=== PATIENT | female | born 1950 | race Caucasian/White ===

== ENCOUNTER → 2021-10-07 08:34 | Outpatient (BNVA) | payer MEDICARE, OTHER, SELFPAY | PROVIDERS: Family Provider Family Medicine; PCP Family Medicine; Visit Provider Internal Medicine Cardiovascular Disease | DX: Z79.01 Long term (current) use of anticoagulants (principal) ==

== ENCOUNTER → 2021-10-13 08:30 | Outpatient (BNVA) | payer MEDICARE, OTHER, SELFPAY | PROVIDERS: Family Provider Family Medicine; PCP Family Medicine; Visit Provider Internal Medicine Cardiovascular Disease | DX: Z79.01 Long term (current) use of anticoagulants (principal) ==

== ENCOUNTER → 2021-10-21 08:17 | Outpatient (BNVA) | payer MEDICARE, OTHER, SELFPAY | PROVIDERS: Family Provider Family Medicine; PCP Family Medicine; Visit Provider Internal Medicine Cardiovascular Disease | DX: Z79.01 Long term (current) use of anticoagulants (principal) ==

== ENCOUNTER → 2021-10-27 10:12 | Outpatient (BNVA) | payer MEDICARE, OTHER, SELFPAY | PROVIDERS: Family Provider Family Medicine; PCP Family Medicine; Visit Provider Internal Medicine Cardiovascular Disease | DX: I48.21 Permanent atrial fibrillation (principal); Z79.01 Long term (current) use of anticoagulants ==

== ENCOUNTER → 2021-11-05 12:29 | Outpatient (BNVA) | payer MEDICARE, OTHER, SELFPAY | PROVIDERS: Family Provider Family Medicine; PCP Family Medicine; Visit Provider Internal Medicine Cardiovascular Disease | DX: Z79.01 Long term (current) use of anticoagulants (principal) ==

== ENCOUNTER → 2021-11-12 13:00 | Outpatient (BNVA) | payer MEDICARE, OTHER, SELFPAY | PROVIDERS: Family Provider Family Medicine; PCP Family Medicine; Visit Provider Internal Medicine Cardiovascular Disease | DX: Z79.01 Long term (current) use of anticoagulants (principal) ==

== ENCOUNTER → 2021-11-16 16:38 | Outpatient (BNVA) | payer MEDICARE, OTHER, SELFPAY | PROVIDERS: Family Provider Family Medicine; PCP Family Medicine; Visit Provider Internal Medicine Cardiovascular Disease | DX: Z79.01 Long term (current) use of anticoagulants (principal) ==

== ENCOUNTER → 2021-11-24 09:58 | Outpatient (BNVA) | payer MEDICARE, OTHER, SELFPAY | PROVIDERS: Family Provider Family Medicine; PCP Family Medicine; Visit Provider Internal Medicine Cardiovascular Disease | DX: Z79.01 Long term (current) use of anticoagulants (principal) ==

== ENCOUNTER → 2021-12-01 09:30 | Outpatient (BNVA) | payer MEDICARE, OTHER, SELFPAY | PROVIDERS: Family Provider Family Medicine; PCP Family Medicine; Visit Provider Internal Medicine Cardiovascular Disease | DX: Z79.01 Long term (current) use of anticoagulants (principal) ==

== ENCOUNTER → 2021-12-09 12:18 | Outpatient (BNVA) | payer MEDICARE, OTHER, SELFPAY | PROVIDERS: Family Provider Family Medicine; PCP Family Medicine; Visit Provider Internal Medicine Cardiovascular Disease | DX: Z79.01 Long term (current) use of anticoagulants (principal) ==

== ENCOUNTER → 2021-12-13 15:34 | Outpatient (BNVA) | payer MEDICARE, OTHER, SELFPAY | PROVIDERS: Family Provider Family Medicine; PCP Family Medicine; Visit Provider Internal Medicine Cardiovascular Disease | DX: R06.02 Shortness of breath (principal); Z95.0 Presence of cardiac pacemaker; Z95.2 Presence of prosthetic heart valve; I48.20 Chronic atrial fibrillation, unspecified; Z79.01 Long term (current) use of anticoagulants; I50.33 Acute on chronic diastolic (congestive) heart failure | CPT/HCPCS: 36415; 80048; 83880; 93005; 99214; 99215 ==

== ENCOUNTER → 2021-12-15 09:07 | Outpatient (BNVA) | payer MEDICARE, OTHER, SELFPAY | PROVIDERS: Family Provider Family Medicine; PCP Family Medicine; Visit Provider Internal Medicine Cardiovascular Disease | DX: Z79.01 Long term (current) use of anticoagulants (principal) ==

== ENCOUNTER → 2021-12-23 08:42 | Outpatient (BNVA) | payer MEDICARE, OTHER, SELFPAY | PROVIDERS: Family Provider Family Medicine; PCP Family Medicine; Visit Provider Internal Medicine Cardiovascular Disease | DX: R06.02 Shortness of breath (principal); Z86.79 Personal history of other diseases of the circulatory system; Z79.01 Long term (current) use of anticoagulants | CPT/HCPCS: 80048; 83880 ==

== ENCOUNTER → 2021-12-31 09:49 | Outpatient (BNVA) | payer MEDICARE, OTHER, SELFPAY | PROVIDERS: Family Provider Family Medicine; PCP Family Medicine; Visit Provider Internal Medicine Cardiovascular Disease | DX: Z79.01 Long term (current) use of anticoagulants (principal) ==

== ENCOUNTER → 2022-01-05 10:07 | Outpatient (BNVA) | payer MEDICARE, OTHER, SELFPAY | PROVIDERS: Family Provider Family Medicine; PCP Family Medicine; Visit Provider Internal Medicine Cardiovascular Disease | DX: Z79.01 Long term (current) use of anticoagulants (principal) ==

== ENCOUNTER → 2022-01-06 10:43 | Outpatient (BNVA) | payer MEDICARE, OTHER, SELFPAY | PROVIDERS: Family Provider Family Medicine; PCP Family Medicine; Visit Provider Internal Medicine Cardiovascular Disease | DX: Z95.2 Presence of prosthetic heart valve (principal); R06.02 Shortness of breath; Z86.79 Personal history of other diseases of the circulatory system | CPT/HCPCS: 80048; 83880 ==

== ENCOUNTER → 2022-01-13 09:00 | Outpatient (BNVA) | payer MEDICARE, OTHER, SELFPAY | PROVIDERS: Family Provider Family Medicine; PCP Family Medicine; Visit Provider Internal Medicine Cardiovascular Disease | DX: Z79.01 Long term (current) use of anticoagulants (principal) ==

== ENCOUNTER → 2022-01-19 11:29 | Outpatient (BNVA) | payer MEDICARE, OTHER, SELFPAY | PROVIDERS: Family Provider Family Medicine; PCP Family Medicine; Visit Provider Internal Medicine Cardiovascular Disease | DX: Z79.01 Long term (current) use of anticoagulants (principal) ==

== ENCOUNTER 2022-01-20 13:07 | Outpatient (CLI) | payer MEDICARE, OTHER, SELFPAY ==
--- NOTE | 2022-01-20 13:45 | USCV_ITS ---
Richelle Klein Age: 71 Gender: F : 1950 Exam Date: 01/20/2022 13:27 Ordering Phys: Zachariah Harris MD ([email or web address]) Technologist: GRIS Exam Location: [facility] [place] Indication: AVR/MVR BP: 178 / 74 HR: 75 Rhythm: Atrial fibrillation Technical Quality: Adequate MEASUREMENTS (Male / Female) Normal Values 2D ECHO LVOT Diameter 2.0 cm LV Ejection Fraction MOD 2C 62.6 % LV Ejection Fraction 2C AL 62.2 % LA Diameter 4.8 cm LA Width 4.3 cm LA Height 6.0 cm RA Width 4.5 cm RA Height 6.7 cm Aorta at Sinotubular Diameter 1.4 cm IVC Diameter 2.5 cm M-MODE Aortic Annulus Diameter 2.1 cm LA Ao Ratio MM 1.9 DOPPLER AV Peak Velocity 347.0 cm/s LVOT Peak Velocity 111.0 cm/s AV Area Cont Eq vti 1.2 cm squared AV Area Cont Eq pk 1.0 cm squared MV Peak Velocity 228.0 cm/s MV Area PHT 5.0 cm squared MV E' Velocity 94.0 cm/s Mitral E to MV E' Ratio 9.3 Mitral E to LV E' Lateral Ratio 9.6 Mitral E to LV E' Septal Ratio 9.0 TR Peak Velocity 336.0 cm/s TR Peak Gradient 45.2 mmHg TR Mean Velocity 272.2 cm/s TR Mean Gradient 29.7 mmHg TR Velocity Time Integral 95.6 cm TV Peak E Velocity 90.0 cm/s Right Atrial Pressure 8.0 mmHg Pulmonary Artery Systolic Pressu 53.2 mmHg PV Peak Velocity 161.0 cm/s RV Acceleration Time 0.1 s RV Ejection Time 0.3 s RV AcT/ET 0.3 FINDINGS Left Ventricle Normal left ventricular size and systolic function, EF 64 %. No regional wall motion abnormalities. Right Ventricle Normal right ventricular size and systolic function. Pacemaker wire in the right ventricle Right Atrium Moderately increased right atrial size. Pacemaker wire in the right atrium Left Atrium Moderately increased left atrial size. Mitral Valve The bioprosthetic valve in the mitral position appears to be well-seated. Peak gradient across the mitral valve was 21 mmHg with a mean of 6 mmHg. Aortic Valve Bioprosthetic valve in the aortic position appears to be well- seated. The peak velocity of 3.42 m/s with a peak gradient of the 48 and a mean gradient of 22 mmHg. Valve area calculated to be 1.2 cm squared. Tricuspid Valve [id number] tricuspid valve regurgitation. Moderate pulmonary hypertension. Estimated pulmonary artery peak systolic pressure 53 mmHg Pulmonic Valve Mild pulmonary valve regurgitation. Pericardium No pericardial effusion. Aorta Normal aortic annulus size. IVC IVC could not be visualized well CONCLUSIONS Normal left ventricular size and systolic function, EF 64 %. No regional wall motion abnormalities. The bioprosthetic valve in the mitral position appears to be well-seated. Peak gradient across the mitral valve was 21 mmHg with a mean of 6 mmHg. Bioprosthetic valve in the aortic position appears to be well- seated. The peak velocity of 3.42 m/s with a peak gradient of the 48 and a mean gradient of 22 mmHg. Valve area calculated to be 1.2 cm squared. [id number] tricuspid valve regurgitation. Moderate pulmonary hypertension. Estimated pulmonary artery peak systolic pressure 53 mmHg. Moderate biatrial enlargement. There is no pericardial effusion. There are no intracardiac masses. Compared to the study from 05/08/2019, there may not be a significant change Dr Zachariah Harris MD [facility] (Electronically Signed) Final Date: 21 January 2022 18:16 S
== END 2022-01-20 13:08 | disposition home or self-care (01) ==
LOC: RAD 13:09
PROVIDERS: PCP Family Medicine; Visit Provider Internal Medicine Cardiovascular Disease
DX: Z95.4 Presence of other heart-valve replacement (principal); I07.1 Rheumatic tricuspid insufficiency; I27.20 Pulmonary hypertension, unspecified; I51.7 Cardiomegaly
CPT/HCPCS: 93306

== ENCOUNTER → 2022-01-27 12:40 | Outpatient (BNVA) | payer MEDICARE, OTHER, SELFPAY | PROVIDERS: PCP Family Medicine; Visit Provider Internal Medicine Cardiovascular Disease | DX: Z79.01 Long term (current) use of anticoagulants (principal) ==

== ENCOUNTER → 2022-02-04 08:29 | Outpatient (BNVA) | payer MEDICARE, OTHER, SELFPAY | PROVIDERS: PCP Family Medicine; Visit Provider Internal Medicine Cardiovascular Disease | DX: Z79.01 Long term (current) use of anticoagulants (principal) ==

== ENCOUNTER → 2022-02-11 09:14 | Outpatient (BNVA) | payer MEDICARE, OTHER, SELFPAY | PROVIDERS: PCP Family Medicine; Visit Provider Internal Medicine Cardiovascular Disease | DX: Z79.01 Long term (current) use of anticoagulants (principal) ==

== ENCOUNTER → 2022-02-16 09:04 | Outpatient (BNVA) | payer MEDICARE, OTHER, SELFPAY | PROVIDERS: PCP Family Medicine; Visit Provider Internal Medicine Cardiovascular Disease | DX: Z79.01 Long term (current) use of anticoagulants (principal) ==

== ENCOUNTER → 2022-02-22 10:43 | Outpatient (BNVA) | payer MEDICARE, OTHER, SELFPAY | PROVIDERS: PCP Family Medicine; Visit Provider Internal Medicine Cardiovascular Disease | DX: Z79.01 Long term (current) use of anticoagulants (principal) ==

== ENCOUNTER → 2022-06-20 15:22 | Outpatient (BNVA) | payer MEDICARE, OTHER, SELFPAY | PROVIDERS: PCP Family Medicine; Visit Provider Internal Medicine Cardiovascular Disease | DX: I35.0 Nonrheumatic aortic (valve) stenosis (principal); Z95.0 Presence of cardiac pacemaker; Z95.2 Presence of prosthetic heart valve; I48.91 Unspecified atrial fibrillation; Z79.01 Long term (current) use of anticoagulants | CPT/HCPCS: 99214 ==

== ENCOUNTER → 2023-01-13 10:05 | Outpatient (BNVA) | payer MEDICARE, OTHER, SELFPAY | PROVIDERS: PCP Family Medicine; Visit Provider Specialist | DX: I48.91 Unspecified atrial fibrillation (principal); I10 Essential (primary) hypertension; Z95.2 Presence of prosthetic heart valve; Z95.0 Presence of cardiac pacemaker; Z79.01 Long term (current) use of anticoagulants | CPT/HCPCS: 99214 ==

== ENCOUNTER 2023-01-30 12:08 | Outpatient (CLI) | payer MEDICARE, OTHER, SELFPAY ==
--- NOTE | 2023-01-30 12:45 | USCV_ITS ---
Richelle Klein Age: 72 Gender: F : 1950 Exam Date: 01/30/2023 12:44 Ordering Phys: Amita Ramirez MD ([email or web address]) Technologist: Exam Location: [facility] [place] Indication: valve replacement BP: 118 / 56 HR: 66 Rhythm: Atrial fibrillation Technical Quality: Adequate MEASUREMENTS (Male / Female) Normal Values 2D ECHO LV Diastolic Diameter PLAX 3.5 cm 4.2 - 5.9 / 3.9 - 5.3 cm LV Systolic Diameter PLAX 2.3 cm IVS Diastolic Thickness 1.3 cm 0.6 - 1.0 / 0.6 - 0.9 cm IVS Systolic Thickness 1.4 cm LVPW Diastolic Thickness 1.1 cm 0.6 - 1.0 / 0.6 - 0.9 cm LVPW Systolic Thickness 1.4 cm LVOT Diameter 2.0 cm LV Ejection Fraction 2D Teich 62.2 % LV Ejection Fraction MOD 2C 47.6 % LV Ejection Fraction 2C AL 50.0 % LA Diameter 3.3 cm DOPPLER AV Peak Velocity 293.5 cm/s LVOT Peak Velocity 92.0 cm/s AV Area Cont Eq vti 1.1 cm squared AV Area Cont Eq pk 1.0 cm squared MV Area PHT 3.7 cm squared Mitral E to A Ratio 4.1 MV E' Velocity 182.0 cm/s TR Peak Velocity 350.7 cm/s TR Peak Gradient 49.2 mmHg Right Atrial Pressure 3.0 mmHg Pulmonary Artery Systolic Pressu 52.2 mmHg RV Acceleration Time 0.2 s FINDINGS Left Ventricle Technically limited quality echocardiogram because of poor ultrasonic windows. Left ventricle is normal in size. LV systolic function is normal with EF 50 to 55%. No regional wall motion abnormalities are seen. Diastolic function is indeterminate because of atrial fibrillation Right Ventricle Grossly normla Right Atrium Not well visualized Left Atrium Dilated Mitral Valve Likely mechanical valve is seen. Trace mitral regurgitation. Aortic Valve Likely bioprosthetic valve. Mild aortic stenosis with aortic valve area 1.11 cm squared with mean gradient of 18 mmHg Tricuspid Valve Moderate tricuspid regurgitation. RVSP 60 to 65 mmHg. This is consistent with severe pulmonary hypertension. Pulmonic Valve Trace pulmonic regurgitation Pericardium Normal Aorta Normal in size IVC Appears to be normal CONCLUSIONS LV systolic function is normal with EF 50 to 55%. Diastolic function is indeterminate because of atrial fibrillation. Left atrial enlargement Possibly Mechanical valve is seen in mitral position. Trace mitral regurgitation Mildly elevated gradient across the bioprosthetic aortic valve. DVI is 0.34 which in normal Moderate tricuspid regurgitation Severe pulmononary hypertension Trace pulmonic regurgitation. Compared to prior echocardiogram from 12/2021, no significant changes are seen Hari Aragon MD (Electronically Signed) Final Date: 03 February 2023 17:20 S
== END 2023-01-30 12:09 | disposition home or self-care (01) ==
LOC: RAD 12:11
PROVIDERS: PCP Family Medicine; Visit Provider Specialist
DX: I48.91 Unspecified atrial fibrillation (principal); R06.02 Shortness of breath; Z95.2 Presence of prosthetic heart valve; I07.1 Rheumatic tricuspid insufficiency; I27.20 Pulmonary hypertension, unspecified
CPT/HCPCS: 93306

== ENCOUNTER → 2023-03-28 15:04 | Outpatient (BNVA) | payer MEDICARE, OTHER, SELFPAY | PROVIDERS: PCP Family Medicine; Visit Provider Internal Medicine Cardiovascular Disease | DX: Z45.010 Encounter for checking and testing of cardiac pacemaker pulse generator [battery] (principal) | CPT/HCPCS: 93296 ==

== ENCOUNTER → 2023-07-10 13:33 | Outpatient (BNVA) | payer MEDICARE, OTHER, SELFPAY | PROVIDERS: PCP Family Medicine; Visit Provider Internal Medicine Cardiovascular Disease | DX: Z95.2 Presence of prosthetic heart valve (principal); Z95.0 Presence of cardiac pacemaker; I10 Essential (primary) hypertension; R06.02 Shortness of breath; I48.91 Unspecified atrial fibrillation; Z79.01 Long term (current) use of anticoagulants | CPT/HCPCS: 99214 ==

== ENCOUNTER → 2024-01-08 15:30 | Outpatient (BNVA) | payer MEDICARE, OTHER, SELFPAY | PROVIDERS: PCP Internal Medicine Cardiovascular Disease; Visit Provider Internal Medicine Cardiovascular Disease | DX: R06.02 Shortness of breath (principal) | CPT/HCPCS: 36415; 80048; 83880; 99214 ==

== ENCOUNTER → 2024-03-13 09:54 | Outpatient (BNVA) | payer MEDICARE, OTHER, SELFPAY | PROVIDERS: PCP Internal Medicine Cardiovascular Disease; Visit Provider Internal Medicine | DX: Z45.010 Encounter for checking and testing of cardiac pacemaker pulse generator [battery] (principal) | CPT/HCPCS: 93296 ==

== ENCOUNTER → 2024-03-21 12:26 | Outpatient (BNVA) | payer MEDICARE, OTHER, SELFPAY | PROVIDERS: PCP Family Medicine; Visit Provider Internal Medicine Cardiovascular Disease | DX: I48.91 Unspecified atrial fibrillation (principal); Z79.01 Long term (current) use of anticoagulants; R07.9 Chest pain, unspecified; Z45.010 Encounter for checking and testing of cardiac pacemaker pulse generator [battery]; I10 Essential (primary) hypertension; Z88.9 Allergy status to unspecified drugs, medicaments and biological substances | CPT/HCPCS: 36415; 85025; 85610; 99214 ==

== ENCOUNTER 2024-04-12 08:35 | Outpatient (CLI) | payer MEDICARE, OTHER, SELFPAY ==
[2024-04-12 08:52] LABS: Basophils % 0.6 %; Eosinophils # 0.2 10^3/uL (0.0-0.8); Eosinophils % 2.8 %; Hematocrit 33.4 % (36-47); Lymphocytes # 0.7 10^3/uL (0.8-4.8); Lymphocytes % 13.4 %; Mean Corpuscular HGB Conc 31.1 g/dL (30-55); Mean Corpuscular Hemoglobin 26.7 pg (27-33); Mean Corpuscular Volume 85.9 fl (85-98); Mean Platelet Volume 9.5 fL (7.4-10.4); Monocytes # 0.7 10^3/uL (0.2-0.9); Monocytes % 12.3 %; Neutrophils # 3.73 10^3/uL (1.8-7.7); Neutrophils % 70.7 %; Nucleated Red Blood Cells % 0 %; Platelet Count 188 10^3/cmm (157-399); Red Blood Count 3.89 10^6/uL (3.85-5.65); Red Cell Distribution Width 16.2 % (12.1-15.1); White Blood Count 5.28 10^3/uL (3.29-11.43)
[2024-04-12 09:25] LABS: INR 1.88 (0.8-1.2)
== END 2024-04-12 08:36 | disposition home or self-care (01) ==
LOC: LAB 08:37
PROVIDERS: PCP Family Medicine; Visit Provider Internal Medicine Cardiovascular Disease
DX: Z86.79 Personal history of other diseases of the circulatory system (principal); I10 Essential (primary) hypertension
CPT/HCPCS: 36415; 85025; 85610

== ENCOUNTER 2024-04-12 13:54 | Inpatient (IN) | payer MEDICARE, OTHER, SELFPAY ==
--- OUTSIDE RECORDS SUMMARY | 2024-04-12 14:07 | XMS_ITS ---
Author Name Wilner Nelson Address [address] [place] [id number] Organization [facility] Address [address] [place] [address], [place] [id number] Care Team Providers Care Latin American Studies Professor Name Role Phone Wilner Nelson Primary Care Physician Unavail able Rafael Gordon Unavailable Unavailable Zachariah Harris Unavailable Unavailable Wilner Nelson Preferred Provider Unavailable Allergies and Adverse Reactions Name Reaction Notes codeine sulfate PENICILLINS SULFA (SULFONAMIDES) Verapamil Lovenox Phenergan Lidocaine Dilaudid hallucinations Nitroglycerin opens heart valves per pt opens heart valves too much PNEUMOCOCCAL VACCINE quinidine sulfate Norflex Demerol Plan of Treatment Planned Activity Comments Planned Date Planned Time Plan /Goal Screening annual mammography 02/12/2025 12:00 A M Medications Active Name Start Date Estimated Completion Date SIG Comments Vitamin C 500 mg oral tablet take 1 tablet by oral route Calcium 500 + D (D3) 500 mg(1,250mg) -125 unit oral tablet take 1 tablet by oral route multivitamin 1 tab every day cefpodoxime 200 mg oral tablet take 1 tablet 3 hours proir to dental procedure and 1 tablet 3 hours after procedure prn Fish Oil oral 1 qd Iron Plus oral Medium Compression Stocking 04/16/2018 Medium Compression Stockings Dx. Lower extremity edema Lubricant Eye Drops ophthalmic (eye) prn Tylenol 325 mg oral capsule prn warfarin 5 mg oral manage d in [place] albuterol sulfate HFA 90 mcg/actuation aerosol inhaler inhale 2 puffs (180 mcg) by inhalation route every 6 hours famotidine 10 mg tablet QHS metoprolol tartrate 25 mg tablet 08/30/2023 TAKE 1/2 TABLET TWICE DAILY lisinopril 20 mg tablet 08/30/2023 TAKE 1 TABLET TWICE DAILY potassium chloride ER 10 mEq tablet,extended release 08/30/2023 TAKE 1 TABLET TWICE DAILY amlodipine 5 mg tablet 08/30/2023 TAKE 1 TABLET EVERY DAY fluticasone propionate 50 mcg/actuation nasal spray,suspension 11/30/2023 use two sprays in each nostril EVERY DAY NEEDED for 30 days montelukast 10 mg tablet 02/02/2024 01/27/2025 take 1 tablet (10 mg) by oral route once daily in the evening for 90 days bumetanide 1 mg tablet 03/01/2024 TAKE 1 TABLET TWICE DAILY alprazolam 0.25 mg oral tablet 03/01/2024 06/29/2024 take 1 tablet by oral route 2 times a for 30 days Name Start Date Expiration Date SIG Comments Zithromax Z-Isaac 250 mg oral tablet 04/24/2008 04/29/2008 take 2 tablets (500 mg) by oral route once daily for 1 day then 1 tablet (250 mg) by oral route once daily for 4 days albuterol 90 mcg/actuation inhalation aerosol 04/24/2008 04/24/2008 inhale 2 puffs by inhalation route every 6 hours as needed doxycycline hyclate 100 mg oral tablet 05/16/2008 05/23/2008 take 1 tablet (100 mg) by oral route every 12 hours for 7 days Zithromax 250 mg oral tablet 06/24/2008 06/29/2008 take 2 tablets (500 mg) by oral route once daily for 1 day then 1 tablet (250 mg) by oral route once daily for 4 days Flonase 50 mcg/actuation nasal spray,suspension 07/02/2008 07/17/2008 inhale 2 sprays in each nostril by intranasal route once daily for 15 days Zithromax 250 mg oral tablet 09/24/2008 09/29/2008 take 2 tablets (500 mg) by oral route once daily for 1 day then 1 tablet (250 mg) by oral route once daily for 4 days Zithromax Z-Isaac 250 mg oral tablet 10/21/2008 10/26/2008 take 2 tablets (500mg) by oral route once daily for 1 day then 1 tablet (250mg) by oral route once daily for 4 days Levaquin 500 mg oral tablet 12/30/2008 01/06/2009 take 1 tablet (500 mg) by oral route once daily for 7 days Keflex 500 mg oral capsule 03/09/2009 03/23/2009 take 1 capsule by oral route 3 times a day for 7 days Lasix 20 mg oral tablet 03/09/2009 03/14/2009 take 1 tablet (20 mg) by oral route once daily for 5 days Keflex 500 mg oral capsule 06/17/2009 06/24/2009 take 1 capsule by oral route 3 times a day for 7 days Flonase 50 mcg/actuation nasal spray,suspension 11/26/2009 12/26/2009 inhale 1 spray in each nostril by intranasal route once daily for 30 days Keflex 500 mg oral capsule 03/04/2010 03/11/2010 take 1 capsule by oral route 3 times a day for 7 days Medrol (Isaac) 4 mg oral tablets,dose pack 07/08/2010 07/14/2010 take as directed for 6 days Lortab 5-500 mg oral tablet 07/08/2010 07/15/2010 take 1 tablet by oral route every 6 hours as needed for pain for 7 days Zithromax Z-Isaac 250 mg oral tablet 08/24/2010 08/29/2010 take 2 tablets (500mg) by oral route once daily for 1 day then 1 tablet (250mg) by oral route once daily for 4 days Keflex 500 mg oral capsule 04/01/2011 04/08/2011 take 1 capsule by oral route 3 times a day for 7 days Fish Oil 1,000 mg oral capsule 12/16/2011 01/15/2012 take 1 capsule by oral route 2 times a day for 30 days pt. states i take 1 qd Keflex 500 mg oral capsule 08/23/2013 take 1 capsule (500mg) by oral route every 12 hours for 7 days albuterol sulfate 90 mcg/actuation inhalation HFA aerosol inhaler 09/27/2013 11/06/2013 inhale 2 puffs by inhalation route every 6 hours as needed for 10 days prednisone 10 mg oral tablet 10/09/2013 10/23/2013 take 3 tablets (30 mg) by oral route once daily x 5 [id number] x 5 days, 10 mg qd x 5 days Guaifenesin AC 10-100 mg/5 mL oral liquid 10/09/2013 10/29/2013 take 10 milliliters by oral route every 4 hours as needed for 10 days Flovent Diskus 100 mcg/actuation inhalation blister with device 10/09/2013 10/23/2013 inhale 1 puff (100 mcg) by inhalation route 2 times per day for 14 days Zyrtec 10 mg oral tablet 01/01/2014 12/27/2014 take 1 tablet (10 mg) by oral route once daily for 90 days Levaquin 500 mg oral tablet 06/05/2014 06/12/2014 take 1 tablet (500 mg) by oral route once daily for 7 days Coumadin Oral 10/29/2014 10/30/[address] Neo Helms 500 mg oral capsule 10/29/2014 11/05/2014 take 1 capsule by oral route 3 times a day for 7 days Claritin 10 mg oral tablet 05/14/2015 09/11/2015 take 1 tablet (10 mg) by oral route once daily for 30 days Colace 100 mg oral capsule 02/28/2017 03/30/2017 take 1 capsule (100 mg) by oral route once daily for 30 days prn Zithromax Z-Isaac 250 mg oral tablet 08/16/2017 08/21/2017 take 2 tablets (500 mg) by oral route once daily for 1 day then 1 tablet (250 mg) by oral route once daily for 4 days Medrol (Isaac) 4 mg oral tablets,dose pack 08/16/2017 08/22/2017 take as directed for 6 days Zithromax Z-Isaac 250 mg oral tablet 08/25/2017 08/30/2017 take 2 tablets (500 mg) by oral route once daily for 1 day then 1 tablet (250 mg) by oral route once daily for 4 days cefdinir 300 mg oral capsule 08/30/2018 09/06/2018 take 1 capsule (300 mg) by oral route every 12 hours for 7 days prednisone 10 mg oral tablet 11/13/2018 11/27/2018 take 3 tablets (30 mg) by oral route once daily x 5 [id number] x 5 days, 10 mg qd x 5 days montelukast 10 mg oral tablet 12/25/2018 12/20/2019 take 1 tablet (10 mg) by oral route once daily in the evening for 30 days dc per pt Relief 15-20mm HG Hose 12/23/2020 01/22/2021 Closed Toe Knee High Unisex Support Hose Ventolin HFA 90 mcg/actuation aerosol inhaler 08/30/2021 09/29/2021 inhale 1 - 2 puffs (90 - 180 mcg) by inhalation route every 4-6 hours as needed for 30 days Xyzal oral tablet 5 mg 06/09/2022 06/23/2022 take 1 tablet (5 mg) by oral route once daily in the evening for 14 days diclofenac 1 % topical gel 02/02/2023 02/12/2023 apply 2 grams to the affected area(s) by topical route 4 times per day for 10 days doxycycline monohydrate 100 mg capsule 02/02/2024 02/09/2024 take 1 capsule (100 mg) by oral route every 12 hours for 7 days Discontinued Name Start Date Discontinued Date SIG Comment s Zestoretic 20-12.5 mg oral tablet 06/24/2008 07/02/2008 take 1 tablet by oral route 2 times a day ProAir HFA 90 mcg/actuation inhalation HFA aerosol inhaler 12/30/2008 03/04/2010 inhale 2 puffs by inhalation route every 6 hours as needed Symbicort 160-4.5 mcg/actuation inhalation HFA aerosol inhaler 12/30/2008 01/08/2009 inhale 2 puffs by inhalation route 2 times per day morning and evening [facility] 11/18/2009 Zithromax Z-Isaac 250 mg oral tablet 06/17/2009 06/17/2009 take 2 tablets (500mg) by oral route once daily for 1 day then 1 tablet (250mg) by oral route once daily for 4 days digoxin 250 mcg oral tablet 08/12/2009 03/04/2010 TAKE 1 TABLET BY MOUTH ONCE DAILY Benadryl Allergy Sinus Child's 12.5-30 mg/5 mL oral liquid 12/19/2012 take 1.5 milliliters by oral route daily lisinopril-hydrochlorothi azide 20-12.5 mg oral tablet 11/26/2009 03/04/2010 take 1 tablet by oral route 2 times a day for 30 days hydrochlorothiazide 12.5 mg oral tablet 10/18/2016 take 1 tablet (12.5 mg) by oral route once daily Was adis Obrien last week due to passing out Benedryl 04/13/2015 Zyrtec 10 mg oral tablet 08/23/2013 09/27/2013 kasie e 1 tablet (10 mg) by oral route once daily for 30 days Harika Allergy 180 mg oral tablet 09/27/2013 10/09/2013 take 1 tablet (180 mg) by oral route once daily for 30 days Flovent HFA 110 mcg/actuation inhalation HFA aerosol inhaler 10/03/2013 10/07/2013 inhale 2 puffs (220 mcg) by inhalation route 2 times per day for 30 days changed to ProAir ProAir HFA 90 mcg/actuation inhalation HFA aerosol inhaler 10/07/2013 01/01/2014 inhale 1 - 2 puffs by inhalation route every 6 hours as needed atenolol 25 mg oral tablet 06/05/2014 04/12/2017 take 1 tablet by oral route daily for [address] Larson Harika Allergy 180 mg oral tablet 04/06/2016 take .5 tablet (180 mg) by oral route once daily omeprazole 20 mg oral capsule,delayed release(/EC) 08/07/2015 04/06/2016 take 1 capsule (20 mg) by oral route once daily before a meal for 30 days Pepcid AC 10 mg oral tablet 06/14/2023 take 1 tablet (10 mg) by oral route once daily as needed Benadryl 25 mg oral capsule 04/12/2017 childrens benadryl prn Immune Support Complex 75 mg oral tablet 07/28/2016 take 1 tablet by oral route daily Harika Allergy 180 mg oral tablet 08/16/2017 take 1 tablet (180 mg) by oral route once daily prn throat pain and dry lungs . carvedilol 25 mg oral tablet 08/23/2017 take 1 tablet (25 mg) by oral route 2 times per day with food hydralazine 10 mg oral tablet 06/19/2017 07/07/2017 take 1-3 tablets by oral route 3 times a day for 30 days [facility] took pt off furosemide 20 mg oral tablet 08/30/2018 11/13/2018 TAKE 1 TABLET TWICE DAILY Zyrtec 10 mg oral capsule 06/09/2022 ta ke 1/2 capsule by oral route Problem List Description Status Onset Aortic stenosis Active Osteopenia of multiple sites Active 05/2017 Other non-autoimmune hemolytic anemias Active 10/12/2017 Refractory anemia Active Hypercoagulopathy Active Hypercoagulability due to atrial fibrillation Ac tive Chronic diastolic congestive heart failure Activ e 06/02/2021 Atrial fibrillation Active Hypertensive Heart Disease With Heart Failure Ac tive Vital Signs Date Time BP-Sys(mm[Hg] BP-Radha(mm[Hg]) HR(bpm) RR(rpm) Temp WT HT HC BMI BSA BMI Percentile O2 Sat(%) 2023 1:57: 00 PM 122 mm[Hg] 60 mm[Hg] 67 {beats}/ min 18 rpm 179 .37 5 lbs 64 in 30.7 893 kg/m 2 1.91 68 m2 96 % 024 8:42: 00 AM 130 mm[Hg] 68 mm[Hg] 78 {beats}/ min 20 rpm 179 .25 lbs 64 in 30.7 7 kg/m 2 1.92 m2 98 % 2023 9:52: 00 AM 130 mm[Hg] 80 mm[Hg] 66 {beats}/ min 18 rpm 178 .5 lbs 64 in 30.6 391 kg/m 2 1.91 21 m2 98 % 2023 11:01 :00 AM 138 mm[Hg] 76 mm[Hg] 79 {beats}/ min 18 rpm 179 lbs 64 in 30.7 2 kg/m 2 1.91 m2 97 % 06/20 9:39: 00 AM 136 mm[Hg] 70 mm[Hg] 79 {beats}/ min 16 rpm 179 .12 5 lbs 64 in 30.7 464 kg/m 2 1.91 54 m2 98 % 06/14 9:30: 00 AM 138 mm[Hg] 70 mm[Hg] 68 {beats}/ min 178 .37 5 lbs 64 in 30.6 2 kg/m 2 1.91 m2 99 % 023 1:33: 00 PM 124 mm[Hg] 70 mm[Hg] 74 {beats}/ min 18 rpm 180 .25 lbs 64 in 30.9 395 kg/m 2 1.92 14 m2 97 % 2022 9:58: 00 AM 132 mm[Hg] 70 mm[Hg] 69 {beats}/ min 16 rpm 177 .25 lbs 64 in 30.4 2 kg/m 2 1.91 m2 97 % 06/09 9:48: 00 AM 132 mm[Hg] 70 mm[Hg] 75 {beats}/ min 16 rpm 175 lbs 64 in 30.0 384 kg/m 2 1.89 33 m2 97 % 022 10:15 :00 AM 138 mm[Hg] 62 mm[Hg] 60 {beats}/ min 18 rpm 176 .37 5 lbs 64 in 30.2 7 kg/m 2 1.90 m2 99 % 2020 10:43 :00 AM 128 mm[Hg] 78 mm[Hg] 60 {beats}/ min 18 rpm 176 .37 5 lbs 64 in 30.2 744 kg/m 2 1.90 07 m2 98 % 2020 10:04 :00 AM 139 mm[Hg] 78 mm[Hg] 69 {beats}/ min 18 rpm 175 lbs 64 in 30.0 4 kg/m 2 1.89 m2 99 % 2:47: 00 PM 162 mm[Hg] 72 mm[Hg] 021 2:41: 00 PM 174 mm[Hg] 70 mm[Hg] 59 {beats}/ min 175 lbs 64 in 30.0 384 kg/m 2 1.89 33 m2 96 % 2020 9:31: 00 AM 122 mm[Hg] 80 mm[Hg] 60 {beats}/ min 174 .37 5 lbs 64 in 29.9 3 kg/m 2 1.89 m2 99 % 2020 3:42: 00 PM 130 mm[Hg] 62 mm[Hg] 79 {beats}/ min 18 rpm 97.5 F 178 .12 5 lbs 64. 5 in 30.1 026 kg/m 2 1.91 75 m2 99 % 05/19 1:52: 00 PM 148 mm[Hg] 88 mm[Hg] 75 {beats}/ min 18 rpm 173 .5 lbs 64. 5 in 29.3 2 kg/m 2 1.89 m2 99 % 05/15 11:04 :00 AM 130 mm[Hg] 86 mm[Hg] 58 {beats}/ min 18 rpm 171 .12 5 lbs 64. 5 in 28.9 196 kg/m 2 1.87 95 m2 97 % 2018 1:52: 00 PM 134 mm[Hg] 70 mm[Hg] 88 {beats}/ min 18 rpm 173 .37 5 lbs 65 in 28.8 5 kg/m 2 1.90 m2 95 % 2018 3:44: 00 PM 158 mm[Hg] 74 mm[Hg] 77 {beats}/ min 18 rpm 175 .37 5 lbs 65 in 29.1 836 kg/m 2 1.91 m2 95 % 2018 8:56: 00 AM 134 mm[Hg] 74 mm[Hg] 74 {beats}/ min 20 rpm 98.6 F 175 .37 5 lbs 65 in 29.1 8 kg/m 2 1.91 m2 99 % 2018 10:40 :00 AM 136 mm[Hg] 80 mm[Hg] 61 {beats}/ min 16 rpm 175 .25 lbs 65 in 29.1 628 kg/m 2 1.90 93 m2 99 % 2018 10:59 :00 AM 132 mm[Hg] 82 mm[Hg] 72 {beats}/ min 18 rpm 98 F 177 lbs 65 in 29.4 5 kg/m 2 1.92 m2 98 % 2018 10:18 :00 AM 130 mm[Hg] 78 mm[Hg] 65 {beats}/ min 16 rpm 97.3 F 176 .5 lbs 65 in 29.3 708 kg/m 2 1.91 61 m2 96 % 2017 10:22 :00 AM 140 mm[Hg] 76 mm[Hg] 2017 10:03 :00 AM 148 mm[Hg] 68 mm[Hg] 60 {beats}/ min 18 rpm 174 .25 lbs 65 in 29.0 0 kg/m 2 1.90 m2 99 % 2017 10:34 :00 AM 134 mm[Hg] 80 mm[Hg] 66 {beats}/ min 18 rpm 166 lbs 65 in 27.6 236 kg/m 2 1.85 83 m2 2017 9:48: 00 AM 140 mm[Hg] 76 mm[Hg] 64 {beats}/ min 164 lbs 65 in 27.2 9 kg/m 2 1.85 m2 2017 2:24: 00 PM 188 mm[Hg] 92 mm[Hg] 72 {beats}/ min 165 .37 5 lbs 65 in 27.5 196 kg/m 2 1.85 48 m2 2017 10:42 :00 AM 176 mm[Hg] 60 mm[Hg] 74 {beats}/ min 22 rpm 160 .25 lbs 65 in 26.6 7 kg/m 2 1.83 m2 2017 11:51 :00 AM 164 mm[Hg] 84 mm[Hg] 2017 11:25 :00 AM 170 mm[Hg] 88 mm[Hg] 64 {beats}/ min 20 rpm 98.8 F 165 .5 lbs 65 in 27.5 404 kg/m 2 1.85 55 m2 98 % 2017 9:22: 00 AM 150 mm[Hg] 74 mm[Hg] 82 {beats}/ min 20 rpm 97 F 171 .12 5 lbs 65 in 28.4 8 kg/m 2 1.89 m2 97 % 2016 12:12 :00 PM 172 mm[Hg] 90 mm[Hg] 2016 11:28 :00 AM 188 mm[Hg] 86 mm[Hg] 60 {beats}/ min 18 rpm 97.6 F 169 lbs 65 in 28.1 228 kg/m 2 1.87 5 m2 97 % 06/19 2:45: 00 PM 192 mm[Hg] 84 mm[Hg] 84 {beats}/ min 175 .12 5 lbs 65 in 29.1 4 kg/m 2 1.91 m2 97 % 06/14 8:29: 00 AM 138 mm[Hg] 82 mm[Hg] 06/14 7:56: 00 AM 154 mm[Hg] 76 mm[Hg] 60 {beats}/ min 18 rpm 97.5 F 173 .5 lbs 65 in 28.8 716 kg/m 2 1.89 98 m2 97 % 2016 1:56: 00 PM 180 mm[Hg] 96 mm[Hg] 88 {beats}/ min 171 .5 lbs 65 in 28.5 4 kg/m 2 1.89 m2 05/24 1:27: 00 PM 148 mm[Hg] 80 mm[Hg] 88 {beats}/ min 18 rpm 98 F 175 lbs 97 % 05/17 10:00 :00 AM 126 mm[Hg] 80 mm[Hg] 60 {beats}/ min 22 rpm 98.2 F 174 .5 lbs 65 in 29.0 38 kg/m 2 1.90 53 m2 98 % 2016 1:52: 00 PM 140 mm[Hg] 60 mm[Hg] 2016 1:34: 00 PM 172 mm[Hg] 70 mm[Hg] 72 {beats}/ min 16 rpm 168 .5 lbs 65 in 28.0 396 kg/m 2 1.87 22 m2 2016 10:16 :00 AM 174 mm[Hg] 76 mm[Hg] 2016 9:04: 00 AM 196 mm[Hg] 78 mm[Hg] 84 {beats}/ min 20 rpm 97.9 F 165 .5 lbs 65 in 27.5 404 kg/m 2 1.85 55 m2 99 % 2016 2:36: 00 PM 146 mm[Hg] 74 mm[Hg] 2016 1:56: 00 PM 152 mm[Hg] 74 mm[Hg] 72 {beats}/ min 16 rpm 97.9 F 166 .12 5 lbs 65 in 27.6 444 kg/m 2 1.85 9 m2 97 % 017 4:25: 00 PM 138 mm[Hg] 92 mm[Hg] 017 4:07: 00 PM 144 mm[Hg] 92 mm[Hg] 70 {beats}/ min 18 rpm 166 .12 5 lbs 65 in 27.6 444 kg/m 2 1.85 9 m2 96 % 2016 3:53: 00 PM 182 mm[Hg] 90 mm[Hg] 76 {beats}/ min 18 rpm 98.1 F 163 .12 5 lbs 65 in 27.1 5 kg/m 2 1.84 m2 98 % 017 3:48: 00 PM 158 mm[Hg] 78 mm[Hg] 74 {beats}/ min 16 rpm 163 .5 lbs 65 in 27.2 075 kg/m 2 1.84 42 m2 017 12:13 :00 PM 165 mm[Hg] 62 mm[Hg] 61 {beats}/ min 017 12:13 :00 PM 153 mm[Hg] 65 mm[Hg] 78 {beats}/ min 017 12:13 :00 PM 149 mm[Hg] 69 mm[Hg] 74 {beats}/ min 017 11:23 :00 AM 150 mm[Hg] 72 mm[Hg] 80 {beats}/ min 16 rpm 166 .12 5 lbs 65 in 27.6 444 kg/m 2 1.85 9 m2 017 2:45: 00 PM 158 mm[Hg] 76 mm[Hg] 48 {beats}/ min 16 rpm 97.7 F 168 .5 lbs 65 in 28.0 4 kg/m 2 1.87 m2 99 % 2016 2:07: 00 PM 168 mm[Hg] 74 mm[Hg] 2016 1:31: 00 PM 148 mm[Hg] 86 mm[Hg] 78 {beats}/ min 18 rpm 98.6 F 167 lbs 017 1:40: 00 PM 182 mm[Hg] 78 mm[Hg] 80 {beats}/ min 16 rpm 165 .25 lbs 65 in 27.4 988 kg/m 2 1.85 41 m2 017 11:48 :00 AM 182 mm[Hg] 88 mm[Hg] 78 {beats}/ min 20 rpm 97.9 F 165 lbs 65 in 27.4 6 kg/m 2 1.85 m2 98 % 017 3:17: 00 PM 142 mm[Hg] 80 mm[Hg] 74 {beats}/ min 18 rpm 96.6 F 163 .5 lbs 65 in 27.2 075 kg/m 2 1.84 42 m2 98 % 07/28 4:10: 00 PM 148 mm[Hg] 78 mm[Hg] 82 {beats}/ min 20 rpm 98.9 F 167 .5 lbs 65 in 27.8 7 kg/m 2 1.87 m2 98 % 016 2:25: 00 PM 126 mm[Hg] 74 mm[Hg] 78 {beats}/ min 18 rpm 165 .12 5 lbs 65 in 27.4 78 kg/m 2 1.85 34 m2 2015 8:40: 00 AM 130 mm[Hg] 80 mm[Hg] 76 {beats}/ min 20 rpm 98.7 F 169 lbs 65 in 28.1 2 kg/m 2 1.87 m2 016 9:05: 00 AM 168 mm[Hg] 80 mm[Hg] 76 {beats}/ min 97 F 169 lbs 65 in 28.1 228 kg/m 2 1.87 5 m2 05/14 10:50 :00 AM 148 mm[Hg] 86 mm[Hg] 72 {beats}/ min 16 rpm 97.5 F 167 .12 5 lbs 65 in 27.8 1 kg/m 2 1.86 m2 2014 8:49: 00 AM 139 mm[Hg] 70 mm[Hg] 70 {beats}/ min 16 rpm 168 .12 5 lbs 65 in 27.9 772 kg/m 2 1.87 01 m2 015 11:21 :00 AM 140 mm[Hg] 88 mm[Hg] 72 {beats}/ min 16 rpm 165 lbs 65 in 27.4 6 kg/m 2 1.85 m2 2013 9:56: 00 AM 154 mm[Hg] 70 mm[Hg] 82 {beats}/ min 16 rpm 97.3 F 164 lbs 65 in 27.2 907 kg/m 2 1.84 7 m2 05/30 10:28 :00 AM 148 mm[Hg] 70 mm[Hg] 88 {beats}/ min 18 rpm 98.2 F 164 lbs 65 in 27.2 9 kg/m 2 1.85 m2 014 10:53 :00 AM 134 mm[Hg] 74 mm[Hg] 76 {beats}/ min 161 lbs 65 in 26.7 915 kg/m 2 1.83 01 m2 2013 4:14: 00 PM 150 mm[Hg] 80 mm[Hg] 72 {beats}/ min 18 rpm 159 .5 lbs 65 in 26.5 4 kg/m 2 1.82 m2 014 9:13: 00 AM 146 mm[Hg] 68 mm[Hg] 76 {beats}/ min 16 rpm 96.3 F 156 .12 5 lbs 65 in 25.9 803 kg/m 2 1.80 22 m2 2013 1:43: 00 PM 150 mm[Hg] 74 mm[Hg] 72 {beats}/ min 16 rpm 100.1 F 158 .25 lbs 65 in 26.3 3 kg/m 2 1.81 m2 2013 11:32 :00 AM 156 mm[Hg] 80 mm[Hg] 68 {beats}/ min 24 rpm 97.9 F 158 lbs 65 in 26.2 923 kg/m 2 1.81 29 m2 06/25 9:22: 00 AM 126 mm[Hg] 72 mm[Hg] 78 {beats}/ min 16 rpm 154 .31 2 lbs 65 in 25.6 8 kg/m 2 1.79 m2 2012 8:41: 00 AM 122 mm[Hg] 68 mm[Hg] 74 {beats}/ min 68 F 165 .12 5 lbs 65 in 27.4 78 kg/m 2 1.85 34 m2 06/19 8:41: 00 AM 126 mm[Hg] 72 mm[Hg] 76 {beats}/ min 95 F 163 .25 lbs 65 in 27.1 7 kg/m 2 1.84 m2 2011 8:30: 00 AM 158 mm[Hg] 70 mm[Hg] 80 {beats}/ min 18 rpm 98.2 F 162 lbs 2011 8:49: 00 AM 138 mm[Hg] 70 mm[Hg] 69 {beats}/ min 163 .12 5 lbs 06/13 9:26: 00 AM 128 mm[Hg] 70 mm[Hg] 76 {beats}/ min 164 .37 5 lbs 05/12 3:52: 00 PM 160 mm[Hg] 84 mm[Hg] 80 {beats}/ min 164 .5 lbs 65 in 27.3 74 kg/m 2 1.84 99 m2 011 3:18: 00 PM 168 mm[Hg] 78 mm[Hg] 84 {beats}/ min 99 F 168 lbs 011 11:30 :00 AM 158 mm[Hg] 68 mm[Hg] 84 {beats}/ min 163 .5 lbs 2010 3:58: 00 PM 158 mm[Hg] 72 mm[Hg] 80 {beats}/ min 20 rpm 98 F 166 .25 lbs 2009 1:29: 00 PM 142 mm[Hg] 76 mm[Hg] 84 {beats}/ min 97.8 F 05/26 10:02 :00 AM 126 mm[Hg] 80 mm[Hg] 92 {beats}/ min 158 .37 5 lbs 010 3:35: 00 PM 84 {beats}/ min 154 .25 lbs 010 3:30: 00 PM 180 mm[Hg] 92 mm[Hg] 010 3:30: 00 PM 174 mm[Hg] 90 mm[Hg] 010 3:30: 00 PM 160 mm[Hg] 90 mm[Hg] 2009 12:15 :00 PM 164 mm[Hg] 64 mm[Hg] 64 {beats}/ min 163 .25 lbs 2009 10:43 :00 AM 126 mm[Hg] 72 mm[Hg] 60 {beats}/ min 161 .12 5 lbs 06/17 4:27: 00 PM 130 mm[Hg] 66 mm[Hg] 72 {beats}/ min 97.3 F 161 .25 lbs 05/12 9:11: 00 AM 110 mm[Hg] 62 mm[Hg] 76 {beats}/ min 16 rpm 159 .25 lbs 2008 8:58: 00 AM 128 mm[Hg] 72 mm[Hg] 60 {beats}/ min 96.8 F 162 lbs 98 % 2008 10:39 :00 AM 132 mm[Hg] 60 mm[Hg] 60 {beats}/ min 159 .25 lbs 009 10:03 :00 AM 152 mm[Hg] 68 mm[Hg] 78 {beats}/ min 16 rpm 98.6 F 159 lbs 98 % 2008 2:08: 00 PM 140 mm[Hg] 78 mm[Hg] 64 {beats}/ min 98.6 F 2008 11:53 :00 AM 138 mm[Hg] 68 mm[Hg] 98.4 F 159 lbs 2007 4:05: 00 PM 144 mm[Hg] 70 mm[Hg] 68 {beats}/ min 16 rpm 98.6 F 162 .37 5 lbs 06/24 2:38: 00 PM 80 {beats}/ min 97.9 F 161 lbs 05/16 3:29: 00 PM 170 mm[Hg] 80 mm[Hg] 68 {beats}/ min 97.9 F 162 lbs 2007 3:51: 00 PM 162 mm[Hg] 72 mm[Hg] 72 {beats}/ min 28 rpm 98 F 163 lbs 2007 10:22 :00 AM 122 mm[Hg] 62 mm[Hg] 80 {beats}/ min 156 .25 lbs Social History Name Description Comments Tobacco Never smoker 06/20/2023 - 12/2022 - 12/12/2022 - 06/09/2022 - 12/02/2021 - 12/23/2020 - 12/02/2020 - 08/28/2020 - 05/19/2020 - 05/15/2019 - 11/13/2018 - 10/16/2018 - 04/16/2018 - 10/12/2017 - Alcohol Never 02/28/2024 - - 02/02/2023 - 12/12/2022 - 06/09/2022 - 12/02/2021 - 12/23/2020 - 12/02/2020 - 08/28/2020 - Amount used: 0-2 per day LIVING WILL 06/14/2023 - not interested in doing History of Procedures Date Ordered Description Order Status 02/07/2008 12:00 AM PROTHROMBIN TIME Reviewed 02/07/2008 12:00 AM COMPLETE CBC W/AUTO DIFF WBC Reviewed 02/07/2008 12:00 AM ASSAY OF DIGOXIN TOTAL Review ed 02/07/2008 12:00 AM METABOLIC PANEL TOTAL CA Revi ewed 05/08/2009 12:00 AM METABOLIC PANEL TOTAL CA Revi ewed 05/08/2009 12:00 AM LIPID PANEL Reviewed 05/08/2009 12:00 AM HEPATIC FUNCTION PANEL Review ed 05/08/2009 12:00 AM COMPLETE CBC W/AUTO DIFF WBC Reviewed 05/08/2009 12:00 AM ASSAY OF DIGOXIN TOTAL Review ed 05/08/2009 12:00 AM ASSAY THYROID STIM HORMONE Re viewed 05/08/2009 12:00 AM URINALYSIS NONAUTO W/O SCOPE Reviewed 03/25/2015 2:41 PM UNLISTED PREVENTIVE SERVICE Re viewed 04/02/2015 12:00 AM METABOLIC PANEL TOTAL CA Revie wed 04/02/2015 12:00 AM COMPLETE CBC W/AUTO DIFF WBC R eviewed 04/02/2015 12:00 AM LIPID PANEL Reviewed 04/02/2015 12:00 AM HEPATIC FUNCTION PANEL Reviewe d 04/02/2015 12:00 AM ASSAY THYROID STIM HORMONE Rev iewed 04/02/2015 12:00 AM URINALYSIS AUTO W/SCOPE Review ed 04/02/2015 12:00 AM VITAMIN D 25 HYDROXY Reviewed 02/04/2010 12:00 AM COMPLETE CBC W/AUTO DIFF WBC R eviewed 04/06/2016 12:00 AM URINALYSIS AUTO W/SCOPE Review ed 04/06/2016 12:00 AM VITAMIN D 25 HYDROXY Reviewed 04/06/2016 12:00 AM ASSAY THYROID STIM HORMONE Rev iewed 04/06/2016 12:00 AM COMPLETE CBC W/AUTO DIFF WBC R eviewed 04/06/2016 12:00 AM LIPID PANEL Reviewed 04/06/2016 12:00 AM COMPREHEN METABOLIC PANEL Revi ewed 02/11/2010 12:00 AM METABOLIC PANEL TOTAL CA Revi ewed 08/03/2016 12:00 AM PROTHROMBIN TIME Reviewed 05/20/2010 12:00 AM METABOLIC PANEL TOTAL CA Rev iewed 05/20/2010 12:00 AM COMPLETE CBC W/AUTO DIFF WBC Reviewed 10/04/2016 12:00 AM ECG MONIT/REPRT UP TO 48 HRS R eviewed 10/14/2016 12:00 AM METABOLIC PANEL TOTAL CA Revi ewed 10/18/2016 12:00 AM FALL PLAN OF CARE DOCD Review ed 10/27/2016 12:00 AM METABOLIC PANEL TOTAL CA Revi ewed 11/04/2016 12:00 AM METABOLIC PANEL TOTAL CA Revie mon11/04/2016 12:00 AM COMPLETE CBC AUTOMATED Reviewe d 11/04/2016 12:00 AM ASSAY THYROID STIM HORMONE Rev iewed 11/04/2016 12:00 AM ASSAY OF MAGNESIUM Reviewed 11/14/2016 12:00 AM Screening mammogram* Returned 05/20/2010 12:00 AM ALANINE AMINO (ALT) (SGPT) R eviewed 12/14/2016 12:00 AM METABOLIC PANEL TOTAL CA Revi ewed 02/16/2017 12:00 AM TRANS CARE MGMT 14 DAY DISCH Reviewed 02/16/2017 12:00 AM UNLISTED PREVENTIVE SERVICE R eviewed 02/28/2017 12:00 AM METABOLIC PANEL TOTAL CA Revie mon02/28/2017 12:00 AM PROTHROMBIN TIME Reviewed 03/24/2017 12:00 AM METABOLIC PANEL TOTAL CA Revi ewed 08/06/2010 12:00 AM METABOLIC PANEL TOTAL CA Revie mon08/06/2010 12:00 AM ASSAY THYROID STIM HORMONE Rev iewed 04/10/2017 12:00 AM DXA BONE DENSITY AXIAL Return ed 04/10/2017 12:00 AM ASSAY THYROID STIM HORMONE Re viewed 04/10/2017 12:00 AM VITAMIN D 25 HYDROXY Reviewed 04/10/2017 12:00 AM COMPREHEN METABOLIC PANEL Rev iewed 04/10/2017 12:00 AM LIPID PANEL Reviewed 04/10/2017 12:00 AM COMPLETE CBC W/AUTO DIFF WBC Reviewed 04/10/2017 12:00 AM URINALYSIS AUTO W/SCOPE Revie wed 05/20/2010 12:00 AM ASSAY BLD/SERUM CHOLESTEROL Reviewed 05/12/2017 12:00 AM UNLISTED PREVENTIVE SERVICE Reviewed 05/24/2017 12:00 AM METABOLIC PANEL TOTAL CA Rev iewed 05/25/2017 12:00 AM CHEST X-RAY 1 VIEW FRONTAL R evondinawed 06/06/2017 12:00 AM METABOLIC PANEL TOTAL CA Revi ewed 08/06/2010 12:00 AM FREE ASSAY (FT-3) Reviewed 07/11/2017 12:00 AM METABOLIC PANEL TOTAL CA Rev iewed 08/06/2010 12:00 AM ASSAY OF FREE THYROXINE Review ed 07/23/2017 12:00 AM HC PRO PHONE CALL 5-10 MIN R jose manuelwed 11/24/2010 12:00 AM URINALYSIS NONAUTO W/O SCOPE Reviewed 09/06/2017 12:00 AM TRANS CARE MGMT 14 DAY DISCH R jose manuelwed 09/06/2017 12:00 AM UNLISTED PREVENTIVE SERVICE Re viewed 12/11/2017 12:[address] THORAX W/DYE Reviewed 05/20/2010 12:00 AM TRANSFERASE (AST) (SGOT) Rev iewed 11/24/2010 12:00 AM METABOLIC PANEL TOTAL CA Revi ewed 11/24/2010 12:00 AM LIPID PANEL Reviewed 11/24/2010 12:00 AM HEPATIC FUNCTION PANEL Review ed 11/24/2010 12:00 AM COMPLETE CBC W/AUTO DIFF WBC Reviewed 10/09/2017 12:00 AM METABOLIC PANEL TOTAL CA Revi ewed 10/09/2017 12:00 AM ASSAY OF FERRITIN Reviewed 10/09/2017 12:00 AM COMPLETE CBC W/AUTO DIFF WBC Reviewed 10/09/2017 12:00 AM ASSAY OF IRON Reviewed 10/09/2017 12:00 AM Annual Wellness Visit (AWV), initial; includes PPPS Reviewed 10/09/2017 12:00 AM ADVNCD CARE PLAN 30 MIN Revie wed 12/12/2017 12:00 AM ASSAY OF UREA NITROGEN Return ed 12/12/2017 12:00 AM ASSAY OF CREATININE Returned 02/06/2018 12:00 AM Screening mammogram* Reviewed 04/13/2018 12:00 AM ASSAY THYROID STIM HORMONE Re viewed 04/13/2018 12:00 AM URINALYSIS AUTO W/SCOPE Revie wed 04/13/2018 12:00 AM VITAMIN D 25 HYDROXY Reviewed 04/13/2018 12:00 AM ASSAY OF IRON Reviewed 04/13/2018 12:00 AM COMPREHEN METABOLIC PANEL Rev iewed 04/13/2018 12:00 AM LIPID PANEL Reviewed 04/13/2018 12:00 AM ASSAY OF FERRITIN Reviewed 04/13/2018 12:00 AM COMPLETE CBC W/AUTO DIFF WBC Reviewed 06/03/2011 12:00 AM METABOLIC PANEL TOTAL CA Revi ewed 06/03/2011 12:00 AM COMPLETE CBC W/AUTO DIFF WBC Reviewed 06/03/2011 12:00 AM ALANINE AMINO (ALT) (SGPT) Re viewed 07/28/2011 12:00 AM METABOLIC PANEL TOTAL CA Rev iewed 07/28/2011 12:00 AM ASSAY THYROID STIM HORMONE R eviewed 07/28/2011 12:00 AM ASSAY OF FREE THYROXINE Revi ewed 07/28/2011 12:00 AM FREE ASSAY (FT-3) Reviewed 10/15/2018 12:00 AM METABOLIC PANEL TOTAL CA Revi ewed 10/15/2018 12:00 AM COMPLETE CBC W/AUTO DIFF WBC Reviewed 10/15/2018 12:00 AM ASSAY OF BLOOD LIPOPROTEIN Re viewed 10/15/2018 12:00 AM ASSAY OF TRIGLYCERIDES Review ed 10/23/2018 12:00 AM Decadron 4 Mg Reviewed 12/19/2018 12:00 AM SYMPTOM MGMNT PLAN CARE DOCD Reviewed 12/19/2018 12:00 AM HC PRO PHONE CALL 5-10 MIN Re viewed 02/07/2008 12:00 AM ASSAY THYROID STIM HORMONE Re viewed 01/09/2009 12:00 AM URINALYSIS NONAUTO W/O SCOPE Reviewed 05/10/2019 12:00 AM ASSAY THYROID STIM HORMONE R eviewed 05/10/2019 12:00 AM VITAMIN D 25 HYDROXY Reviewe d 05/10/2019 12:00 AM COMPLETE CBC W/AUTO DIFF WBC Reviewed 05/10/2019 12:00 AM ASSAY OF IRON Reviewed 05/10/2019 12:00 AM LIPID PANEL Reviewed 05/10/2019 12:00 AM URINALYSIS AUTO W/SCOPE Revi ewed 05/10/2019 12:00 AM ASSAY OF FERRITIN Reviewed 05/10/2019 12:00 AM COMPREHEN METABOLIC PANEL Re viewed 05/10/2019 12:00 AM DXA BONE DENSITY AXIAL Revie wed 05/15/2019 12:00 AM Shared decision aid - Osteop orosis ONLY. Reviewed 05/15/2019 11:23 AM NCAMA Flu vaccine and admin Reviewed 05/15/2019 11:23 AM NCAMA Flu vaccine and admin Reviewed 05/15/2019 11:23 AM NCAMA Flucelvax Quadrivalent Reviewed 11/10/2009 12:00 AM METABOLIC PANEL TOTAL CA Revi ewed 11/10/2009 12:00 AM LIPID PANEL Reviewed 11/10/2009 12:00 AM HEPATIC FUNCTION PANEL Review ed 11/10/2009 12:00 AM COMPLETE CBC W/AUTO DIFF WBC Reviewed 11/10/2009 12:00 AM URINALYSIS NONAUTO W/O SCOPE Reviewed 09/12/2019 12:00 AM COMPREHEN METABOLIC PANEL Rev iewed 09/12/2019 12:00 AM COMPLETE CBC W/AUTO DIFF WBC Reviewed 06/15/2012 12:00 AM METABOLIC PANEL TOTAL CA Rev iewed 06/15/2012 12:00 AM ALANINE AMINO (ALT) (SGPT) R eviewed 06/15/2012 12:00 AM TRANSFERASE (AST) (SGOT) Rev iewed 06/15/2012 12:00 AM COMPLETE CBC W/AUTO DIFF WBC Reviewed 06/15/2012 12:00 AM ASSAY BLD/SERUM CHOLESTEROL Reviewed 05/15/2020 12:00 AM COMPLETE CBC W/AUTO DIFF WBC Reviewed 05/15/2020 12:00 AM COMPREHEN METABOLIC PANEL Re viewed 05/15/2020 12:00 AM ASSAY THYROID STIM HORMONE R eviewed 05/15/2020 12:00 AM VITAMIN D 25 HYDROXY Reviewe d 05/15/2020 12:00 AM ASSAY OF FERRITIN Reviewed 05/15/2020 12:00 AM LIPID PANEL Reviewed 05/15/2020 12:00 AM URINALYSIS AUTO W/SCOPE Revi ewed 05/15/2020 12:00 AM ASSAY OF IRON Reviewed 05/19/2020 1:56 PM FALL PLAN OF CARE DOCD Review ed 05/19/2020 12:00 AM NCAMA Flu vaccine and admin Reviewed 11/25/2020 12:00 AM COMPLETE CBC W/AUTO DIFF WBC Reviewed 11/25/2020 12:00 AM METABOLIC PANEL TOTAL CA Revi ewed 11/25/2020 9:42 AM FALL PLAN OF CARE DOCD Reviewe d 11/25/2020 12:00 AM Annual Wellness Visit, subseq uent Reviewed 12/02/2020 12:00 AM TTE W/DOPPLER COMPLETE Reviewe d 12/13/2011 12:00 AM LIPID PANEL Reviewed 12/13/2011 12:00 AM HEPATIC FUNCTION PANEL Review ed 12/13/2011 12:00 AM ASSAY THYROID STIM HORMONE Re viewed 12/13/2011 12:00 AM METABOLIC PANEL TOTAL CA Revi ewed 12/13/2011 12:00 AM COMPLETE CBC W/AUTO DIFF WBC Reviewed 12/13/2011 12:00 AM URINALYSIS NONAUTO W/O SCOPE Reviewed 05/27/2021 12:00 AM COMPREHEN METABOLIC PANEL Re viewed 05/27/2021 12:00 AM VITAMIN D 25 HYDROXY Reviewe d 05/27/2021 12:00 AM COMPLETE CBC W/AUTO DIFF WBC Reviewed 05/27/2021 12:00 AM ASSAY THYROID STIM HORMONE R eviewed 05/27/2021 12:00 AM URINALYSIS AUTO W/SCOPE Revi ewed 05/27/2021 12:00 AM LIPID PANEL Reviewed 05/31/2021 11:17 AM NCAMA Flu vaccine and admin R eviewed 06/03/2011 12:00 AM ASSAY BLD/SERUM CHOLESTEROL R eviewed 06/03/2011 12:00 AM TRANSFERASE (AST) (SGOT) Revi ewed 06/20/2013 12:00 AM TRANSFERASE (AST) (SGOT) Rev iewed 06/20/2013 12:00 AM METABOLIC PANEL TOTAL CA Rev iewed 11/29/2021 12:00 AM METABOLIC PANEL TOTAL CA Revie wed 11/29/2021 12:00 AM ASSAY OF TRIGLYCERIDES Reviewe d 11/29/2021 12:00 AM ALANINE AMINO (ALT) (SGPT) Rev iewed 11/29/2021 12:00 AM ASSAY OF BLOOD LIPOPROTEIN Rev iewed 12/02/2021 10:17 AM FALL PLAN OF CARE DOCD Reviewe d 05/25/2022 12:00 AM NCAMA Flu vaccine and admin Reviewed 06/06/2022 12:00 AM URINALYSIS AUTO W/SCOPE Revie wed 06/06/2022 12:00 AM COMPREHEN METABOLIC PANEL Rev iewed 06/06/2022 12:00 AM VITAMIN D 25 HYDROXY Reviewed 06/06/2022 12:00 AM LIPID PANEL Reviewed 06/06/2022 12:00 AM ASSAY THYROID STIM HORMONE Re viewed 06/06/2022 12:00 AM COMPLETE CBC W/AUTO DIFF WBC Reviewed 06/09/2022 12:00 AM DXA BONE DENSITY AXIAL Revie wed 01/17/2022 12:00 AM Screening annual mammography Reviewed 06/09/2022 12:00 AM ADVNCD CARE PLAN 30 MIN Revi ewed 06/09/2022 12:00 AM Annual Wellness Visit, musa cohen Reviewed 06/09/2022 11:43 AM FALL PLAN OF CARE DOCD Revie wed 06/20/2013 12:00 AM ASSAY BLD/SERUM CHOLESTEROL Reviewed 06/20/2013 12:00 AM ALANINE AMINO (ALT) (SGPT) R eviewed 12/07/2022 12:00 AM COMPREHEN METABOLIC PANEL Rev iewed 12/07/2022 12:00 AM COMPLETE CBC W/AUTO DIFF WBC Reviewed 12/12/2022 10:00 AM FALL PLAN OF CARE DOCD Review ed 12/12/2022 12:00 AM PATIENT EDUCATION MATERIALS R eviewed 01/27/2023 12:00 AM Screening mammogram* Reviewed 01/28/2024 12:00 AM Screening annual mammography Reviewed 02/02/2023 12:00 AM X-RAY EXAM OF HIP Reviewed 12/24/2013 12:00 AM HEPATIC FUNCTION PANEL Review ed 12/24/2013 12:00 AM ASSAY THYROID STIM HORMONE Re viewed 12/24/2013 12:00 AM COMPLETE CBC W/AUTO DIFF WBC Reviewed 12/24/2013 12:00 AM METABOLIC PANEL TOTAL CA Revi ewed 10/03/2013 12:00 AM CHEST X-RAY 2VW FRONTAL&LATL R eviewed 11/26/2009 12:00 AM Prescriptions were all PRINTE D or FAXED. Reviewed 06/14/2023 12:00 AM ALANINE AMINO (ALT) (SGPT) R eviewed 06/14/2023 12:00 AM LIPID PANEL Reviewed 06/14/2023 12:00 AM ASSAY THYROID STIM HORMONE R eviewed 06/14/2023 12:00 AM ASSAY OF IRON Reviewed 06/14/2023 12:00 AM COMPLETE CBC W/AUTO DIFF WBC Reviewed 06/14/2023 12:00 AM METABOLIC PANEL TOTAL CA Rev iewed 06/14/2023 10:03 AM FALL PLAN OF CARE DOCD Revie wed 06/14/2023 12:00 AM Annual Wellness Visit, musa cohen Reviewed 06/20/2023 12:00 AM PATIENT EDUCATION MATERIALS Reviewed 07/28/2011 12:00 AM ASSAY OF MAGNESIUM Reviewed 09/27/2013 12:00 AM Celestone 7 Mg Reviewed 09/27/2013 12:00 AM Celestone 7 Mg (2nd cc Given) Reviewed 12/19/2023 12:00 AM URINALYSIS AUTO W/SCOPE Revie wed 12/19/2023 12:00 AM COMPLETE CBC W/AUTO DIFF WBC Reviewed 12/19/2023 12:00 AM LIPID PANEL Reviewed 12/19/2023 12:00 AM ASSAY THYROID STIM HORMONE Re viewed 12/19/2023 12:00 AM COMPREHEN METABOLIC PANEL Rev iewed 12/19/2023 12:00 AM VITAMIN D 25 HYDROXY Reviewed 12/26/2023 9:54 AM FALL PLAN OF CARE DOCD Reviewe d 12/26/2023 12:00 AM PATIENT EDUCATION MATERIALS R [email or web address] 12/17/2012 12:00 AM HEPATIC FUNCTION PANEL Review ed 12/17/2012 12:00 AM ASSAY THYROID STIM HORMONE Re viewed 12/17/2012 12:00 AM URINALYSIS AUTO W/SCOPE Revie wed 12/17/2012 12:00 AM COMPLETE CBC W/AUTO DIFF WBC Reviewed 12/17/2012 12:00 AM METABOLIC PANEL TOTAL CA Revi ewed 02/28/2024 12:00 AM PATIENT EDUCATION MATERIALS R eviewed 12/24/2013 12:00 AM URINALYSIS AUTO W/SCOPE Revie wed 12/24/2013 12:00 AM VITAMIN D 25 HYDROXY Reviewed 08/06/2010 12:00 AM ASSAY OF MAGNESIUM Reviewed 12/24/2013 12:00 AM LIPID PANEL Reviewed 12/17/2012 12:00 AM LIPID PANEL Reviewed 03/09/2009 12:00 AM PROTHROMBIN TIME Reviewed 01/08/2009 12:00 AM PROTHROMBIN TIME Reviewed 01/09/2009 12:00 AM METABOLIC PANEL TOTAL CA Revi ewed 01/09/2009 12:00 AM LIPID PANEL Reviewed 01/09/2009 12:00 AM HEPATIC FUNCTION PANEL Review ed 01/09/2009 12:00 AM ASSAY THYROID STIM HORMONE Re viewed 01/09/2009 12:00 AM COMPLETE CBC W/AUTO DIFF WBC Reviewed 01/09/2009 12:00 AM ASSAY OF DIGOXIN TOTAL Review ed Results Summary Date and Description Results 02/07/2008 11:01 AM PLT 267.0 x10E3/uLMI D % 8.10 %HGB 11.30 g/dLMCV 80.40 fLK 4.20 mmol/LGFR 91.3GFR 91.3PROTIME 31.80 secsRDW 14.90 %_GRAN 3.1INR 2.3LYMPH % 26.80 %_MID 0.4_INR CALC. 2.2MCH 26.70 pgMCHC 33.20 g/dL_LYMPH 1.3_MPV 9.2CA 9.70 mg/dLCO2 29.60 mmol/LGLU 97.0 mg/dLBUN 14.0 mg/dLHCT 34.0 %CL 98.30 mmol/LCL 98.30 mmol/WELCOME HOSTESS 136.60 mmol/LWBC 4.80 x10E3/uLGRAN % 65.10 %RBC 4.230 x10E6/uLCREAT 0.70 mg/dLTSH 2.70 mIU/L 02/07/2008 11:16 AM DIGOXIN 1.10 ng/mL 01/09/2009 8:13 AM GFR 91.0GFR 91.0HCT 33.30 %BUN 14.0 mg/dLMID % 7.40 %_MID 0.5BLOOD TRACEALP 72.0 U/LLDL 115.30 mg/dLEPI/HPF 0-1MCH 27.20 pgCLARITY CLEARPLT 239.0 x10E3/uLMUCOUS 1+RDW 14.30 %PH 7.5PH 7.5LEUKOCYTES NEGATIVETRICHOMONOS NONE_MPV 8.7TBILI 0.80 mg/dLCA 9.80 mg/dLAST 17.0 U/LBILIRUBIN NEGATIVEALB 4.30 g/dLALB 4.30 g/dLK 4.30 mmol/LUROBILINOGEN NEGATIVEWBC 6.20 x10E3/uLALBUMIN TRACEALBUMIN TRACECREAT 0.70 mg/dLSPEC GRAVITY 1.015NA 141.10 mmol/LGRAN % 71.90 %HDL 29.90 mg/dLBACTERIA RARETSH 3.10 mIU/LDBILI 0.30 mg/dLGLU 101.0 mg/dLRBC/HPF 0-3TP 7.40 g/dLNITRITES NEGATIVEWBC/HPF NONE_GRAN 4.5CHOL 172.0 mg/dLCHOL 172.0 mg/dLRBC 4.170 x10E6/uLCARDIAC RISK 5.8_LYMPH 1.3GLUCOSE NEGATIVETRIG 134.0 mg/dLKETONES NEGATIVEHGB 11.30 g/dLLYMPH % 20.60 %CL 98.90 mmol/LCL 98.90 mmol/LCOLOR YELLOWCOLOR YELLOWMCV 79.90 fLALT 17.0 U/LCO2 26.60 mmol/LMCHC 34.0 g/dLVLDL 26.80 mg/dLVLDL 26.80 mg/dL 01/09/2009 8:27 AM DIGOXIN 1.0 ng/mL 05/08/2009 8:05 AM GFR 77.8GFR 77.8LEUK OCYTES NEGATIVEMUCOUS 2+CARDIAC RISK 5.1KETONES NEGATIVEHGB 12.0 g/dLK 4.20 mmol/LCL 99.60 mmol/LCL 99.60 mmol/LBACTERIA 1+CLARITY CLEARALB 4.10 g/dLALB 4.10 g/dLMCH 26.10 pgHDL 33.40 mg/dLVLDL 21.80 mg/dLVLDL 21.80 mg/dLBLOOD NEGATIVEGRAN % 69.50 %CA 9.40 mg/dLTRIG 109.0 mg/dLWBC/HPF 0-3ALT 24.0 U/LSPEC GRAVITY 1.010TSH 3.70 mIU/LPLT 267.0 x10E3/uLCREAT 0.80 mg/dLALP 67.0 U/L_LYMPH 1.5ALBUMIN NEGATIVEALBUMIN NEGATIVETP 6.80 g/dL_MPV 8.9DBILI 0.20 mg/dLGLU 100.0 mg/dLTBILI 0.80 mg/dLNITRITES NEGATIVERBC/HPF 0-1BUN 13.0 mg/dLLYMPH % 25.10 %MCHC 32.40 g/dL_MID 0.3PH 7.5PH 7.5CHOL 169.0 mg/dLCHOL 169.0 mg/dLWBC 6.10 x10E3/uLRBC 4.590 x10E6/uLUROBILINOGEN NEGATIVERDW 15.20 %AST 18.0 U/LGLUCOSE NEGATIVEEPI/HPF 0-1BILIRUBIN NEGATIVETRICHOMONOS NONELDL 113.80 mg/dLHCT 37.0 %MCV 80.50 fLCOLOR YELLOWCOLOR YELLOWMID % 5.40 %NA 137.30 mmol/LCO2 26.10 mmol/L_GRAN 4.2 05/08/2009 8:21 AM DIGOXIN 0.50 ng/mL 11/10/2009 8:00 AM WBC 6.50 x10E3/uLGR % 80.40 %LYM % 18.40 %MID % 1.20 %RBC 4.510 x10E6/uLHGB 12.0 g/dLHCT 37.20 %MCV 82.60 fLMCH 26.60 pgMCHC 32.30 g/dLRDW 15.80 %PLT 230.0 x10E3/uLGRAN # 5.2LYM # 1.2MID # 0.1MPV 7.7COLOR YELLOWCOLOR YELLOWCLARITY CLEARSPEC GRAVITY 1.015PH NEGATIVEPH NEGATIVEALBUMIN NEGATIVEALBUMIN NEGATIVEGLUCOSE NEGATIVEKETONES NEGATIVEBILIRUBIN NEGATIVEBLOOD NEGATIVENITRITES NEGATIVEUROBILINOGEN NEGATIVELEUKOCYTES NEGATIVEGLU 100.0 mg/dLBUN 14.0 mg/dLCREAT 0.70 mg/dLCA 9.80 mg/dLNA 137.20 mmol/LK 4.20 mmol/LCL 98.10 mmol/LCL 98.10 mmol/LCO2 29.0 mmol/LALB 4.60 g/dLALB 4.60 g/dLALP 69.0 U/LAST 18.0 U/LALT 20.0 U/LTBILI 0.80 mg/dLDBILI 0.30 mg/dLTP 7.30 g/dLCHOL 166.0 mg/dLCHOL 166.0 mg/dLTRIG 118.0 mg/dLHDL 31.80 mg/dLVLDL 23.60 mg/dLVLDL 23.60 mg/dLLDL 110.60 mg/dLCARDIAC RISK 5.2GFR 90.7GFR 90.7 02/04/2010 10:12 AM WBC 5.30 x10E3/uLGR % 72.80 %LYM % 19.0 %MID % 8.20 %RBC 3.930 x10E6/uLHGB 11.10 g/dLHCT 33.70 %MCV 85.60 fLH 28.30 [facility]HC 33.[facility] g/dLRDW 15.60 %PLT 304.0 x10E3/uLGRAN # 3.9LYM # 1.0MID # 0.4MPV 6.8 02/11/2010 9:50 AM GLU 97.0 mg/dLBUN 13 .0 mg/dLCREAT 0.60 mg/dLCA 9.70 mg/dLNA 136.60 mmol/LK 4.0 mmol/LCL 99.30 mmol/LCL 99.30 mmol/LCO2 32.60 mmol/LGFR 108.4GFR 108.4 05/20/2010 9:45 AM WBC 5.0 x10E3/uLGR % 68.80 %LYM % 22.20 %MID % 9.0 %RBC 4.20 x10E6/uLHGB 11.60 g/dLHCT 34.60 %MCV 82.40 fLH 27.50 pgHC 33.40 g/dLRDW 16.40 %PLT 232.0 x10E3/uLGRAN # 3.4LYM # 1.1MID # 0.4MPV 7.2GLU 95.0 mg/dLBUN 11.0 mg/dLCREAT 0.60 mg/dLCA 9.30 mg/dLNA 138.20 mmol/LK 3.90 mmol/LCL 98.40 mmol/LCL 98.40 mmol/LCO2 30.70 mmol/LAST 22.0 U/LALT 23.0 U/LCHOL 190.0 mg/dLCHOL 190.0 mg/dLGFR 108.0GFR 108.0 08/06/2010 8:31 AM MAGNESIUM 2.0 mg/Garret 3, FREE 3.0 pg/mL 08/06/2010 8:40 AM GLU 95.0 mg/dLBUN 14 .0 mg/dLCREAT 0.70 mg/dLCA 9.90 mg/dLNA 139.90 mmol/LK 4.10 mmol/LCL 101.50 mmol/LCL 101.50 mmol/LCO2 29.20 mmol/LGFR 90.4GFR 90.4TSH 1.90 mIU/LFREE T4 0.90 ng/dL 11/24/2010 7:56 AM WBC 4.40 x10E3/uLGR % 67.10 %LYM % 23.90 %MID % 9.0 %RBC 4.280 x10E6/uLHGB 11.90 g/dLHCT 36.0 %MCV 84.10 [facility] 27.70 pgHC 33.0 g/dLRDW 15.30 %PLT 231.0 x10E3/uLGRAN # 3.0LYM # 1.1MID # 0.4MPV 8.1COLOR YELLOWCOLOR YELLOWCLARITY CLEARSPEC GRAVITY 1.015PH 7.0PH 7.0ALBUMIN NEGATIVEALBUMIN NEGATIVEGLUCOSE NEGATIVEKETONES NEGATIVEBILIRUBIN NEGATIVEBLOOD TRACENITRITES NEGATIVEUROBILINOGEN NEGATIVELEUKOCYTES TRACEWBC/HPF 0-3RBC/HPF 0-2EPI/HPF 3-6BACTERIA 1+MUCOUS RARECASTS/LPF NONECRYSTALS NONEYEAST NONETRICHOMONOS NONEGLU 97.0 mg/dLBUN 13.0 mg/dLCREAT 0.70 mg/dLCA 9.0 mg/dLNA 140.0 mmol/LK 4.10 mmol/LCL 101.90 mmol/LCL 101.90 mmol/LCO2 28.0 mmol/LALB 4.30 g/dLALB 4.30 g/dLALP 68.0 U/LAST 22.0 U/LALT 25.0 U/LTBILI 0.70 mg/dLDBILI 0.20 mg/dLTP 7.20 g/dLCHOL 187.0 mg/dLCHOL 187.0 mg/dLTRIG 94.0 mg/dLHDL 49.0 mg/dLVLDL 18.80 mg/dLVLDL 18.80 mg/dLLDL 119.20 mg/Garret CHOL/HDL 3.8GFR 90.4GFR 90.4 06/03/2011 8:39 AM WBC 4.70 x10E3/uLGR % 71.80 %LYM % 20.90 %MID % 7.30 %RBC 4.210 x10E6/uLHGB 12.40 g/dLHCT 35.70 %MCV 84.70 fLH 29.40 pgHC 34.70 g/dLRDW 14.20 %PLT 252.0 x10E3/uLGRAN # 3.4LYM # 1.0MID # 0.3MPV 8.4GLU 95.0 mg/dLBUN 9.0 mg/dLCREAT 0.70 mg/dLCA 9.50 mg/dLNA 139.10 mmol/LK 4.40 mmol/LCL 100.80 mmol/LCL 100.80 mmol/LCO2 31.0 mmol/LAST 23.0 U/LALT 17.0 U/LCHOL 198.0 mg/dLCHOL 198.0 mg/dLGFR 90.1GFR 90.1 07/28/2011 7:36 AM MAGNESIUM 2.10 mg/dL T3, FREE 3.30 pg/mLGLU 95.0 mg/dLBUN 13.0 mg/dLCREAT 0.60 mg/dLCA 9.60 mg/dLNA 138.0 mmol/LK 4.10 mmol/LCL 99.50 mmol/LCL 99.50 mmol/LCO2 31.10 mmol/LGFR 107.7GFR 107.7TSH 2.670 mIU/LFREE T4 0.80 ng/dL 12/13/2011 8:35 AM WBC 4.70 x10E3/uLGR % 73.0 %LYM % 20.50 %MID % 6.50 %RBC 4.140 x10E6/uLHGB 11.60 g/dLHCT 34.60 %MCV 83.70 fLH 28.10 pgHC 33.50 g/dLRDW 14.90 %PLT 218.0 x10E3/uLGRAN # 3.4LYM # 1.0MID # 0.3MPV 7.9COLOR YELLOWCOLOR YELLOWCLARITY CLEARSPEC GRAVITY 1.015PH 7.0PH 7.0ALBUMIN NEGATIVEALBUMIN NEGATIVEGLUCOSE NEGATIVEKETONES NEGATIVEBILIRUBIN NEGATIVEBLOOD NEGATIVENITRITES NEGATIVEUROBILINOGEN NEGATIVELEUKOCYTES NEGATIVEGLU 100.0 mg/dLBUN 10.0 mg/dLCREAT 0.60 mg/dLCA 9.80 mg/dLNA 139.90 mmol/LK 4.20 mmol/LCL 103.90 mmol/LCL 103.90 mmol/LCO2 30.20 mmol/LALB 4.50 g/dLALB 4.50 g/dLALP 70.0 U/LAST 20.0 U/LALT 22.0 U/LTBILI 0.70 mg/dLDBILI 0.20 mg/dLTP 7.10 g/dLCHOL 193.0 mg/dLCHOL 193.0 mg/dLTRIG 99.0 mg/dLHDL 53.0 mg/dLVLDL 19.80 mg/dLVLDL 19.80 mg/dLLDL 120.20 mg/Garret CHOL/HDL 3.6GFR 107.7GFR 107.7TSH 2.110 mIU/L 06/15/2012 8:02 AM WBC 5.20 x10E3/uLGR % 75.0 %LYM % 19.40 %MID % 5.60 %RBC 4.010 x10E6/uLHGB 11.20 g/dLHCT 33.60 %MCV 83.90 fLMCH 28.0 pgMCHC 33.40 g/dLRDW 14.70 %PLT 213.0 x10E3/uLGRAN # 3.9LYM # 1.0MID # 0.3MPV 8.0GLU 101.0 mg/dLBUN 13.0 mg/dLCREAT 0.70 mg/dLCA 9.50 mg/dLNA 138.60 mmol/LK 4.10 mmol/LCL 100.30 mmol/LCL 100.30 mmol/LCO2 31.60 mmol/LAST 18.0 U/LALT 20.0 U/LCHOL 181.0 mg/dLCHOL 181.0 mg/dL 12/17/2012 7:49 AM WBC 4.60 x10E3/uLGR % 70.0 %LYM % 22.0 %MID % 8.0 %RBC 4.060 x10E6/uLHGB 11.0 g/dLHCT 34.0 %MCV 83.70 fLMCH 27.20 pgMCHC 32.40 g/dLRDW 15.60 %PLT 245.0 x10E3/uLGRAN # 3.2LYM # 1.0MID # 0.4MPV 6.8COLOR YELLOWCOLOR YELLOWCLARITY CLEARSPEC GRAVITY 1.015PH 7.0PH 7.0ALBUMIN NEGATIVEALBUMIN NEGATIVEGLUCOSE NEGATIVEKETONES NEGATIVEBILIRUBIN NEGATIVEBLOOD TRACENITRITES NEGATIVEUROBILINOGEN NEGATIVELEUKOCYTES NEGATIVEWBC/HPF NONE SEENRBC/HPF 0-1EPI/HPF NONE SEENBACTERIA RAREMUCOUS NONE SEENCASTS/LPF NONE SEENCRYSTALS NONE SEENYEAST NONE SEENTRICHOMONOS NONE SEENGLU 97.0 mg/dLBUN 14.0 mg/dLCREAT 0.70 mg/dLCA 9.70 mg/dLNA 138.60 mmol/LK 3.90 mmol/LCL 102.40 mmol/LCL 102.40 mmol/LCO2 32.80 mmol/LALB 4.40 g/dLALB 4.40 g/dLALP 53.0 U/LAST 12.0 U/LALT 13.0 U/LTBILI 0.70 mg/dLDBILI 0.20 mg/dLTP 7.0 g/dLCHOL 199.0 mg/dLCHOL 199.0 mg/dLTRIG 90.0 mg/dLHDL 52.0 mg/dLVLDL 18.0 mg/dLVLDL 18.0 mg/dLLDL 129.0 mg/Garret CHOL/HDL 3.8TSH 1.990 mIU/L 06/20/2013 8:12 AM GLU 96.0 mg/dLBUN 13 .0 mg/dLCREAT 0.70 mg/dLCA 9.60 mg/dLNA 138.60 mmol/LK 4.10 mmol/LCL 101.90 mmol/LCL 101.90 mmol/LCO2 30.90 mmol/LALT 10.0 U/LAST 13.0 U/LCHOL 185.0 mg/dLCHOL 185.0 mg/dL 12/24/2013 12:00 AM VITAMIN D, 25-OH, TO AYAKA 43.0 ng/mLVITAMIN D, 25-OH, D3 43.0 ng/mLVITAMIN D, 25-OH, D2 <4 ng/mL 12/24/2013 9:19 AM WBC 5.90 x10E3/uLGR % 72.70 %LYM % 19.60 %MID % 7.70 %RBC 4.280 x10E6/uLHGB 11.10 g/dLHCT 34.70 %MCV 81.20 fLMCH 26.10 pgMCHC 32.10 g/dLRDW 16.10 %PLT 256.0 x10E3/uLGRAN # 4.3LYM # 1.2MID # 0.5MPV 7.3COLOR YELLOWCOLOR YELLOWCLARITY CLEARSPEC GRAVITY 1.015PH 7.5PH 7.5ALBUMIN NEGATIVEALBUMIN NEGATIVEGLUCOSE NEGATIVEKETONES NEGATIVEBILIRUBIN NEGATIVEBLOOD TRACENITRITES NEGATIVEUROBILINOGEN NEGATIVELEUKOCYTES NEGATIVEWBC/HPF 0-1RBC/HPF 0-3EPI/HPF 0-1BACTERIA RAREMUCOUS RARECASTS/LPF NONE SEENCRYSTALS NONE SEENYEAST NONE SEENTRICHOMONOS NONE SEENGLU 99.0 mg/dLBUN 16.0 mg/dLCREAT 0.70 mg/dLCA 10.20 mg/dLNA 138.60 mmol/LK 4.30 mmol/LCL 101.10 mmol/LCL 101.10 mmol/LCO2 33.10 mmol/LALB 4.50 g/dLALB 4.50 g/dLALP 64.0 U/LAST 16.0 U/LALT 10.0 U/LTBILI 0.70 mg/dLDBILI 0.30 mg/dLTP 7.50 g/dLCHOL 204.0 mg/dLCHOL 204.0 mg/dLTRIG 69.0 mg/dLHDL 62.0 mg/dLVLDL 13.80 mg/dLVLDL 13.80 mg/dLLDL 128.20 mg/Garret CHOL/HDL 3.3TSH 2.110 mIU/L 04/02/2015 8:12 AM WBC 5.40 x10E3/uLGR % 70.10 %LYM % 20.30 %MID % 9.60 %RBC 4.350 x10E6/uLHGB 11.40 g/dLHCT 36.20 %MCV 83.20 fLMCH 26.10 pgMCHC 31.40 g/dLRDW 16.80 %PLT 321.0 x10E3/uLGRAN # 3.8LYM # 1.1MID # 0.5MPV 7.1COLOR YELLOWCOLOR YELLOWCLARITY CLEARSPEC GRAVITY 1.015PH 7.0PH 7.0ALBUMIN NEGATIVEALBUMIN NEGATIVEGLUCOSE NEGATIVEKETONES NEGATIVEBILIRUBIN NEGATIVEBLOOD NEGATIVENITRITES NEGATIVEUROBILINOGEN NEGATIVELEUKOCYTES NEGATIVEGLU 106.0 mg/dLBUN 11.0 mg/dLCREAT 0.60 mg/dLCA 9.80 mg/dLNA 138.60 mmol/LK 3.80 mmol/LCL 99.90 mmol/LCL 99.90 mmol/LCO2 31.30 mmol/LALB 4.40 g/dLALB 4.40 g/dLALP 68.0 U/LAST 15.0 U/LALT 8.0 U/LTBILI 0.60 mg/dLDBILI 0.30 mg/dLTP 7.60 g/dLCHOL 201.0 mg/dLCHOL 201.0 mg/dLTRIG 89.0 mg/dLHDL 57.0 mg/dLVLDL 17.80 mg/dLVLDL 17.80 mg/dLLDL 126.20 mg/Garret CHOL/HDL 3.5TSH 2.350 mIU/LVIT D 32.20 ng/mL 04/06/2016 7:39 AM WBC 5.30 x10E3/uLGR % 73.60 %LYM % 18.10 %MID % 8.30 %RBC 3.780 x10E6/uLHGB 10.10 g/dLHCT 30.40 %MCV 80.30 fLMCH 26.60 pgMCHC 33.10 g/dLRDW 16.30 %PLT 213.0 x10E3/uLGRAN # 3.9LYM # 1.0MID # 0.4MPV 7.0COLOR YELLOWCOLOR YELLOWCLARITY CLEARSPEC GRAVITY 1.020PH 6.0PH 6.0ALBUMIN NEGATIVEALBUMIN NEGATIVEGLUCOSE NEGATIVEKETONES NEGATIVEBILIRUBIN NEGATIVEBLOOD NEGATIVENITRITES NEGATIVEUROBILINOGEN NEGATIVELEUKOCYTES NEGATIVEGLU 111.0 mg/dLBUN 14.0 mg/dLCREAT 0.50 mg/dLALB 4.40 g/dLALB 4.40 g/dLALP 60.0 U/LAST 15.0 U/LALT 13.0 U/LTBILI 0.70 mg/dLCA 9.70 mg/dLTP 7.50 g/dLNA 137.0 mmol/LK 4.50 mmol/LCL 100.80 mmol/LCL 100.80 mmol/LCO2 32.0 mmol/LCHOL 198.0 mg/dLCHOL 198.0 mg/dLTRIG 62.0 mg/dLHDL 60.0 mg/dLVLDL 12.40 mg/dLVLDL 12.40 mg/dLLDL 125.60 mg/Garret CHOL/HDL 3.3GFR 130.8GFR 130.8TSH 1.50 mIU/LVIT D 39.80 ng/mL 10/05/2016 1:38 PM Risk Assessment for Falls Performed 10/14/2016 9:01 AM GLU 103.0 mg/dLBUN 9 .0 mg/dLCREAT 0.60 mg/dLCA 9.30 mg/dLNA 135.40 mmol/LK 4.50 mmol/LCL 101.80 mmol/LCL 101.80 mmol/LCO2 30.90 mmol/LGFR 106.0GFR 106.0 10/18/2016 1:36 PM Risk Assessment for Falls Performed 10/27/2016 8:48 AM GLU 104.0 mg/dLBUN 1 2.0 mg/dLCREAT 0.60 mg/dLCA 9.70 mg/dLNA 134.90 mmol/LK 4.70 mmol/LCL 101.60 mmol/LCL 101.60 mmol/LCO2 31.40 mmol/LGFR 106.0GFR 106.0 11/04/2016 12:06 PM WBC 7.60 x10E3/uLGR % 76.0 %LYM % 14.20 %MID % 9.80 %RBC 4.070 x10E6/uLHGB 10.60 g/dLHCT 33.10 %MCV 81.30 fLMCH 26.20 pgHC 32.20 g/dLRDW 16.70 %PLT 263.0 x10E3/uLGRAN # 5.8LYM # 1.1MID # 0.7MPV 7.4GLU 102.0 mg/dLBUN 13.0 mg/dLCREAT 0.60 mg/dLCA 9.50 mg/dLNA 138.20 mmol/LK 4.60 mmol/LCL 103.10 mmol/LCL 103.10 mmol/LCO2 31.10 mmol/LGFR 106.0GFR 106.0TSH 1.910 mIU/LMAGNESIUM 1.90 mg/dL 11/14/2016 12:00 AM Mammogram Assessment Category benign 12/14/2016 9:52 AM GLU 104.0 mg/dLBUN 9 .0 mg/dLCREAT 0.80 mg/dLCA 9.60 mg/dLNA 136.60 mmol/LK 4.20 mmol/LCL 98.30 mmol/LCL 98.30 mmol/LCO2 27.40 mmol/LGFR 76.0GFR 76.0 02/28/2017 2:38 PM GLU 103.0 mg/dLBUN 1 5.0 mg/dLCREAT 0.70 mg/dLCA 9.80 mg/dLNA 138.0 mmol/LK 4.10 mmol/LCL 102.50 mmol/LCL 102.50 mmol/LCO2 28.90 mmol/LGFR 88.4GFR 88.4 02/28/2017 3:40 PM Colon Patient refuse s colonoscopy 03/24/2017 9:37 AM GLU 107.0 mg/dLBUN 1 0.0 mg/dLCREAT 0.60 mg/dLCA 9.50 mg/dLNA 135.10 mmol/LK 4.30 mmol/LCL 100.90 mmol/LCL 100.90 mmol/LCO2 30.40 mmol/LGFR 105.7GFR 105.7 04/10/2017 8:25 AM WBC 5.80 x10E3/uLGR % 73.70 %LYM % 16.80 %MID % 9.50 %RBC 4.290 x10E6/uLHGB 11.60 g/dLHCT 35.80 %MCV 83.50 fLMCH 27.0 pgMCHC 32.30 g/dLRDW 16.50 %PLT 260.0 x10E3/uLGRAN # 4.3LYM # 1.0MID # 0.6MPV 7.3COLOR YELLOWCOLOR YELLOWCLARITY CLEARSPEC GRAVITY 1.015PH 6.0PH 6.0ALBUMIN NEGATIVEALBUMIN NEGATIVEGLUCOSE NEGATIVEKETONES NEGATIVEBILIRUBIN NEGATIVEBLOOD NEGATIVENITRITES NEGATIVEUROBILINOGEN NEGATIVELEUKOCYTES NEGATIVEGLU 105.0 mg/dLBUN 12.0 mg/dLCREAT 0.70 mg/dLALB 4.30 g/dLALB 4.30 g/dLALP 70.0 U/LAST 12.0 U/LALT 11.0 U/LTBILI 0.80 mg/dLCA 10.0 mg/dLTP 7.40 g/dLNA 136.10 mmol/LK 4.30 mmol/LCL 99.0 mmol/LCL 99.0 mmol/LCO2 31.90 mmol/LCHOL 198.0 mg/dLCHOL 198.0 mg/dLTRIG 84.0 mg/dLHDL 62.0 mg/dLVLDL 16.80 mg/dLVLDL 16.80 mg/dLLDL 119.20 mg/Garret CHOL/HDL 3.2GFR 88.4GFR 88.4TSH 2.620 mIU/LVIT D 29.11 ng/mL 04/10/2017 9:56 AM Dexa osteopenia -1.6 05/24/2017 10:05 AM GLU 113.0 mg/dLBUN 1 7.0 mg/dLCREAT 1.0 mg/dLCA 9.50 mg/dLNA 133.80 mmol/LK 4.30 mmol/LCL 99.50 mmol/LCL 99.50 mmol/LCO2 31.70 mmol/LGFR 58.6GFR 58.6 06/06/2017 9:00 AM GLU 112.0 mg/dLBUN 1 2.0 mg/dLCREAT 0.70 mg/dLCA 9.50 mg/dLNA 135.90 mmol/LK 4.40 mmol/LCL 100.70 mmol/LCL 100.70 mmol/LCO2 30.50 mmol/LGFR 88.4GFR 88.4 07/11/2017 10:23 AM GLU 95.0 mg/dLBUN 15 .0 mg/dLCREAT 0.70 mg/dLCA 9.70 mg/dLNA 135.20 mmol/LK 4.60 mmol/LCL 98.10 mmol/LCL 98.10 mmol/LCO2 30.80 mmol/LGFR 88.4GFR 88.4 08/16/2017 12:00 AM Fall Risk Assessment With Handout Performed 08/16/2017 9:20 AM Fall Risk Assessment With Handout Performed 10/09/2017 9:27 AM WBC 5.30 x10E3/uLGR % 76.0 %LYM % 15.90 %MID % 8.10 %RBC 4.260 x10E6/uLHGB 11.70 g/dLHCT 34.40 %MCV 80.70 fLMCH 27.50 pgMCHC 34.0 g/dLRDW 17.80 %PLT 231.0 x10E3/uLGRAN # 4.0LYM # 0.8MID # 0.4MPV 7.5GLU 101.0 mg/dLBUN 10.0 mg/dLCREAT 0.80 mg/dLCA 9.90 mg/dLNA 136.70 mmol/LK 4.40 mmol/LCL 97.80 mmol/LCL 97.80 mmol/LCO2 31.80 mmol/LGFR 75.8GFR 75.8IRON, TOTAL 75.0 ug/dLFERRITIN 75.0 ng/mL 10/09/2017 9:54 AM Fall Risk Assessment With Handout Performed 02/06/2018 12:00 AM Mammogram Assessment Category benign 04/13/2018 8:47 AM WBC 5.0 x10E3/uLGR % 72.0 %LYM % 20.80 %MID % 7.20 %RBC 4.130 x10E6/uLHGB 11.60 g/dLHCT 34.40 %MCV 83.40 fLMCH 28.10 pgMCHC 33.70 g/dLRDW 15.70 %PLT 244.0 x10E3/uLGRAN # 3.6LYM # 1.0MID # 0.4MPV 7.4COLOR YELLOWCOLOR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 2018 8:53AM Vitamin D Deficiency Nov 13 2018 3:45PM Heart Valve Replacement Nov 13 2018 3:45PM Nonrheumatic aortic valve stenosis Nov 13 2018 3 :45PM Chronic atrial fibrillation Nov 13 2018 3:45PM Osteopenia of multiple sites Nov 13 2018 3:45PM Other non-autoimmune hemolytic anemias Nov 13 3:45PM Pedal edema Nov 13 2018 3:45PM Anxiety Nov 13 2018 3:45PM Cough Dec 25 2018 1:40PM Throat Pain Dec 25 2018 1:40PM Seasonal allergic rhinitis due to pollen Dec 25 2018 1:40PM Atrial fibrillation Apr 05 2019 9:56AM Hypertension, Benign Essential Apr 05 2019 9:56AM Drug therapy Apr 05 2019 9:56AM Anemia Apr 05 2019 9:56AM Disorder of bone density and structure, unspecif ied Apr 05 2019 9:56AM Osteopenia of multiple sites May 10 2019 8:21AM Vitamin D Deficiency May 15 2019 10:57AM Heart Valve Replacement May 15 2019 10:57AM Acute allergic rhinitis due to pollen May 15 9 10:57AM Nonrheumatic aortic valve stenosis May 15 2019 1 0:57AM Chronic atrial fibrillation May 15 2019 10:57AM Osteopenia of multiple sites May 15 2019 10:57AM Other non-autoimmune hemolytic anemias May 15 10:57AM Pedal edema May 15 2019 10:57AM Pulmonary nodules Sep 12 2019 1:35PM Pulmonary nodules/lesions, multiple Mar 06 2020 8 :05AM Hypertension, Benign Essential Mar 06 2020 8:05AM Vitamin D deficiency Mar 06 2020 8:05AM Drug therapy Mar 06 2020 8:05AM Anemia Mar 06 2020 8:05AM Vitamin D Deficiency May 19 2020 1:50PM Heart Valve Replacement May 19 2020 1:50PM Acute allergic rhinitis due to pollen May 19 1:50PM Nonrheumatic aortic valve stenosis May 19 2020 1 :50PM Chronic atrial fibrillation May 19 2020 1:50PM Osteopenia of multiple sites May 19 2020 1:50PM Other non-autoimmune hemolytic anemias May 19 1:50PM Vitamin D Deficiency Aug 28 2020 3:41PM Heart Valve Replacement Aug 28 2020 3:41PM Acute allergic rhinitis due to pollen Aug 28 3:41PM Nonrheumatic aortic valve stenosis Aug 28 2020 3 :41PM Chronic atrial fibrillation Aug 28 2020 3:41PM Osteopenia of multiple sites Aug 28 2020 3:41PM Other non-autoimmune hemolytic anemias Aug 28 3:41PM Vaccine counseling Aug 28 2020 3:41PM Sciatica Aug 28 2020 3:41PM Hypertension, Benign Essential Nov 11 2020 3:45P M Refractory anemia Nov 11 2020 3:45PM Drug therapy Nov 11 2020 3:45PM Annual physical exam Nov 25 2020 9:42AM Body Mass Index [BMI]; body mass index between 25-29, adult; body mass index 29.0-29.9, adult Nov 25 2020 9:42AM Other non-autoimmune hemolytic anemias Nov 25 9:42AM Aortic stenosis Nov 25 2020 9:42AM Atrial fibrillation Nov 25 2020 9:42AM Hypertension, Benign Essential Nov 25 2020 9:42A M Osteopenia of multiple sites Nov 25 2020 9:42AM Refractory anemia Nov 25 2020 9:42AM Hypercoagulopathy Nov 25 2020 9:42AM Hypertension, Benign Essential Dec 02 2020 2:47PM Refractory anemia Dec 02 2020 2:47PM Hypercoagulopathy Dec 02 2020 2:47PM Vitamin D Deficiency Dec 02 2020 2:47PM Heart Valve Replacement Dec 02 2020 2:47PM Acute allergic rhinitis due to pollen Dec 02 2020 2:47PM Nonrheumatic aortic valve stenosis Dec 02 2020 2: 47PM Chronic atrial fibrillation Dec 02 2020 2:47PM Osteopenia of multiple sites Dec 02 2020 2:47PM Pedal edema Dec 02 2020 2:47PM LEPE (dyspnea on exertion) Dec 02 2020 2:47PM Hypertension, Benign Essential Dec 23 2020 10:05 AM Refractory anemia Dec 23 2020 10:05AM Hypercoagulopathy Dec 23 2020 10:05AM Vitamin D Deficiency Dec 23 2020 10:05AM Heart Valve Replacement Dec 23 2020 10:05AM Acute allergic rhinitis due to pollen December 23 10:05AM Nonrheumatic aortic valve stenosis Dec 23 2020 1 0:05AM Chronic atrial fibrillation Dec 23 2020 10:05AM Osteopenia of multiple sites Dec 23 2020 10:05AM Pedal edema Dec 23 2020 10:05AM LEPE (dyspnea on exertion) Dec 23 2020 10:05AM Hypertension, Benign Essential May 14 2021 10:55 AM Refractory anemia May 14 2021 10:55AM Disorder of bone density and structure, unspecif ied May 14 2021 10:55AM Drug therapy May 14 2021 10:55AM Hypertension, Benign Essential May 31 2021 10:39A M Refractory anemia May 31 2021 10:39AM Hypercoagulopathy May 31 2021 10:39AM Vitamin D Deficiency May 31 2021 10:39AM Heart Valve Replacement May 31 2021 10:39AM Acute allergic rhinitis due to pollen May 31 2021 10:39AM Nonrheumatic aortic valve stenosis May 31 2021 10 :39AM Chronic atrial fibrillation May 31 2021 10:39AM Osteopenia of multiple sites May 31 2021 10:39AM Pedal edema May 31 2021 10:39AM LEPE (dyspnea on exertion) May 31 2021 10:39AM Chronic diastolic (congestive) heart failure May 31 2021 10:39AM Hypertension, Benign Essential Nov 12 2021 3:53P M Disorder of bone density and structure, unspecif ied Nov 12 2021 3:53PM Drug therapy Nov 12 2021 3:53PM Hypertension, Benign Essential Dec 02 2021 10:14A M Refractory anemia Dec 02 2021 10:14AM Hypercoagulopathy Dec 02 2021 10:14AM Vitamin D Deficiency Dec 02 2021 10:14AM Heart Valve Replacement Dec 02 2021 10:14AM Nonrheumatic aortic valve stenosis Dec 02 2021 10 :14AM Chronic atrial fibrillation Dec 02 2021 10:14AM Osteopenia of multiple sites Dec 02 2021 10:14AM Pedal edema Dec 02 2021 10:14AM LEPE (dyspnea on exertion) Dec 02 2021 10:14AM Chronic diastolic (congestive) heart failure Dec 02 2021 10:14AM Refractory anemia May 23 2022 2:33PM Hypertension, essential, benign May 23 2022 2:33 PM Disorder of bone density and structure, unspecif ied May 23 2022 2:33PM Drug therapy May 23 2022 2:33PM Osteopenia of multiple sites Jun 09 2022 9:34AM Hypertension, Benign Essential Jun 09 2022 9:43A M Refractory anemia Jun 09 2022 9:43AM Hypercoagulopathy Jun 09 2022 9:43AM Vitamin D Deficiency Jun 09 2022 9:43AM Heart Valve Replacement Jun 09 2022 9:43AM Nonrheumatic aortic valve stenosis Jun 09 2022 9 :43AM Chronic atrial fibrillation Jun 09 2022 9:43AM Osteopenia of multiple sites Jun 09 2022 9:43AM Pedal edema Jun 09 2022 9:43AM LEPE (dyspnea on exertion) Jun 09 2022 9:43AM Chronic diastolic (congestive) heart failure Jun 09 2022 9:43AM Acute allergic rhinitis due to pollen Jun 09 9:43AM Annual physical exam Jun 09 2022 11:43AM Advanced care planning/counseling discussion Jun 09 2022 11:43AM Body mass index (BMI) of 30.0-30.9 in adult Jun 09 2022 11:43AM Chronic diastolic (congestive) heart failure Jun 09 2022 11:43AM Other non-autoimmune hemolytic anemias Nov 10 20 22 11:43AM Aortic stenosis Jun 09 2022 11:43AM Hypertension, Benign Essential Jun 09 2022 11:43 AM Osteopenia of multiple sites Jun 09 2022 11:43AM Other thrombophilia Jun 09 2022 11:43AM Unspecified atrial fibrillation Jun 09 2022 11:4 3AM Refractory anemia Jun 09 2022 11:43AM Hypercoagulopathy Jun 09 2022 11:43AM Hypertension, Benign Essential Nov 23 2022 3:18P M Other thrombophilia Nov 23 2022 3:18PM Unspecified atrial fibrillation Nov 23 2022 3:18 PM Refractory anemia Nov 23 2022 3:18PM Drug therapy Nov 23 2022 3:18PM Chronic diastolic (congestive) heart failure Dec 12 2022 10:00AM Hypertension, Benign Essential Dec 12 2022 10:00 AM Refractory anemia Dec 12 2022 10:00AM Hypercoagulopathy Dec 12 2022 10:00AM Heart Valve Replacement Dec 12 2022 10:00AM Acute allergic rhinitis due to pollen December 12 10:00AM Nonrheumatic aortic valve stenosis Dec 12 2022 1 0:00AM Chronic atrial fibrillation Dec 12 2022 10:00AM Osteopenia of multiple sites Dec 12 2022 10:00AM Colonoscopy refused Dec 12 2022 10:00AM Other non-autoimmune hemolytic anemias December 12 10:00AM Sciatica Feb 02 2023 1:34PM Right hip pain Feb 02 2023 1:34PM Chronic diastolic (congestive) heart failure Feb 02 2023 1:34PM Other thrombophilia Feb 02 2023 1:34PM Unspecified atrial fibrillation Feb 02 2023 1:34P M Hypertensive heart disease with heart failure Ju l 2022 1:34PM Hearing decreased May 03 2023 1:25PM Refractory anemia May 30 2023 4:20PM Hypertensive heart disease with heart failure Oc t 2022 4:20PM Drug therapy May 30 2023 4:20PM Encounter for subsequent fatou [facility] visit (AWV) in Medicare patient Jun 14 2023 10:03AM Advanced care planning/counseling discussion Jun 14 2023 10:03AM Body mass index (BMI) of 30.0-30.9 in adult Jun 14 2023 10:03AM Chronic diastolic (congestive) heart failure Jun 14 2023 10:03AM Other non-autoimmune hemolytic anemias Jun 14 10:03AM Aortic stenosis Jun 14 2023 10:03AM Osteopenia of multiple sites Jun 14 2023 10:03AM Other thrombophilia Jun 14 2023 10:03AM Unspecified atrial fibrillation Jun 14 2023 10:0 3AM Refractory anemia Jun 14 2023 10:03AM Atrial fibrillation Jun 14 2023 10:03AM Hypercoagulopathy Jun 14 2023 10:03AM Hypertensive heart disease with heart failure No v 2022 10:03AM Chronic diastolic (congestive) heart failure Jun 20 2023 9:41AM Other non-autoimmune hemolytic anemias Jun 20 9:41AM Hypertension, Benign Essential Jun 20 2023 9:41A M Refractory anemia Jun 20 2023 9:41AM Hypercoagulopathy Jun 20 2023 9:41AM Heart Valve Replacement Jun 20 2023 9:41AM Acute allergic rhinitis due to pollen Jun 20 9:41AM Nonrheumatic aortic valve stenosis Jun 20 2023 9 :41AM Chronic atrial fibrillation Jun 20 2023 9:41AM Osteopenia of multiple sites Jun 20 2023 9:41AM Colonoscopy refused Jun 20 2023 9:41AM Dyspnea Jun 20 2023 9:41AM Neoplasm of uncertain behavior Oct 24 2023 11:02 AM Chronic diastolic (congestive) heart failure Oct 24 2023 11:02AM Other non-autoimmune hemolytic anemias Oct 23 11:02AM Aortic stenosis Oct 24 2023 11:02AM Osteopenia of multiple sites Oct 24 2023 11:02AM Other thrombophilia Oct 24 2023 11:02AM Unspecified atrial fibrillation Oct 24 2023 11:0 2AM Refractory anemia Oct 24 2023 11:02AM Atrial fibrillation Oct 24 2023 11:02AM Hypercoagulopathy Oct 24 2023 11:02AM Hypertensive heart disease with heart failure Ma r 2023 11:02AM Refractory anemia Dec 04 2023 11:40AM Hypertensive heart disease with heart failure Ma y 2023 11:40AM Disorder of bone density and structure, unspecif ied Dec 04 2023 11:40AM Drug therapy Dec 04 2023 11:40AM Chronic diastolic (congestive) heart failure Dec 26 2023 9:51AM Other non-autoimmune hemolytic anemias December 25 9:51AM Hypertension, Benign Essential Dec 26 2023 9:51A M Refractory anemia Dec 26 2023 9:51AM Hypercoagulopathy Dec 26 2023 9:51AM Heart Valve Replacement Dec 26 2023 9:51AM Acute allergic rhinitis due to pollen December 25 9:51AM Nonrheumatic aortic valve stenosis Dec 26 2023 9 :51AM Chronic atrial fibrillation Dec 26 2023 9:51AM Osteopenia of multiple sites Dec 26 2023 9:51AM Colonoscopy refused Dec 26 2023 9:51AM Squamous cell cancer of scalp and skin of neck M 2023 9:51AM Acute sinusitis, unspecified Feb 02 2024 8:43AM Other specified bacterial ag ents as the cause of diseases classified elsewhere Feb 02 2024 8:43AM Chronic diastolic (congestive) heart failure Feb 02 2024 8:43AM Hypertensive heart disease with heart failure 2023 8:43AM Chronic diastolic (congestive) heart failure Feb 28 2024 1:59PM Other non-autoimmune hemolytic anemias Feb 27 1:59PM Hypertension, Benign Essential Feb 28 2024 1:59P M Refractory anemia Feb 28 2024 1:59PM Hypercoagulopathy Feb 28 2024 1:59PM Heart Valve Replacement Feb 28 2024 1:59PM Acute allergic rhinitis due to pollen Feb 27 1:59PM Nonrheumatic aortic valve stenosis Feb 28 2024 1 :59PM Chronic atrial fibrillation Feb 28 2024 1:59PM Osteopenia of multiple sites Feb 28 2024 1:59PM Colonoscopy refused Feb 28 2024 1:59PM Squamous cell cancer of scalp and skin of neck J 2023 1:59PM LEPE (dyspnea on exertion) Feb 28 2024 1:59PM Payers Insurance Name Company Name Plan Name Plan Number Policy Num foster Policy Group Number Start Date Medicare Medicare [id number] Friday, 2003 [facility] [id number] Sunday, 2013 History of Encounters Visit Date Visit Type Provider 02/28/2024 Established Pt Wilner christensen MD 02/02/2024 Same Day Add On Raquel COLEY 12/26/2023 Established Pt 12/26/2023 Established Pt Wilner christensen MD 12/19/2023 Lab Wilner christensen MD 10/24/2023 Established Pt Raquel COLEY 06/20/2023 Established Pt Wilner christensen MD 06/14/2023 Nurse Visit Wilner christensen MD 06/14/2023 Lab Wilner christensen MD 02/02/2023 Sub Acute 02/02/2023 Sub Acute iLlia TelloSamanta Lopez PIT CRANE OPERATOR 12/12/2022 Established Pt 12/12/2022 Established Pt Wilner christensen MD 12/07/2022 Lab Wilner christensen MD 06/09/2022 Established Pt Wilner christensen MD 06/09/2022 Nurse Visit Wilner christensen MD 06/09/2022 XRay Wilner christensen MD 06/06/2022 Lab Wilner christensen MD 05/25/2022 Nurse Visit Wilner christensen MD 12/02/2021 Established Pt 12/02/2021 Established Pt Wilner christensen MD 11/29/2021 Lab Wilner christensen MD 05/31/2021 Established Pt Wilner christensen MD 05/27/2021 Lab Lab Lab C 12/23/2020 Established Pt Wilner christensen MD 12/02/2020 Established Pt Wilner christensen MD 11/25/2020 Nurse Visit 11/25/2020 Nurse Visit [facility] C 11/25/2020 Lab Lab Lab C 08/28/2020 Established Pt Wilner christensen MD 05/19/2020 Established Pt 05/19/2020 Established Pt Wilner christensen MD 05/15/2020 Lab Lab Lab C 09/12/2019 Lab Lab Lab C 05/15/2019 Established Pt Wilner christensen MD 05/10/2019 XRay XRay XRay C 05/10/2019 Lab Lab Lab C 12/25/2018 Same Day Add On Raquel Manning APNP 11/13/2018 Sub Acute Wilner christensen MD 10/23/2018 Established Pt Raquel Manning APSANJUANITA 10/16/2018 Established Pt Wilner christensen MD 10/15/2018 Lab Lab Lab C 09/18/2018 Same Day Add On Raquel Manning APNP 08/30/2018 Established Pt 08/30/2018 Established Pt Wilner christensen MD 04/16/2018 Established Pt Wilner christensen MD 04/13/2018 Lab Lab Lab C 10/12/2017 Established Pt Wilner christensen MD 10/09/2017 Nurse Visit 10/09/2017 Nurse Visit Wellness Medic[facility] e C 10/09/2017 Lab Lab Lab C 09/13/2017 Established Pt 09/13/2017 Established Pt Wilner christensen MD 08/23/2017 Sub Acute Wilner christensen MD 08/18/2017 Same Day Add On 08/18/2017 Same Day Add On Raquel Schillingkina COLEY 08/16/2017 Sub Acute 08/16/2017 Sub Acute Wilner christensen MD 07/11/2017 Lab Lab Lab C 07/07/2017 Established Pt Raquel WHALEN RN 06/19/2017 Same Day Add On Wilner christensen MD 06/14/2017 Sub Acute Raquel WHALEN RN 06/07/2017 Sub Acute Wilner christensen MD 06/06/2017 Lab Lab Lab C 05/24/2017 Established Pt Raquel WHALEN RN 05/24/2017 Lab Lab Lab C 05/17/2017 Sub Acute Raquel ColtSamanta Nigel COLEY 04/18/2017 Established Pt Wilner christensen MD 04/12/2017 Established Pt Wilner christensen MD 04/10/2017 XRay XRay XRay C 04/10/2017 Lab Lab Lab C 03/24/2017 Same Day Add On 03/24/2017 Same Day Add On 03/24/2017 Same Day Add On 03/24/2017 Same Day Add On Raquel Nigel WHALEN RN 03/21/2017 Established Pt Raquel WHALEN RN 02/28/2017 Sub Acute Wilner christensen MD 02/28/2017 Lab Lab Lab C 02/14/2017 Same Day Add On Raquel WHALEN RN 12/14/2016 Lab Lab Lab C 12/05/2016 Sub Acute Wilner christensen MD 11/04/2016 Sub Acute Wilner christensen MD 10/31/2016 Same Day Add On Raquel WHALEN RN 10/27/2016 Lab Lab Lab C 10/18/2016 Same Day Add On 10/18/2016 Same Day Add On Humera hensley APRN 10/14/2016 Lab Lab Lab C 10/05/2016 Same Day Add On Wilner christensen MD 10/04/2016 Established Pt 10/04/2016 Established Pt Guadalupe Frankel ris PIT CRANE OPERATOR 08/03/2016 Same Day Add On 08/03/2016 Same Day Add On Wilner christensen MD 07/28/2016 Same Day Add On Raquel Manning APNP 04/06/2016 Established Pt Wilner christensen MD 04/06/2016 Lab Lab Lab C 03/14/2016 Same Day Add On Guadalupe MaldonadoSamanta Frankel ris PIT CRANE OPERATOR 08/07/2015 Established Pt Guadalupe Frankel ris PIT CRANE OPERATOR 05/14/2015 Established Pt Humera beasleyl PIT CRANE OPERATOR 04/13/2015 Established Pt Wilner christensen MD 04/02/2015 Lab Lab Lab C 10/29/2014 Sub Acute Wilner christensen MD 06/05/2014 Same Day Add On Humera beasleyl PIT CRANE OPERATOR 05/30/2014 Established Pt Humera hensley PIT CRANE OPERATOR 01/01/2014 Established Pt Wilner christensen MD 12/24/2013 Lab Lab Lab C 10/09/2013 Sub Acute Wilner christensen MD 10/03/2013 Same Day Add On Guadalupe MaldonadoSamanta Frankel ris PIT CRANE OPERATOR 10/03/2013 XRay Wilner christensen MD 09/27/2013 Established Pt Wilner christensen MD 08/23/2013 Same Day Add On Ernestine Roe PA 06/25/2013 Established Pt Wilner christensen MD 06/20/2013 Lab Lab Lab C 12/19/2012 Established Pt Wilner christensen MD 12/17/2012 Lab Lab Lab C 06/19/2012 Established Pt Wilner christensen MD 06/15/2012 Lab Lab Lab C 03/15/2012 Established Pt Yuan ramosis, III PIT CRANE OPERATOR 12/16/2011 Established Pt Wilner christensen MD 12/13/2011 Lab Lab Lab C 07/28/2011 Lab Lab Lab C 06/13/2011 Established Pt Wilner christensen MD 06/03/2011 Lab Lab Lab C 05/12/2011 Same Day Add On Wilner christensen MD 04/01/2011 Same Day Add On Wilner christensen MD 12/01/2010 Established Pt Wilner christensen MD 11/24/2010 Lab Lab Lab C 08/24/2010 Same Day Add On Yuan Saunders rris, III PIT CRANE OPERATOR 08/06/2010 Lab Lab Lab C 07/08/2010 Same Day Add On Devin Carcamo PA-C 05/26/2010 Established Pt Wilner christensen MD 05/20/2010 Lab Lab Lab C 03/04/2010 Same Day Add On Wilner christensen MD 02/11/2010 Lab Lab Lab C 02/04/2010 Lab Lab Lab C 11/26/2009 Same Day Add On Wilner christensen MD 11/18/2009 Established Pt Wilner christensen MD 11/10/2009 Lab Lab Lab C 06/17/2009 Same Day Add On Wilner christensen MD 05/12/2009 Established Pt Wilner christensen MD 05/08/2009 Lab Lab Lab C 03/09/2009 Established Pt Wilner christensen MD 01/09/2009 Lab Lab Lab C 01/08/2009 Physical Wilner christensen MD 12/30/2008 Established Pt Yuan Saunders rris, III PIT CRANE OPERATOR 10/21/2008 Established Pt Devin Peng 09/24/2008 Same Day Add On Abhay O. ZZZGast on 07/02/2008 Same Day Add On Mague ZZZZWilban ks Do not use 06/24/2008 Same Day Add On Mague ZZZZWilban ks Do not use 05/27/2008 Established Pt Wilner christensen MD 05/16/2008 Same Day Add On Wilner christensen MD 04/24/2008 Same Day Add On Mague ZZZZWilban ks Do not use 02/07/2008 Established Pt Wilner christensen MD 01/03/2008 Established Pt Yuan christensen, III PIT CRANE OPERATOR 12/20/2007 Lab Lab Lab C 12/12/2007 Established Pt Devin Peng 11/07/2007 Established Pt Wilner christensen MD 10/25/2007 Established Pt Yuan christensen, III PIT CRANE OPERATOR 09/07/2007 Lab Lab Lab C 08/13/2007 Same Day Add On Wilner christensen MD 07/11/2007 Protime Protime Protime C 05/28/2007 Lab Lab Lab C 05/24/2007 Lab Lab Lab C 05/11/2007 Same Day Add On Wilner christensen MD 04/27/2007 Same Day Add On Wilner christensen MD 04/12/2007 Lab Lab Lab C 03/09/2007 Same Day Add On Abhay Norris on 02/12/2007 Lab Lab Lab C 01/05/2007 Same Day Add On Wilner christensen MD 01/04/2007 Lab Lab Lab C 12/18/2006 Same Day Add On Wilner christensen MD 12/05/2006 Lab Lab Lab C 11/30/2006 Same Day Add On Wilner christensen MD
--- OUTSIDE RECORDS SUMMARY | 2024-04-12 14:07 | XMS_ITS | Patient Health Record ---
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 Name Role Phone Wilner Nelson Primary Care Provider Tarah Freeman Unavailable [phone] Allergies Allergen (clinical drug ingredient) Drug/Non Drug Allergy documented on EMR Reaction Allergy Type Onset Date Status Norflex (orphenadrin e citrate) (uncoded) Unknown Allergy 1950 Active PINE TREE (uncoded) Unknown Allergy 1950 Active aspirin Aspirin Unknown Drug Allergy Active cefprozil Cefprozil Unknown Drug Allergy Active CODEINE GROUP Unknown Drug Allergy 1950 Ac tive codeine Codeine Sulfate Unknown Drug Allergy A ctive meperidine Demerol Unknown Drug Allergy Active Demerol (meperidine) Unknown Drug Allergy 1949 Active hydromorphone Dilaudid Unknown Drug Allergy Act michael lidocaine Lidocaine Unknown Drug Allergy Active enoxaparin Lovenox Unknown Drug Allergy Active Lovenox (enoxaparin) Unknown Drug Allergy 1949 Active nitroglycerin Nitroglycerin Unknown Drug Allergy Active nitroglycerin Nitrostat Unknown Drug Allergy Act michael Norflex Unknown Drug Allergy Active penicillin G Penicillin G Potassium Unknown Drug Allergy Active promethazine Phenergan Unknown Drug Allergy Acti ve Phenergan (promethazine hcl) Unknown Drug Allergy 1950 Active Streptococcus pneumoniae type 1 capsular polysaccharide antigen / Streptococcus pneumoniae type 10A capsular polysaccharide antigen / Streptococcus pneumoniae type 11A capsular polysaccharide antigen / Streptococcus pneumoniae type 12F capsular polysaccharide antigen / Streptococcus pneumoniae type 14 capsular polysaccharide antigen / Streptococcus pneumoniae type 15B capsular polysaccharide antigen / Streptococcus pneumoniae type 17F capsular polysaccharide antigen / Streptococcus pneumoniae type 18C capsular polysaccharide antigen / Streptococcus pneumoniae type 19A capsular polysaccharide antigen / Streptococcus pneumoniae type 19F capsular polysaccharide antigen / Streptococcus pneumoniae type 2 capsular polysaccharide antigen / Streptococcus pneumoniae type 20 capsular polysaccharide antigen / Streptococcus pneumoniae type 22F capsular polysaccharide antigen / Streptococcus pneumoniae type 23F capsular polysaccharide antigen / Streptococcus pneumoniae type 3 capsular polysaccharide antigen / Streptococcus pneumoniae type 33F capsular polysaccharide antigen / Streptococcus pneumoniae type 4 capsular polysaccharide antigen / Streptococcus pneumoniae type 5 capsular polysaccharide antigen / Streptococcus pneumoniae type 6B capsular polysaccharide antigen / Streptococcus pneumoniae type 7F capsular polysaccharide antigen / Streptococcus pneumoniae type 8 capsular polysaccharide antigen / Streptococcus pneumoniae type 9N capsular polysaccharide antigen / Streptococcus pneumoniae type 9V capsular polysaccharide antigen Pneumovax 23 Unknown Drug Allergy Active prednisone Unknown Drug Allergy Active quinidine Quinidine Sulfate Unknown Drug Allergy Active Sulfur Unknown Drug Allergy Active verapamil Verapamil HCl Unknown Drug Allergy Act michael hydralazine hydrALAZINE sob Drug Allergy Act michael Substance with penicillin structure and antibacterial mechanism of action (substance) Penicillins Group Unknown Drug Allergy 1950 Active Vaccine product containing Streptococcus pneumoniae antigen (medicinal product) PNEUMONIA SHOT Unknown Drug Allergy 1950 Active Substance with sulfonamide structure and antibacterial mechanism of action (substance) Sulfa (Sulfonamide Antibiotics) Group Unknown Drug Allergy 1950 Active verapamil verapamil Unknown Drug Allergy 1950 Active Reason For Referral Reason Dyspnea Diagnosis 1 Dyspnea, unspecified type (R06.00) Referring Provider First Name Wilner Referring Provider Last Name Omar Referring Provider Speciality Family [facility] Referred Organization [facility] Referred Provider Charlie Callahan Referred Address [address] [place] [address] [address],[place], [place],[phone], Referred Provider Specialty Pulmonary Lashell miller Referral Priority Routine Medications Medication SIG (Take, Route, Frequency, Duration) Notes Start Date End Date Status Metoprolol Tartrate 25 MG Oral Tablet 0.5 tab twice daily 12/26/2017 Act michael Calcium Carbonate 1250 MG / Cholecalciferol 125 UNT Oral Tablet Calcium Carbonate 1250 MG / Cholecalciferol 125 UNT Oral Tablet 12/26/2017 Active Lisinopril 20 MG 1 tablet Orally bid Lisinopril 01/10/2018 Active Amlodipine 5 MG Oral Tablet Amlodipine 5 MG Oral Tablet 12/26/2017 Active Warfarin Sodium 5 MG 1 tablet Orally Once a day Active Bumetanide 1 MG as directed Orally every 24 hrs Bumetanide 03/15/2019 Active Montelukast Sodium 10 MG 1 tablet Orally Once a day Active Pepcid AC 10 MG 1 tablet as needed Orally Twice a day Active Artificial Tears Act michael ALPRAZolam 0.25 MG 1 tablet Orally Twice a day 0.5 tab daily 01/10/2018 Active Fluticasone propionate 0.05 MG/ACTUAT Metered Dose Nasal [place] Fluticasone propionate 0.05 MG/ACTUAT Metered Dose Nasal [place] 01/10/2018 Active Tylenol extra strength 01/10/2018 Acti ve Klor-Con 10 meq 01/10/2018 Active ZyrTEC 5 mg 02/15/2019 Active Cefpodoxime Proxetil 200 MG 1 tablet with food Orally every 12 hrs Active Iron Active Fish Oil Active Immunizations Vaccine Route Administration Date Status Comme nts Influenza (whole), CPT 10955 Inactive Unknown 04/30/2012 Administered Influenza (whole), CPT 05470 Inactive Unknown 07/28/2016 Administered Influenza (whole), CPT 04123 Inactive Unknown 05/22/2017 Administered Influenza (whole), CPT 06643 Inactive Unknown 05/26/2017 Administered Influenza (whole), CPT 09999 Inactive Unknown 06/01/2018 Administered Influenza, high dose seasonal Unknown 04/30/2019 Admini stered Pneumococcal conjugate PCV 13 Unknown 10/09/2017 Admini stered Social History Tobacco Use: Social History Observation Description Date Details (start date - stop date) Never Smoker NA - NA xTobacco Use/Smoking Question Answer Notes Are you a nonsmoker Alcohol Screen (Audit-C) Question Answer Notes Did you have a drink containing alcohol in the p ast year? No Points 0 Interpretation Negative PHQ-9 Question Answer Notes Little interest or pleasure in doing things Not at all Feeling down, depressed, or hopeless Not at all Trouble falling or staying asleep, or sleeping t oo much Not at all Feeling tired or having little energy Not at all Poor appetite or overeating Not at all Feeling bad about yourself, or that you are a failure, or have let yourself or your family down Not at all Trouble concentrating on thi ngs, such as reading the newspaper or watching television Not at all Moving or speaking so slowly that other people could have noticed. Or the opposite ? being so fidgety or restless that you have been moving around a lot more than usual Not at all Thoughts that you would be b kian off , or of hurting yourself in some way Not at all Total Score 0 Problems Problem Type SNOMED Code ICD Code Onset Dates Problem Status W/U Status Risk Notes Problem Cardiac pacemaker in situ (833195560) Presence of cardiac pacemaker (Z95.0) Active confirmed [id number] Sn[place] Description: Cardiac pacemaker in situ Problem Sick sinus syndrome (09944280) Sick sinus syndrome (I49.5) Active confirmed [id number]- Snomed Description: Sick sinus syndrome Plan Of Treatment Future Test Test Name Order Date Comprehensive Metabolic Panel 17934 02/28 CBC Reflex Man Diff 77111, 15043 020 Insurance Providers Payer Name Payer Address Payer Phone Subscriber Number Group Number Insured Name Patient Relationship to Insured Coverage Start Date Coverage End Date [place] [address] [place] [phone] [id number] Richelle Klein Self - patient is the insured [facility] [address] [address] [place] [address] [phone] [id number] GuiltRichelle alvarado Self - patient is the insured Medical (General) History Medical History History ICD Code Problem:Allergic rhinitis (disorder) , S tatus :: Active Problem:Anemia (disorder) , Status :: Ac tive Problem:Angina (disorder) , Status :: Ac tive Problem:Anticoagulant therapy (procedure ) , Status :: Active Problem:Anxiety (finding) , Status :: Ac tive Problem:Aortic valve stenosis (disorder) , Status :: Active Problem:Arthritis (disorder) , Status :: Active Problem:Atrophic vaginitis (disorder) , Status :: Active Problem:Chronic atrial fibrillation (dis order) , Status :: Active Problem:Congestive heart failure (disord er) , Status :: Active Problem:Decreased estrogen level (findin g) , Status :: Active Problem:Depression - motion (qualifier v alue) , Status :: Active Problem:Dizzy spells (finding) , Status :: Active Problem:Female urinary stress incontinen ce (finding) , Status :: Active Problem:Gastroesophageal reflux disease (disorder) , Status :: Active Problem:Heart murmur (finding) , Status :: Active Problem:Hemorrhoids (disorder) , Status :: Active Problem:History of - anticoa gulant therapy (context-dependent category) , Status :: Active Problem:Hypercholesterolemia (disorder) , Status :: Active Problem:Hypertensive disorde r, systemic arterial (disorder) , Status :: Active Problem:Irregular heart beat (finding) , Status :: Active Problem:Multiple nodules of lung (findin g) , Status :: Active Problem:Never smoked tobacco (finding) , Status :: Active Problem:Non-autoimmune hemolytic anemia (disorder) , Status :: Active Problem:Osteoarthritis (disorder) , Stat us :: Active Problem:Osteopenia (disorder) , Status : : Active Problem:Sick sinus syndrome (disorder) , Status :: Active Problem:Anemia (disorder) , Status :: Ac tive Problem:Anticoagulant therapy (procedure ) , Status :: Active Problem:Anxiety (finding) , Status :: Ac tive Problem:Arthritis (disorder) , Status :: Active Problem:Chronic atrial fibrillation (dis order) , Status :: Active Problem:Chronic depression (disorder) , Status :: Active Problem:Congestive heart failure (disord er) , Status :: Active Problem:Heart disease (disorder) , Statu s :: Active Problem:Hypertensive disorde r, systemic arterial (disorder) , Status :: Active Problem:Maintenance procedur e for cardiac pacemaker system (procedure) , Status :: Active Problem:Multiple nodules of lung (findin g) , Status :: Active Problem:Polyp of colon (disorder) , Stat us :: Active heart disease measles mumps chicken pox rheumatic fever chronic bladder infections blood transfusion hemorrhoids hives bronchitis mitral valve prolapse colonic polyps hyperlipidemia pacemaker Surgical History Surgery Date(Month/Year) Mechanical heart valve prosthesis Pacemaker care Total hysterectomy mitral valve implanted aortic valve implanted hysterectomy, vaginal Breast biopsy sample Hospitalization History Reason Date(Month/Year) see surgeries
[2024-04-12 16:00] VITALS: BP 142/66; PULSE 89; RESP 17; TEMP 36.6; O2SAT 97
--- NOTE | 2024-04-12 16:02 | PM.HP ---
Providers/Chief Complaint Admitting Physician: Zachariah Harris MD Primary Care Provider: Wilner Nelson MD History of Present Illness Richelle Klein is a 74 year old female with a history of chronic atrial fibrillation, status post aortic and mitral valve replacement, status post permanent pacemaker plantation, was found to have elective replacement indication for the device. The patient is on long-term oral anticoagulation. She has allergic to Lovenox. She also has multiple other extensive allergies. She is admitted to the hospital for IV heparin as bridging anticoagulation. Patient has no chest pain or palpitations. No dizziness or syncopal episodes. No fever, chills or cough. She has been compliant with medications. Her INR from today was found to be 1.8. Her LV ejection fraction was 50 to 55% by echocardiogram in 2022. his patient had a mitral valve replacement initially in 1991.? In 2009, she had aortic valve replacement and redo of the mitral valve?.? After the 2009 surgery, she had a permanent pacer implantation with the generator placed into the epigastric area, currently due to epicardial wires?.? In 2016, she had a permanent pacemaker plantation through the left subclavian vein.? Her pacemaker and the 2010 surgeries were done at the [facility] in [place], by Dr. Hankins.? She is generally doing okay.? She has dyspnea on exertion which has been slowly getting worse.? She also has intermittent swelling of the lower extremities.? She is on bumetanide and potassium.? Denies any orthopnea or PND. Review of Systems Narrative: CONSTITUTIONAL: No fever or chills. EYES: No blurring of vision or other visual disturbances lately. ENT: No hoarseness of voice, auditory disturbances or sore throat. CARDIOVASCULAR: As mentioned above. RESPIRATORY: No significant cough. GASTROINTESTINAL: No hematemesis or melena. GENITOURINARY: No dysuria or hematuria. INTEGUMENTARY: No skin rashes or history of skin cancer. NEURO: No transient ischemic attacks or amaurosis. PSYCHIATRIC: No history of psychosis or major depression. HEMATOLOGIC: On long-term oral anticoagulation ENDOCRINE: No history of polyuria or polydipsia. MUSCULOSKELETAL: No recent joint pain or swelling. ALLERGY/IMMUNOLOGY: As mentioned above. Medications/Allergies Home Medications Medication Instructions Recorded Confirmed Last Taken Type amlodipine 5 mg tablet 5 mg PO DAILY 03/05/20 04/12/24 Unknown History ascorbic acid (vitamin C) 500 mg 500 mg PO DAILY 03/05/20 04/12/24 Unknown History capsule calcium carbonate 600 mg-vitamin 1 cap PO DAILY 03/05/20 04/12/24 Unknown History D3 12.5 mcg (500 unit) capsule docusate sodium 100 mg capsule 100 mg PO DAILY 03/05/20 04/12/24 Unknown History (Colace) famotidine 10 mg chewable tablet 10 mg PO DAILY PRN indigestion 03/05/20 04/12/24 Unknown History fluticasone propionate 50 2 spray intranasal DAILY PRN 03/05/20 04/12/24 Unknown History mcg/actuation nasal allergy symptoms spray,suspension lisinopril 20 mg tablet 20 mg PO BID 03/05/20 04/12/24 Unknown History omega-3 fatty acids 1,000 mg 1,000 mg PO DAILY 03/05/20 04/12/24 Unknown History capsule (Fish Oil Concentrate) alprazolam 0.25 mg tablet 0.125 mg PO BID PRN anxiety 03/06/20 04/12/24 Unknown History potassium chloride 10 mEq 10 meq PO BID 09/21/20 04/12/24 Unknown History tablet,extended release cefpodoxime 200 mg tablet 200 mg PO DAILY PRN infection 12/13/21 04/12/24 Unknown History bumetanide 1 mg tablet 1 mg PO BID 06/20/22 04/12/24 Unknown History levocetirizine 5 mg tablet (Xyzal) 2.5 mg PO DAILY 06/20/22 04/12/24 Unknown History comp.stocking,knee,long,medium #12 ea 01/13/23 04/12/24 Unknown Rx metoprolol tartrate 25 mg tablet 12.5 mg (1/2 x 25 mg) PO BID #90 01/16/23 04/12/24 Unknown Rx tabs warfarin 5 mg tablet 5 mg PO DAILY 07/10/23 04/12/24 Unknown History acetaminophen 325 mg capsule 325 mg PO QID PRN Pain (Scale 04/12/24 04/12/24 Unknown History (Tylenol) Score 1-3) diclofenac sodium 1 % topical gel 2 g topical QID PRN Pain (Scale 04/12/24 04/12/24 Unknown History Score 1-3) doxycycline hyclate 100 mg tablet 100 mg PO BID 04/12/24 04/12/24 Unknown History montelukast 10 mg tablet 10 mg PO DAILY 04/12/24 04/12/24 Unknown History Allergies Allergy/AdvReac Type Severity Reaction Status Date / Time aspirin Allergy on warfain Verified 03/21/24 11:02 cefprozil Allergy rash Verified 03/21/24 11:02 codeine Allergy hallucinati Verified 03/21/24 11:02 ons enoxaparin [From Lovenox] Allergy previous Verified 03/21/24 11:02 overdose hydromorphone [From Dilaudid] Allergy hallucinati Verified 03/21/24 11:02 ons lidocaine Allergy word salad Verified 03/21/24 11:02 meperidine [From Demerol] Allergy hallucinati Verified 03/21/24 11:02 ons nitroglycerin Allergy opens Verified 03/21/24 11:02 [From Nitro-Bid] heart valves too far, too fast orphenadrine [From Norflex] Allergy unknown Verified 03/21/24 11:02 Penicillins Allergy rash Verified 03/21/24 11:02 pneumococcal vaccine Allergy hives, Verified 03/21/24 11:02 difficulty breathing promethazine [From Phenergan] Allergy involuntary Verified 03/21/24 11:02 muscle movement quinidine Allergy fatigue Verified 03/21/24 11:02 Sulfa (Sulfonamide Allergy unknown Verified 03/21/24 11:02 Antibiotics) verapamil Allergy bradycardia, Verified 03/21/24 11:02 hypotension PFSH Acute PFSH: Medical History Hx of cardiac pacemaker History of atrial fibrillation Surgical History Hx of mitral valve repair History of heart valve replacement History of aortic valve replacement Mitral valve replaced Family History Mother CAD (coronary artery disease), Onset Age: 60 Father CAD (coronary artery disease) Stroke Sister Cancer Sister Cancer Grandfather Diabetes Denies family history of Clotting disorder Dementia Chronic kidney disease (CKD) Suicide Anesthesia complication Bleeding disorder Lung disease Social History Smoking and tobacco/nicotine status: never used tobacco/nicotine Alcohol intake: never Substance/Drug Use: never Vitals/I&O/Wt Last Vital Signs O2 Del Method Room Air 04/12/24 14:16 Weight last 48 hrs Weight 180 lb Physical Exam Narrative: GENERAL: The patient is alert and oriented times three. Not in any acute distress. HEENT: No significant pallor, icterus or lymphadenopathy.Oral cavity: There are no mucous membrane lesions. NECK: Trachea appears to be central. No masses noted. No JVD or thyromegaly appreciated. RESPIRATORY: Chest is symmetrical. No intercostals muscle retraction or any accessory muscle activation. There is no chest wall tenderness. Breath sounds are heard bilaterally. No rales or rhonchi heard. No evidence of any consolidation. BREASTS: Deferred. HEART: The aortic and mitral valve opening and closing sounds are normal. No S3 or S4. Short systolic murmur in the lower sternal border. No diastolic murmurs.. No pericardial rub ABDOMEN: No vessel pulsations or distention. No tenderness. No organomegaly appreciated. Bowel sounds are normally heard. : Deferred. RECTAL: Deferred. LYMPHATIC: No lymphadenopathy noted in the neck. EXTREMITIES: No edema or cyanosis. No clubbing. MUSCULOSKELETAL: No acute joint deformities or swelling SKIN: There are no significant rashes or ecchymosis NEUROPSYCHIATRIC: The patient is alert and oriented x3. Appears to be in a good mood. No tremors or rigidity noted. Data Other data: Echocardiogram from 2022 LV systolic function is normal with EF 50 to 55%. Diastolic function is indeterminate because of atrial fibrillation. Left atrial enlargement Possibly Mechanical valve is seen in mitral position. Trace mitral regurgitation Mildly elevated gradient across the bioprosthetic aortic valve. DVI is 0.34 which in normal Moderate tricuspid regurgitation Severe pulmononary hypertension Trace pulmonic regurgitation. Compared to prior echocardiogram from 12/2021, no significant changes are seen A&P Assessment and plan (1) Pacemaker at end of battery life: This patient has a single-chamber device. The pacemaker was implanted on 02/20/2017. The device went into STANIS[place] on 02/20/2024. The sensing and pacing function was found to be appropriate. Lead impedance also is good. We are planning to have the pacemaker revision on Monday. (2) Aortic valve replaced: Patient had TAVR in 2009. 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 This had a redo surgery in 2009?. (4) History of atrial fibrillation: Patient is in chronic atrial fibrillation and is on long-term oral anticoagulation. The Coumadin was held 2 days ago. Today's INR is 1.8. She is going to be started on IV heparin. Will follow the protocol. (5) Multiple drug allergies: Patient is allergic to Lovenox. So for that reason, she was brought to the hospital for IV heparin. Plan Possible pacemaker revision on Monday morning. Heparin need to be discontinued at 8 PM on Monday evening. Attestations Medical Necessity Statement*: Patient requires continued hospital stay for close monitoring and further management Will get the baseline labs and EKG today. Continue on the home medications except the Coumadin Coding Level of Care Code 61352 Diagnoses Pacemaker at end of battery life Z45.010 Aortic valve replaced Z95.2 Mitral valve replaced Z95.2 History of atrial fibrillation Z86.79 Multiple drug allergies Z88.9
[2024-04-12 16:23] VITALS: O2SAT 97
--- NOTE | 2024-04-12 16:41 | ECG_ITS ---
[facility] Test Date: 2024-04-12 Pat Name: Richelle Klein Department: Room: 261 Gender: Female Manager Practice: : 1950 Requested By: Zachariah Harris Order Number: [id number] Peter MD: Zachariah Harris M.D. Measurements Intervals [place] Rate: 65 P: 0 WA: 0 QRS: -71 QRSD: 192 T: 85 QT: 491 QTc: 511 Interpretive Statements ELECTRONIC VENTRICULAR PACEMAKER ABNORMAL RHYTHM ECG Compared to ECG 09/05/2017 10:01:00 Atrial fibrillation no longer present Myocardial infarct finding no longer present Electronically Signed On 04-12-2024 16:56:09 CDT by Zachariah Harris M.D. [id number]
[2024-04-12 17:45] LABS: Basophils % 0.7 %; Eosinophils # 0.1 10^3/uL (0.0-0.8); Eosinophils % 1.9 %; Hematocrit 32.8 % (36-47); Lymphocytes # 0.8 10^3/uL (0.8-4.8); Mean Corpuscular HGB Conc 31.1 g/dL (30-55); Mean Corpuscular Volume 86.8 fl (85-98); Mean Platelet Volume 10.1 fL (7.4-10.4); Monocytes # 0.6 10^3/uL (0.2-0.9); Neutrophils # 4.39 10^3/uL (1.8-7.7); Neutrophils % 74.1 %; Nucleated Red Blood Cells % 0 %; Platelet Count 204 10^3/cmm (157-399); Red Blood Count 3.78 10^6/uL (3.85-5.65); Red Cell Distribution Width 16.2 % (12.1-15.1); White Blood Count 5.92 10^3/uL (3.29-11.43)
[2024-04-12 17:59] LABS: Partial Thromboplastin Time 43.2 SECONDS (23.9-36.7)
[2024-04-12 18:02] LABS: Alanine Aminotransferase 17 U/L (0-33); Albumin Level 4.4 g/dL (3.5-5.2); Alkaline Phosphatase 107 U/L (35-105); Anion Gap 14.3 (5-19); Aspartate Amino Transferase 21 U/L (0-32); Blood Urea Nitrogen 37 mg/dL (8-23); Calcium 9.7 mg/dL (8.5-10.5); Carbon Dioxide 29 mmol/L (22-29); Chloride 97 mmol/L (98-107); Globulin 3.5 g/dL (1.3-4.6); Glucose 102 mg/dL (65-115); Osmolality Calculated 291 mOsm/kg (285-295); Potassium 4.3 mmol/L (3.5-5.1); Sodium 136 mmol/L (136-145); Total Bilirubin 0.4 mg/dL (0.15-1.2); Total Protein 7.9 g/dL (6.6-8.7)
[2024-04-12 18:17] LABS: Creatinine Clr Calc Pharmacy 51.3048
[2024-04-12 18:28] VITALS: PULSE 69
[2024-04-12] MEDS: heparin drip 25,000 UNIT/500 ML PREMIX 23 UNIT IV (18:52)
--- NOTE | 2024-04-12 19:27 | PC.NURSE ---
Attempted to call Dr. Harris with no answer about patient's list of antibiotics that she is able to take around 1900. List given to night coordinator.
--- NOTE | 2024-04-12 19:29 | PC.NURSE ---
Per instructions received from Dr. Harris to fabian LINARES, attempted to call Dr. Harris to inform him of ABT pt is safe to take. Physician did not answer call.
--- NOTE | 2024-04-12 19:58 | PC.NURSE ---
Received call back from Dr. Harris. Verified home medications w/him, and was instructed to restart home meds except coumadin. Pt and informed.
[2024-04-12 20:00] VITALS: BP 150/46; PULSE 72; RESP 20; TEMP 36.6; O2SAT 96
[2024-04-12] MEDS: amlodipine 5 mg Tablet PO (21:18)
[2024-04-12] MEDS: lisinopril 20 mg Tablet PO (21:18)
[2024-04-12] MEDS: potassium chloride ER 10 mEq Tablet PO (21:18)
[2024-04-12] MEDS: bumetanide 1 mg Tablet PO (21:18)
[2024-04-12] MEDS: metoprolol tartrate 25 mg Tablet 12.5 MG PO (21:19)
[2024-04-12 22:26] VITALS: PULSE 65
[2024-04-13] VITALS (9 sets, daily range): BP systolic 136–165; BP diastolic 60–74; PULSE 65–75; RESP 14–20; TEMP 36.5–36.9; O2SAT 93–96
[2024-04-13 01:54] LABS: Partial Thromboplastin Time 214.8 SECONDS (23.9-36.7)
[2024-04-13 06:27] LABS: Partial Thromboplastin Time 43.2 SECONDS (23.9-36.7)
[2024-04-13] MEDS: ascorbic acid 500 mg Tablet PO (08:57)
[2024-04-13] MEDS: metoprolol tartrate 25 mg Tablet 12.5 MG PO ×2 (08:57→17:11)
[2024-04-13] MEDS: potassium chloride ER 10 mEq Tablet PO ×2 (08:58→17:11)
[2024-04-13] MEDS: lisinopril 20 mg Tablet PO ×2 (08:58→17:11)
[2024-04-13] MEDS: cetirizine 10 mg Tablet PO (08:58)
[2024-04-13] MEDS: bumetanide 1 mg Tablet PO ×2 (08:58→17:11)
[2024-04-13] MEDS: montelukast sodium 10 mg Tablet PO (08:58)
[2024-04-13] MEDS: calcium carb-vit d 600mg/400unit 1 Tablet 1 EACH PO (08:58)
[2024-04-13] MEDS: docusate sodium 100 mg Capsule PO (09:02)
--- NOTE | 2024-04-13 10:06 | P.PN_ITS ---
Subjective 2 Subjective: Patient is doing well. no chest pain. On heparin gtt Vitals/I&O/Wt Last Vital Signs Temp 98.2 F 04/13/24 08:00 Pulse 75 04/13/24 08:00 Resp 16 04/13/24 08:00 BP 152/63 04/13/24 08:00 Pulse Ox 94 04/13/24 08:00 O2 Del Method Room Air 04/13/24 08:00 04/12/24 04/13/24 04/13/24 22:59 06:59 14:59 Intake Total 164.833 / 164.833 0 / 0 Balance 164.833 / 164.833 0 / 0 Weight last 48 hrs Weight 180 lb 4.8 oz Weight 180 lb Physical Exam 2 Narrative: GENERAL: Patient is alert, awake and oriented x3. [] NECK: No jugular vein distension. [] HEENT: No cyanosis. No icterus. No pallor. [] HEART: Regular S1 and S2. Click present LUNGS: Clear to auscultate bilaterally. [] CENTRAL NERVOUS SYSTEM: Grossly nonfocal. [] EXTREMITIES: Lower extremities with 1+ edema bilaterally. Data 04/12/24 17:23 04/12/24 17:23 A&P Assessment and plan (1) Pacemaker at end of battery life: (2) Aortic valve replaced: (3) Mitral valve replaced: (4) History of atrial fibrillation: (5) Multiple drug allergies: Plan Patient is overall stable. Continue heparin drip. It will be stopped at 8 PM tomorrow. N.p.o. after midnight on Monday. Pacemaker revision planned for Monday. Attestations 2 Medical Necessity Statement*: Care expected to cross 2 midnights. Patient admitted for pacemaker revision and requiring anticoagulation bridging. Coding Level of Care Code Acute Code for Chg Fwd Diagnoses Pacemaker at end of battery life Z45.010 Aortic valve replaced Z95.2 Mitral valve replaced Z95.2 History of atrial fibrillation Z86.79 Multiple drug allergies Z88.9
[2024-04-13 12:36] LABS: Partial Thromboplastin Time 69.2 SECONDS (23.9-36.7)
[2024-04-13] MEDS: amlodipine 5 mg Tablet PO (20:31)
[2024-04-13 21:14] LABS: Partial Thromboplastin Time 95.3 SECONDS (23.9-36.7)
[2024-04-13] MEDS: heparin drip 25,000 UNIT/500 ML PREMIX 11 UNIT IV (21:21)
[2024-04-14] VITALS (9 sets, daily range): BP systolic 136–160; BP diastolic 53–85; PULSE 65–97; RESP 15–18; TEMP 36.3–36.9; O2SAT 92–96
[2024-04-14 04:37] LABS: Partial Thromboplastin Time 57.8 SECONDS (23.9-36.7)
--- NOTE | 2024-04-14 08:08 | P.PN_ITS ---
Subjective 2 Subjective: Patient is doing well. No chest pain Vitals/I&O/Wt Last Vital Signs Temp 97.3 F L 04/14/24 04:00 Pulse 68 04/14/24 05:43 Resp 18 04/14/24 04:00 BP 147/53 04/14/24 04:00 Pulse Ox 93 04/14/24 04:00 O2 Del Method Room Air 04/14/24 00:00 04/13/24 04/14/24 04/14/24 22:59 06:59 14:59 Intake Total 478.933 / 1062.666 320.483 / 1383.149 Balance 478.933 / 1062.666 320.483 / 1383.149 Weight last 48 hrs Weight 180 lb 6.4 oz Weight 180 lb 4.8 oz Weight 180 lb Physical Exam 2 Narrative: GENERAL: Patient is alert, awake and oriented x3. [] NECK: No jugular vein distension. [] HEENT: No cyanosis. No icterus. No pallor. [] HEART: Regular S1 and S2. Click present LUNGS: Clear to auscultate bilaterally. [] CENTRAL NERVOUS SYSTEM: Grossly nonfocal. [] EXTREMITIES: Lower extremities with 1+ edema bilaterally. Data 04/12/24 17:23 04/12/24 17:23 A&P Assessment and plan (1) Pacemaker at end of battery life: (2) Aortic valve replaced: (3) Mitral valve replaced: (4) History of atrial fibrillation: (5) Multiple drug allergies: Plan No changes at this time. N.p.o. after midnight. Plan for pacemaker revision tomorrow. Will hold heparin drip tonight. Attestations 2 Medical Necessity Statement*: Care expected to cross 2 midnights. Coding Level of Care Code Acute Code for Chg Fwd Diagnoses Pacemaker at end of battery life Z45.010 Aortic valve replaced Z95.2 Mitral valve replaced Z95.2 History of atrial fibrillation Z86.79 Multiple drug allergies Z88.9
[2024-04-14] MEDS: heparin drip 25,000 UNIT/500 ML PREMIX 11 UNIT IV (09:27)
[2024-04-14] MEDS: potassium chloride ER 10 mEq Tablet PO ×2 (09:29→18:32)
[2024-04-14] MEDS: lisinopril 20 mg Tablet PO ×2 (09:29→18:32)
[2024-04-14] MEDS: calcium carb-vit d 600mg/400unit 1 Tablet 1 EACH PO (09:29)
[2024-04-14] MEDS: docusate sodium 100 mg Capsule PO (09:29)
[2024-04-14] MEDS: bumetanide 1 mg Tablet PO ×2 (09:29→18:32)
[2024-04-14] MEDS: metoprolol tartrate 25 mg Tablet 12.5 MG PO ×2 (09:30→18:32)
[2024-04-14] MEDS: ascorbic acid 500 mg Tablet PO (09:30)
[2024-04-14 10:23] LABS: Partial Thromboplastin Time 39.8 SECONDS (23.9-36.7)
[2024-04-14 17:16] LABS: Partial Thromboplastin Time 63.6 SECONDS (23.9-36.7)
[2024-04-14] MEDS: amlodipine 5 mg Tablet PO (20:20)
[2024-04-14] MEDS: montelukast sodium 10 mg Tablet PO (20:20)
[2024-04-14] MEDS: cetirizine 10 mg Tablet PO (20:20)
[2024-04-15] VITALS (16 sets, daily range): BP systolic 109–172; BP diastolic 53–77; PULSE 50–85; RESP 15–17; TEMP 36.6–37; O2SAT 94–97
[2024-04-15] MEDS: metoprolol tartrate 25 mg Tablet 12.5 MG PO ×2 (04:42→17:42)
--- NOTE | 2024-04-15 04:56 | PC.NURSE ---
Pt c/o dizziness, a slight MAGDALENO . Pt's b/p 172/[address] Meek w/NO received and noted to administer Metoprolol 12.5mg 0900 dose now, and recheck b/p 1 hr. If systolic b/p remains > 160 administer Norvasc 2.5mg. Pt informed of new orders and Metoprolol was administered per orders.
--- NOTE | 2024-04-15 08:12 | W.PM.OPSUD ---
Surgery/Procedure H&P Update DATE OF PROCEDURE: April 15, 2024 DATE H&P PERFORMED: 04/12/24 H&P UPDATE INFORMATION: I have reviewed H&P completed within last 30 days, I have examined patient prior to procedure and No changes to prior documentation PREOP DIAGNOSIS: Pacemaker STANISLAW PRIMARY INDICATION FOR PROCEDURE: Patient with chronic atrial fibrillation, symptomatic bradycardia, pacemaker STANISLAW PLANNED PROCEDURE: Pacemaker revision PATIENT REASSESSED PRIOR TO SEDATION, WITH NO CHANGE NOTED: Yes PHYSICAL EXAM: alert, oriented x 3, clear to auscultation bilaterally and regular rate & rhythm AIRWAY EVAL/ANESTHESIA PLAN: normal airway, see other exam findings, ASA III, Monitored Anesthesia, Local Anesthesia, Risks, benefits & alternatives of sedation and/or procedure discussed and Patient agrees to continue as planned
--- NOTE | 2024-04-15 08:32 | P.PN_ITS ---
Subjective 2 Subjective: Patient is feeling okay. No fever, chills or cough. No dizziness or syncopal episodes. Telemetry showed 100% V paced rhythm. The heparin was discontinued last night. Medications: Medication Review Details: Current Medications Acetaminophen (Acetaminophen 325 Mg Tablet) 325 mg PO QID PRN PRN Reason: Pain (Scale Score 1-3) Amlodipine Besylate (Amlodipine 5 Mg Tablet) 5 mg PO BEDTIME [facility] Last Admin: 04/14/24 20:20 Dose: 5 mg Ascorbic Acid (Ascorbic Acid 500 Mg Tablet) 500 mg PO DAILY [facility] Last Admin: 04/14/24 09:30 Dose: 500 mg Bumetanide (Bumetanide 1 Mg Tablet) 1 mg PO BID [facility] Last Admin: 04/14/24 18:32 Dose: 1 mg Calcium Carbonate (Calcium Carb-Vit D 600mg/400unit 1 Tablet) 1 each PO DAILY [facility] Last Admin: 04/14/24 09:29 Dose: 1 each Cetirizine HCl (Cetirizine 10 Mg Tablet) 10 mg PO DAILY [facility] Last Admin: 04/14/24 20:20 Dose: 10 mg Diclofenac Sodium (Diclofenac 1% Topical Gel 100 Gm) 1 applic TOPICAL QID PRN PRN Reason: Pain (Scale Score 1-3) Docusate Sodium (Docusate Sodium 100 Mg Capsule) 100 mg PO DAILY [facility] Last Admin: 04/14/24 09:29 Dose: 100 mg Famotidine (Famotidine 20 Mg Tablet) 10 mg PO DAILY PRN PRN Reason: indigestion Fluticasone Propionate (Fluticasone Nasal [place] 16gm Btl) 2 spray INTRANASAL DAILY PRN PRN Reason: allergy symptoms Sodium Chloride (Sodium Chloride 0.9%) 1,000 mls @ 75 mls/hr IV .[id number] [facility] Lisinopril (Lisinopril 20 Mg Tablet) 20 mg PO BID [facility] Last Admin: 04/14/24 18:32 Dose: 20 mg Metoprolol Tartrate (Metoprolol Tartrate 25 Mg Tablet) 12.5 mg PO BID [facility] Last Admin: 04/15/24 04:42 Dose: 12.5 mg Montelukast Sodium (Montelukast Sodium 10 Mg Tablet) 10 mg PO QPM [facility] Last Admin: 04/14/24 20:20 Dose: 10 mg Non-Formulary Medication (Alprazolam) 0.125 mg PO BID PRN PRN Reason: anxiety [id number] Ethyl Esters ([place]-3 Fatty Acids 1,000 Mg Capsule) 1,000 mg PO DAILY [facility] Last Admin: 04/14/24 09:32 Dose: Not Given Potassium Chloride (Potassium Chloride Er 10 Meq Tablet) 10 meq PO BID [facility] Last Admin: 04/14/24 18:32 Dose: 10 meq Vitals/I&O/Wt Last Vital Signs Temp 98.6 F 04/15/24 04:00 Pulse 65 04/15/24 05:51 Resp 17 04/15/24 04:00 BP 134/72 04/15/24 05:51 Pulse Ox 96 04/15/24 04:00 O2 Del Method Room Air 04/15/24 04:00 04/14/24 04/15/24 04/15/24 22:59 06:59 14:59 Intake Total 577.067 / 969.851 360 / 1329.851 Balance 577.067 / 969.851 360 / 1329.851 Weight last 48 hrs Weight 179 lb 1.6 oz Weight 180 lb 6.4 oz Physical Exam 2 Narrative: GENERAL: The patient is alert and oriented times three. Not in any acute distress. HEENT: No significant pallor, icterus or lymphadenopathy.Oral cavity: There are no mucous membrane lesions. NECK: Trachea appears to be central. No masses noted. No JVD or thyromegaly appreciated. RESPIRATORY: Chest is symmetrical. No intercostals muscle retraction or any accessory muscle activation. There is no chest wall tenderness. Breath sounds are heard bilaterally. No rales or rhonchi heard. No evidence of any consolidation. BREASTS: Deferred. HEART: The aortic and mitral valve opening and closing sounds are normal. No S3 or S4. Short systolic murmur in the lower sternal border. No diastolic murmurs.. No pericardial rub ABDOMEN: No vessel pulsations or distention. No tenderness. No organomegaly appreciated. Bowel sounds are normally heard. : Deferred. RECTAL: Deferred. LYMPHATIC: No lymphadenopathy noted in the neck. EXTREMITIES: No edema or cyanosis. No clubbing. MUSCULOSKELETAL: No acute joint deformities or swelling SKIN: There are no significant rashes or ecchymosis NEUROPSYCHIATRIC: The patient is alert and oriented x3. Appears to be in a good mood. No tremors or rigidity noted. Data 04/12/24 17:23 04/12/24 17: Other Labs: Laboratory Last Values WBC 5.92 10^3/uL (3.29-11.43) 04/12/24 17: RBC 3.78 10^6/uL (3.85-5.65) L 04/12/24 17: Hgb 10.20 g/dL (11.27-16.99) L 04/12/24 17: Hct 32.8 % (36-47) L 04/12/24 17: MCV 86.8 fl (85-98) 04/12/24 17: MCH 27.0 pg (27-33) 04/12/24 17: MCHC 31.1 g/dL (30-55) 04/12/24 17: RDW 16.2 % (12.1-15.1) H 04/12/24 17: Plt Count 204 10^3/cmm (157-399) 04/12/24 17: MPV 10.1 fL (7.4-10.4) 04/12/24 17: Neut % (Auto) 74.1 % 04/12/24 17: Lymph % (Auto) 13.0 % 04/12/24 17: [place] % (Auto) 10.0 % 04/12/24 17: Eos % (Auto) 1.9 % 04/12/24 17:23 Baso % (Auto) 0.7 % 04/12/24 17: Neut # (Auto) 4.39 10^3/uL (1.8-7.7) 04/12/24 17: Lymph # (Auto) 0.8 10^3/uL (0.8-4.8) 04/12/24 17: [place] # (Auto) 0.6 10^3/uL (0.2-0.9) 04/12/24 17: Eos # (Auto) 0.1 10^3/uL (0.0-0.8) 04/12/24 17:23 Baso # (Auto) 0.0 10^3/uL (0.0-0.1) 04/12/24 17: Nucleated RBC % (auto) 0 % 04/12/24 17:23 Nucleated RBCs # 0.0 /100WBC 04/12/24 17:23 PT 14.50 SECONDS (12.1-14.9) 04/15/24 06:04 INR 1.10 (0.8-1.2) 04/15/24 06:04 APTT 32.0 SECONDS (23.9-36.7) 04/15/24 06:04 Sodium 136 mmol/L (136-145) 04/12/24 17:23 Potassium 4.3 mmol/L (3.5-5.1) 04/12/24 17:23 Chloride 97 mmol/L (98-107) L 04/12/24 17:23 Carbon Dioxide 29 mmol/L (22-29) 04/12/24 17:23 Anion Gap 14.3 (5-19) 04/12/24 17:23 BUN 37 mg/dL (8-23) H 04/12/24 17:23 Creatinine 1.0 mg/dL (0.5-0.9) H 04/12/24 17:23 GFR Calculation Not Reportable 04/12/24 17:23 Glucose 102 mg/dL (65-115) 04/12/24 17:23 Calculated Osmolality 291 mOsm/kg (285-295) 04/12/24 17:23 Calcium 9.7 mg/dL (8.5-10.5) 04/12/24 17:23 Total Bilirubin 0.4 mg/dL (0.15-1.2) 04/12/24 17:23 AST 21 U/L (0-32) 04/12/24 17:23 ALT 17 U/L (0-33) 04/12/24 17:23 Alkaline Phosphatase 107 U/L (35-105) H 04/12/24 17:23 Total Protein 7.9 g/dL (6.6-8.7) 04/12/24 17:23 Albumin 4.4 g/dL (3.5-5.2) 04/12/24 17:23 Globulin 3.5 g/dL (1.3-4.6) 04/12/24 17:23 A&P Assessment and plan (1) Pacemaker at end of battery life: This patient has a single-chamber device. The pacemaker was implanted on 02/20/2017. The device went into STANISLAW on 02/20/2024. The sensing and pacing function was found to be appropriate. Lead impedance also is good. We are planning to have the pacemaker revision on Monday morning. The need for the revision was discussed with the patient and her in detail. The risk of bleeding, hematoma, vascular injury, infection, renal failure and other concomitant complications were explained in detail. The patient [] understood this well and consented to proceed. Because the patient is intolerant to many medications, possible allergic reaction to the medication also were discussed. Even though she is allergic to penicillin, she is taking a third-generation cephalosporin (2) Aortic valve replaced: Patient had TAVR in 2009. 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 Continue on the current management (3) Mitral valve replaced: The initial mitral replacement was in 2001. This had a redo surgery in 2009?. (4) History of atrial fibrillation: Patient is in chronic atrial fibrillation and is on long-term oral anticoagulation. Patient has been off of the heparin for the last 4 days . The INR today is 1.1 (5) Multiple drug allergies: Patient is allergic to Lovenox. So for that reason, she was brought to the hospital for IV heparin. The heparin was discontinued last night. Plan Pacemaker revision today. Attestations 2 Medical Necessity Statement*: Patient requires continued hospital stay for close monitoring and further management Coding Level of Care Code 58195 Diagnoses Pacemaker at end of battery life Z45.010 Aortic valve replaced Z95.2 Mitral valve replaced Z95.2 History of atrial fibrillation Z86.79 Multiple drug allergies Z88.9
--- NOTE | 2024-04-15 09:29 | PM.OP ---
Operative Report Date of procedure: April 15, 2024 Surgeon: Zachariah Harris MD Procedure: PROCEDURE: PACEMAKER REVISION PREOPERATIVE DIAGNOSIS: Pacemaker elective replacement indication. POSTOPERATIVE DIAGNOSIS: Pacemaker elective replacement indication. ESTIMATED BLOOD LOSS: none COMPLICATIONS: None. BRIEF HISTORY: The patient is 74-year-old white female who had a permanent pacemaker implantation for symptomatic bradycardia/atrial fibrillation. The patient was found to have elective replacement indication, during routine office followup evaluation. For further management of patient's condition for the symptomatic bradycardia, the patient required a pacemaker revision. The procedure was explained to the patient and her in detail with the risks and benefits. The risks of bleeding, hematoma, vascular injury, infection and other concomitant complications were explained in detail, which the patient understood well and consented to proceed. PROCEDURES PERFORMED: 1. Explantation of the old pacemaker generator. 2. Implantation of the new generator. The patient brought to the [facility] [employer] (Ex ). The left side of the neck and the subclavian area were cleaned and draped in a sterile fashion. 1% Xylocaine was used for local anesthetic agent. A 2 inch long incision was made just below the previous pacemaker scar. By sharp and blunt dissection, the pacemaker pocket was accessed. The old generator was delivered from the pocket. The generator was detached from the lead. The new Medtronic generator was attached to the lead. The pacemaker pocket was copiously irrigated with vancomycin solution. Complete hemostasis was achieved. The lead was positioned behind the generator and the generator was attached to the pectoralis fascia by suturing with 0 Surgilon. Sponge counts were confirmed. The pacemaker pocket was closed in layers. Skin was approximated using 4-0 Vicryl. EXPLANTED DEVICE: Pacemaker Generator: Brand: Adapta. Model number: [id number] Serial number: [id number]. Date of implant: 02/20/2017 IMPLANTED DEVICES: Ventricular Lead: Date of implantation: 02/20/2017 Model number: [id number] Serial number: [id number] Make: Medtronic. Implanted Generator: Date of implantation : 04/15/2020 Brand: Ann XT SR MRI Surescan. Model number: W1 SR 01 Serial number: [id number] Make: Medtronic Stimulation Threshold: The ventricular sensing was 8.6 millivolts. Lead impedance was 475 and the pacing threshold was 1.0 volts at 0.4 milliseconds. The pacemaker was set for VVI mode with a lower rate of 60. A pressure dressing was applied over the pacemaker site. The patient was transferred back to medical floor in stable condition. Sponge counts were correct.
--- NOTE | 2024-04-15 09:40 | SUR.EXTENDED ---
Received the patient back from the tin can laborer s/p Pacemaker revision via wheelchair. Patient A & O x 3. Ambulated to the bed with ease. secured entrance monitor placed and vital signs obtained. Will transfer back to room 261 after recovery period. Family at bedside.
--- NOTE | 2024-04-15 10:15 | SUR.EXTENDED ---
Patient transferred via wheelchair to [facility] with family.
--- NOTE | 2024-04-15 10:39 | PC.CHAP ---
Pastoral Care Encounter/Spiritual Assessment Type of Contact [] Declined reservoir engineering manager visit [] Patient/Family/Request visit [] Outpatient visit [] Follow-up visit [] Physician referral [] Code/Alert [x] Routine visit [] Staff referral [] Actively dying [] Patient sleeping [] Family support [] [x] Out of room [] Palliative care [] [] Receiving care in room [] Pre-surgical visit [] Trauma [] Long length of stay [] ICU visit [] Other: Relational/Emotional Strength [] Patient feels connected with others/family/visitors/staff [] Distress [] Loneliness/isolation [] Abandonment Spirituality of Patient [] Person of Rosanna [] Attends Pentecostalism of their Rosanna [] Believes in Prayer [] Reads Bible or Presybeterian materials [] There are Spiritual issues to be addressed Core Shaper Interventions [] Prayer [] Active listening [] Non-anxious presence [] Spiritual/emotional support [] Crisis/trauma care [] Spiritual counseling [] Bereavement support [] Provided bereavement packet [] Provided Bible/devotional materials [] Provided toy/stuffed animal, coloring book to patient or family member [] Provided Communion [] Anointing/[place] [] Salvation [] Completed spiritual assessment [] Other: Impact on Illness or Injury [] Angry [] Fearful [] Anxious [] Often cries [] Exhaustion [] Unable to work [] Unable to attend mandaen [] Unable to walk/stand [] Unable to read [] Unable to drive [] Unable to eat/drink [] Unable to sleep [] Unable to be with family [] Patient intubated [] Other: Summary Time spent with patient
[2024-04-15] MEDS: calcium carb-vit d 600mg/400unit 1 Tablet 1 EACH PO (11:11)
[2024-04-15] MEDS: ascorbic acid 500 mg Tablet PO (11:11)
[2024-04-15] MEDS: potassium chloride ER 10 mEq Tablet PO ×2 (11:12→17:42)
[2024-04-15] MEDS: bumetanide 1 mg Tablet PO ×2 (11:12→17:44)
[2024-04-15] MEDS: lisinopril 20 mg Tablet PO ×2 (11:12→17:42)
[2024-04-15] MEDS: ALPRAZOLAM 0.25 MG 0.125 EACH PO (11:13)
[2024-04-15] MEDS: sodium chloride 0.9% 1,000 ML 75 ML IV ×2 (11:25→20:04)
--- NOTE | 2024-04-15 12:43 | PC.SOCIAL ---
IMM Updated Updated pt on IMM. No questions voiced. Provided pt a copy. Initialed, dated, & timed a copy & placed in chart.
[2024-04-15] MEDS: warfarin 5 mg Tablet PO (17:43)
[2024-04-15] MEDS: montelukast sodium 10 mg Tablet PO (17:43)
--- NOTE | 2024-04-15 19:20 | PC.NURSE ---
Heparin drip was not running upon my arrival on shift.
[2024-04-15] MEDS: amlodipine 5 mg Tablet PO (19:59)
[2024-04-15] MEDS: acetaminophen 325 mg Tablet PO (20:02)
[2024-04-16] VITALS (9 sets, daily range): BP systolic 125–146; BP diastolic 39–71; PULSE 60–72; RESP 15–19; TEMP 36.3–36.8; O2SAT 95–98
[2024-04-16] MEDS: vancomycin 1,000 MG in sodium chloride 0.9% 250 ML 250 MG IV (05:16)
--- NOTE | 2024-04-16 06:04 | ECG_ITS ---
[facility] Test Date: 2024-04-16 Pat Name: Richelle Klein Department: Room: 261 Gender: Female Crm Coordinator: : 1950 Requested By: Zachariah Harris Order Number: [id number] Peter MD: Hari Aragon M.D. Measurements Intervals [place] Rate: 63 P: 0 [place]: 0 QRS: 19 QRSD: 147 T: 10 QT: 426 QTc: 438 Interpretive Statements ELECTRONIC VENTRICULAR PACEMAKER -- CONTOUR ANALYSIS BASED ON INTRINSIC RHYTHM RIGHT BUNDLE BRANCH BLOCK [120+ ms QRS DURATION, UPRIGHT V1, 40+ ms S IN I/aVL/V4/V5/V6] MODERATE T-WAVE ABNORMALITY, CONSIDER LATERAL ISCHEMIA [-0.1+ mV T-WAVE IN I/aVL/V5/V6] Compared to ECG 04/12/2024 16:41:31 Right bundle-branch block now present T-wave abnormality now present Possible ischemia now present Electronically Signed On 04-16-2024 7:58:14 CDT by Hari Aragon M.D. [email or web address]
[2024-04-16 06:53] LABS: INR 1.11 (0.8-1.2)
[2024-04-16] MEDS: docusate sodium 100 mg Capsule PO (08:26)
[2024-04-16] MEDS: ALPRAZOLAM 0.25 MG 0.125 EACH PO (08:26)
[2024-04-16] MEDS: cetirizine 10 mg Tablet PO (08:26)
[2024-04-16] MEDS: bumetanide 1 mg Tablet PO ×2 (08:26→17:11)
[2024-04-16] MEDS: ascorbic acid 500 mg Tablet PO (08:26)
[2024-04-16] MEDS: metoprolol tartrate 25 mg Tablet 12.5 MG PO ×2 (08:26→17:11)
[2024-04-16] MEDS: calcium carb-vit d 600mg/400unit 1 Tablet 1 EACH PO (08:26)
[2024-04-16] MEDS: lisinopril 20 mg Tablet PO ×2 (08:26→17:11)
[2024-04-16] MEDS: potassium chloride ER 10 mEq Tablet PO ×2 (08:26→17:11)
[2024-04-16] MEDS: sodium chloride 0.9% 1,000 ML 75 ML IV ×2 (08:34→20:40)
--- NOTE | 2024-04-16 09:39 | PC.NURSE ---
Per Dr. Harris Rate of Heparin to start at prior dose of 16mL per hour.
[2024-04-16] MEDS: cephALEXin 500 mg Capsule PO ×4 (10:31→20:40)
[2024-04-16] MEDS: heparin drip 25,000 UNIT/500 ML PREMIX 16 UNIT IV (10:36)
[2024-04-16] MEDS: warfarin 5 mg Tablet PO (14:36)
[2024-04-16 16:56] LABS: Partial Thromboplastin Time 59.8 SECONDS (23.9-36.7)
[2024-04-16] MEDS: amlodipine 5 mg Tablet PO (20:40)
--- NOTE | 2024-04-16 22:04 | P.PN_ITS ---
Subjective 2 Subjective: The patient is doing okay. Her pacemaker was interrogated this morning and was found to be functioning okay. She has no hematoma bleeding from the pacemaker site. Medications: Medication Review Details: Current Medications Acetaminophen (Acetaminophen 325 Mg Tablet) 325 mg PO QID PRN PRN Reason: Pain (Scale Score 1-3) Last Admin: 04/15/24 20:02 Dose: 325 mg Amlodipine Besylate (Amlodipine 5 Mg Tablet) 5 mg PO BEDTIME [facility] Last Admin: 04/16/24 20:40 Dose: 5 mg Ascorbic Acid (Ascorbic Acid 500 Mg Tablet) 500 mg PO DAILY [facility] Last Admin: 04/16/24 08:26 Dose: 500 mg Bumetanide (Bumetanide 1 Mg Tablet) 1 mg PO BID [facility] Last Admin: 04/16/24 17:11 Dose: 1 mg Calcium Carbonate (Calcium Carb-Vit D 600mg/400unit 1 Tablet) 1 each PO DAILY [facility] Last Admin: 04/16/24 08:26 Dose: 1 each Cephalexin HCl (Cephalexin 500 Mg Capsule) 500 mg PO QID [facility]; Protocol Last Admin: 04/16/24 20:40 Dose: 500 mg Cetirizine HCl (Cetirizine 10 Mg Tablet) 10 mg PO DAILY [facility] Last Admin: 04/16/24 08:26 Dose: 10 mg Diclofenac Sodium (Diclofenac 1% Topical Gel 100 Gm) 1 applic TOPICAL QID PRN PRN Reason: Pain (Scale Score 1-3) Docusate Sodium (Docusate Sodium 100 Mg Capsule) 100 mg PO DAILY [facility] Last Admin: 04/16/24 08:26 Dose: 100 mg Famotidine (Famotidine 20 Mg Tablet) 10 mg PO DAILY PRN PRN Reason: indigestion Fluticasone Propionate (Fluticasone Nasal [place] 16gm Btl) 2 spray INTRANASAL DAILY PRN PRN Reason: allergy symptoms Sodium Chloride (Sodium Chloride 0.9%) 1,000 mls @ 75 mls/hr IV .[id number] [facility] Last Admin: 04/16/24 20:40 Dose: 75 mls/hr Heparin Sodium/Sodium Chloride (Heparin Drip) 25,000 unit in 500 mls @ 0 mls/hr IV CONT [facility]; Protocol Last Titration: 04/16/24 17:16 Dose: 9.26 unit/kg/hr, 16 mls/hr Lisinopril (Lisinopril 20 Mg Tablet) 20 mg PO BID [facility] Last Admin: 04/16/24 17:11 Dose: 20 mg Metoprolol Tartrate (Metoprolol Tartrate 25 Mg Tablet) 12.5 mg PO BID [facility] Last Admin: 04/16/24 17:11 Dose: 12.5 mg Montelukast Sodium (Montelukast Sodium 10 Mg Tablet) 10 mg PO QPM [facility] Last Admin: 04/16/24 17:10 Dose: Not Given Non-Formulary Medication (Alprazolam) 0.125 mg PO BID PRN PRN Reason: anxiety Last Admin: 04/16/24 08:26 Dose: 0.125 mg Lrvbh-2-Ipsr Ethyl Esters ([place]-3 Fatty Acids 1,000 Mg Capsule) 1,000 mg PO DAILY [facility] Last Admin: 04/16/24 08:22 Dose: Not Given Potassium Chloride (Potassium Chloride Er 10 Meq Tablet) 10 meq PO BID [facility] Last Admin: 04/16/24 17:11 Dose: 10 meq Warfarin Sodium (Warfarin 5 Mg Tablet) 5 mg PO DAILY@1400 [facility] Last Admin: 04/16/24 14:36 Dose: 5 mg Vitals/I&O/Wt Last Vital Signs Temp 98.0 F 04/16/24 19:57 Pulse 60 04/16/24 21:32 Resp 16 04/16/24 19:57 BP 135/71 04/16/24 19:57 Pulse Ox 95 04/16/24 19:57 O2 Del Method Room Air 04/16/24 19:57 04/16/24 04/16/24 04/16/24 06:59 14:59 22:59 Intake Total 250 / 1258.75 1177.5 / 1177.5 1494.167 / 2671.667 Balance 250 / 1258.75 1177.5 / 1177.5 1494.167 / 2671.667 Weight last 48 hrs Weight 190 lb 6.4 oz Weight 179 lb 1.6 oz Physical Exam 2 Narrative: GENERAL: The patient is alert and oriented times three. Not in any acute distress. HEENT: No significant pallor, icterus or lymphadenopathy.Oral cavity: There are no mucous membrane lesions. NECK: Trachea appears to be central. No masses noted. No JVD or thyromegaly appreciated. RESPIRATORY: Chest is symmetrical. No intercostals muscle retraction or any accessory muscle activation. There is no chest wall tenderness. Breath sounds are heard bilaterally. No rales or rhonchi heard. No evidence of any consolidation. BREASTS: Deferred. HEART: The aortic and mitral valve opening and closing sounds are normal. No S3 or S4. Short systolic murmur in the lower sternal border. No diastolic murmurs.. No pericardial rub ABDOMEN: No vessel pulsations or distention. No tenderness. No organomegaly appreciated. Bowel sounds are normally heard. : Deferred. RECTAL: Deferred. LYMPHATIC: No lymphadenopathy noted in the neck. EXTREMITIES: No edema or cyanosis. No clubbing. MUSCULOSKELETAL: No acute joint deformities or swelling SKIN: There are no significant rashes or ecchymosis NEUROPSYCHIATRIC: The patient is alert and oriented x3. Appears to be in a good mood. No tremors or rigidity noted. Data 04/12/24 17:23 04/12/24 17:23 Other Labs: Laboratory Last Values WBC 5.92 10^3/uL (3.29-11.43) 04/12/24 17: RBC 3.78 10^6/uL (3.85-5.65) L 04/12/24 17:23 Hgb 10.20 g/dL (11.27-16.99) L 04/12/24 17:23 Hct 32.8 % (36-47) L 04/12/24 17:23 MCV 86.8 fl (85-98) 04/12/24 17: MCH 27.0 pg (27-33) 04/12/24 17: MCHC 31.1 g/dL (30-55) 04/12/24 17: RDW 16.2 % (12.1-15.1) H 04/12/24 17:23 Plt Count 204 10^3/cmm (157-399) 04/12/24 17: MPV 10.1 fL (7.4-10.4) 04/12/24 17: Neut % (Auto) 74.1 % 04/12/24 17: Lymph % (Auto) 13.0 % 04/12/24 17: [place] % (Auto) 10.0 % 04/12/24 17: Eos % (Auto) 1.9 % 04/12/24 17:23 Baso % (Auto) 0.7 % 04/12/24 17:23 Neut # (Auto) 4.39 10^3/uL (1.8-7.7) 04/12/24 17: Lymph # (Auto) 0.8 10^3/uL (0.8-4.8) 04/12/24 17:23 [place] # (Auto) 0.6 10^3/uL (0.2-0.9) 04/12/24 17: Eos # (Auto) 0.1 10^3/uL (0.0-0.8) 04/12/24 17: Baso # (Auto) 0.0 10^3/uL (0.0-0.1) 04/12/24 17: Nucleated RBC % (auto) 0 % 04/12/24 17: Nucleated RBCs # 0.0 /100WBC 04/12/24 17:23 PT 14.70 SECONDS (12.1-14.9) 04/16/24 06:17 INR 1.11 (0.8-1.2) 04/16/24 06:17 APTT 59.8 SECONDS (23.9-36.7) H 04/16/24 16:40 Sodium 136 mmol/L (136-145) 04/12/24 17:23 Potassium 4.3 mmol/L (3.5-5.1) 04/12/24 17:23 Chloride 97 mmol/L (98-107) L 04/12/24 17:23 Carbon Dioxide 29 mmol/L (22-29) 04/12/24 17:23 Anion Gap 14.3 (5-19) 04/12/24 17:23 BUN 37 mg/dL (8-23) H 04/12/24 17:23 Creatinine 1.0 mg/dL (0.5-0.9) H 04/12/24 17:23 GFR Calculation Not Reportable 04/12/24 17:23 Glucose 102 mg/dL (65-115) 04/12/24 17:23 Calculated Osmolality 291 mOsm/kg (285-295) 04/12/24 17:23 Calcium 9.7 mg/dL (8.5-10.5) 04/12/24 17:23 Total Bilirubin 0.4 mg/dL (0.15-1.2) 04/12/24 17:23 AST 21 U/L (0-32) 04/12/24 17:23 ALT 17 U/L (0-33) 04/12/24 17:23 Alkaline Phosphatase 107 U/L (35-105) H 04/12/24 17:23 Total Protein 7.9 g/dL (6.6-8.7) 04/12/24 17:23 Albumin 4.4 g/dL (3.5-5.2) 04/12/24 17:23 Globulin 3.5 g/dL (1.3-4.6) 04/12/24 17:23 A&P Assessment and plan (1) 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 Currently she is doing okay. Since she is not able to take the Lovenox, we will start her on IV heparin. She was started on Coumadin yesterday. Will do daily INR, from tomorrow onwards She received vancomycin prophylactically. I may start her on Keflex 500 mg p.o. every 6 hours from today onwards. (2) Aortic valve replaced: Patient had TAVR in 2009. 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 Continue on the current management (3) Mitral valve replaced: The initial mitral replacement was in 2001. This had a redo surgery in 2009?. Will continue on the current treatment measures. (4) History of atrial fibrillation: Patient is in chronic atrial fibrillation and is on long-term oral anticoagulation. Coumadin was restarted yesterday. Repeat INR in the morning. (5) Multiple drug allergies: Patient is allergic to Lovenox. So for that reason, she was brought to the hospital for IV heparin. Heparin will be restarted today. Dose will be adjusted as per protocol Plan Continue the heparin as mentioned above. INR in the morning. Based on the clinical progress, further Management decisions will be made Attestations 2 Medical Necessity Statement*: Patient requires continued hospital stay for close monitoring and further management Coding Level of Care Code Acute Code for Chg Fwd Diagnoses Pacemaker at end of battery life Z45.010 Aortic valve replaced Z95.2 Mitral valve replaced Z95.2 History of atrial fibrillation Z86.79 Multiple drug allergies Z88.9
[2024-04-17] VITALS (8 sets, daily range): BP systolic 116–146; BP diastolic 50–72; PULSE 60–73; RESP 17–18; TEMP 36.4–36.9; O2SAT 95–96
[2024-04-17 00:27] LABS: Partial Thromboplastin Time 85.1 SECONDS (23.9-36.7)
--- NOTE | 2024-04-17 05:33 | PC.NURSE ---
Addendum entered by Ping Carter RN 04/17/24 05:34: At beginning of shift, there was bruising noted around site, which is still noted, but has not appeared to get any larger. Original Note: Surgical site to left chest checked multiple times throughout shift per Dr. Harris.
[2024-04-17] MEDS: cephALEXin 500 mg Capsule PO ×4 (08:13→20:20)
[2024-04-17] MEDS: cetirizine 10 mg Tablet PO (08:13)
[2024-04-17] MEDS: metoprolol tartrate 25 mg Tablet 12.5 MG PO ×2 (08:14→17:44)
[2024-04-17] MEDS: bumetanide 1 mg Tablet PO ×2 (08:14→17:45)
[2024-04-17] MEDS: lisinopril 20 mg Tablet PO ×2 (08:14→17:45)
[2024-04-17] MEDS: potassium chloride ER 10 mEq Tablet PO ×2 (08:14→17:45)
[2024-04-17] MEDS: ascorbic acid 500 mg Tablet PO (08:14)
[2024-04-17] MEDS: calcium carb-vit d 600mg/400unit 1 Tablet 1 EACH PO (08:14)
[2024-04-17] MEDS: docusate sodium 100 mg Capsule PO (08:14)
[2024-04-17 08:46] LABS: Partial Thromboplastin Time 68.9 SECONDS (23.9-36.7)
[2024-04-17] MEDS: heparin drip 25,000 UNIT/500 ML PREMIX 13 UNIT IV (09:04)
[2024-04-17] MEDS: sodium chloride 0.9% 1,000 ML 75 ML IV ×2 (09:08→22:50)
[2024-04-17 09:31] LABS: INR 1.23 (0.8-1.2)
--- NOTE | 2024-04-17 13:14 | PC.SOCIAL ---
IMM Updated Updated pt on IMM. No questions voiced. Provided pt a copy. Initialed, dated, & timed copy in chart.
[2024-04-17] MEDS: warfarin 5 mg Tablet PO (14:00)
[2024-04-17 15:44] LABS: INR 1.23 (0.8-1.2)
[2024-04-17 15:46] LABS: Partial Thromboplastin Time 60.4 SECONDS (23.9-36.7)
--- NOTE | 2024-04-17 17:03 | P.PN_ITS ---
Subjective 2 Subjective: He is doing okay. No hematoma at the pacemaker revision site. Each she is on IV heparin INR is 1.3 today Medications: Medication Review Details: Current Medications Acetaminophen (Acetaminophen 325 Mg Tablet) 325 mg PO QID PRN PRN Reason: Pain (Scale Score 1-3) Last Admin: 04/15/24 20:02 Dose: 325 mg Amlodipine Besylate (Amlodipine 5 Mg Tablet) 5 mg PO BEDTIME [facility] Last Admin: 04/16/24 20:40 Dose: 5 mg Ascorbic Acid (Ascorbic Acid 500 Mg Tablet) 500 mg PO DAILY [facility] Last Admin: 04/17/24 08:14 Dose: 500 mg Bumetanide (Bumetanide 1 Mg Tablet) 1 mg PO BID [facility] Last Admin: 04/17/24 08:14 Dose: 1 mg Calcium Carbonate (Calcium Carb-Vit D 600mg/400unit 1 Tablet) 1 each PO DAILY [facility] Last Admin: 04/17/24 08:14 Dose: 1 each Cephalexin HCl (Cephalexin 500 Mg Capsule) 500 mg PO QID [facility]; Protocol Last Admin: 04/17/24 12:55 Dose: 500 mg Cetirizine HCl (Cetirizine 10 Mg Tablet) 10 mg PO DAILY [facility] Last Admin: 04/17/24 08:13 Dose: 10 mg Diclofenac Sodium (Diclofenac 1% Topical Gel 100 Gm) 1 applic TOPICAL QID PRN PRN Reason: Pain (Scale Score 1-3) Docusate Sodium (Docusate Sodium 100 Mg Capsule) 100 mg PO DAILY [facility] Last Admin: 04/17/24 08:14 Dose: 100 mg Famotidine (Famotidine 20 Mg Tablet) 10 mg PO DAILY PRN PRN Reason: indigestion Fluticasone Propionate (Fluticasone Nasal [place] 16gm Btl) 2 spray INTRANASAL DAILY PRN PRN Reason: allergy symptoms Sodium Chloride (Sodium Chloride 0.9%) 1,000 mls @ 75 mls/hr IV .[id number] [facility] Last Admin: 04/17/24 09:08 Dose: 75 mls/hr Heparin Sodium/Sodium Chloride (Heparin Drip) 25,000 unit in 500 mls @ 0 mls/hr IV CONT [facility]; Protocol Last Titration: 04/17/24 16:35 Dose: 7.53 unit/kg/hr, 13 mls/hr Lisinopril (Lisinopril 20 Mg Tablet) 20 mg PO BID [facility] Last Admin: 04/17/24 08:14 Dose: 20 mg Metoprolol Tartrate (Metoprolol Tartrate 25 Mg Tablet) 12.5 mg PO BID [facility] Last Admin: 04/17/24 08:14 Dose: 12.5 mg Montelukast Sodium (Montelukast Sodium 10 Mg Tablet) 10 mg PO QPM [facility] Last Admin: 04/16/24 17:10 Dose: Not Given Non-Formulary Medication (Alprazolam) 0.125 mg PO BID PRN PRN Reason: anxiety Last Admin: 04/16/24 08:26 Dose: 0.125 mg [place]-9-Phuo Ethyl Esters ([place]-3 Fatty Acids 1,000 Mg Capsule) 1,000 mg PO DAILY [facility] Last Admin: 04/17/24 08:15 Dose: Not Given Potassium Chloride (Potassium Chloride Er 10 Meq Tablet) 10 meq PO BID [facility] Last Admin: 04/17/24 08:14 Dose: 10 meq Warfarin Sodium (Warfarin 5 Mg Tablet) 5 mg PO DAILY@1400 [facility] Last Admin: 04/17/24 14:00 Dose: 5 mg Vitals/I&O/Wt Last Vital Signs Temp 98.2 F 04/17/24 16:00 Pulse 73 04/17/24 16:43 Resp 18 04/17/24 16:00 BP 146/65 04/17/24 16:00 Pulse Ox 96 04/17/24 16:00 O2 Del Method Room Air 04/17/24 16:00 04/17/24 04/17/24 04/17/24 06:59 14:59 22:59 Intake Total 467.6 / 3139.267 1744.85 / 1744.85 97.717 / 1842.567 Balance 467.6 / 3139.267 1744.85 / 1744.85 97.717 / 1842.567 Weight last 48 hrs Weight 197 lb 9.6 oz Weight 190 lb 6.4 oz Physical Exam 2 Narrative: GENERAL: The patient is alert and oriented times three. Not in any acute distress. HEENT: No significant pallor, icterus or lymphadenopathy.Oral cavity: There are no mucous membrane lesions. NECK: Trachea appears to be central. No masses noted. No JVD or thyromegaly appreciated. RESPIRATORY: Chest is symmetrical. No intercostals muscle retraction or any accessory muscle activation. There is no chest wall tenderness. Breath sounds are heard bilaterally. No rales or rhonchi heard. No evidence of any consolidation. BREASTS: Deferred. HEART: The aortic and mitral valve opening and closing sounds are normal. No S3 or S4. Short systolic murmur in the lower sternal border. No diastolic murmurs.. No pericardial rub ABDOMEN: No vessel pulsations or distention. No tenderness. No organomegaly appreciated. Bowel sounds are normally heard. : Deferred. RECTAL: Deferred. LYMPHATIC: No lymphadenopathy noted in the neck. EXTREMITIES: No edema or cyanosis. No clubbing. MUSCULOSKELETAL: No acute joint deformities or swelling SKIN: There are no significant rashes or ecchymosis NEUROPSYCHIATRIC: The patient is alert and oriented x3. Appears to be in a good mood. No tremors or rigidity noted. Data 04/12/24 17:23 04/12/24 17:23 Other Labs: Laboratory Last Values WBC 5.92 10^3/uL (3.29-11.43) 04/12/24 17: RBC 3.78 10^6/uL (3.85-5.65) L 04/12/24 17:23 Hgb 10.20 g/dL (11.27-16.99) L 04/12/24 17:23 Hct 32.8 % (36-47) L 04/12/24 17:23 MCV 86.8 fl (85-98) 04/12/24 17: MCH 27.0 pg (27-33) 04/12/24 17: MCHC 31.1 g/dL (30-55) 04/12/24 17: RDW 16.2 % (12.1-15.1) H 04/12/24 17:23 Plt Count 204 10^3/cmm (157-399) 04/12/24 17: MPV 10.1 fL (7.4-10.4) 04/12/24 17: Neut % (Auto) 74.1 % 04/12/24 17: Lymph % (Auto) 13.0 % 04/12/24 17: [place] % (Auto) 10.0 % 04/12/24 17: Eos % (Auto) 1.9 % 04/12/24 17:23 Baso % (Auto) 0.7 % 04/12/24 17:23 Neut # (Auto) 4.39 10^3/uL (1.8-7.7) 04/12/24 17:23 Lymph # (Auto) 0.8 10^3/uL (0.8-4.8) 04/12/24 17:23 [place] # (Auto) 0.6 10^3/uL (0.2-0.9) 04/12/24 17:23 Eos # (Auto) 0.1 10^3/uL (0.0-0.8) 04/12/24 17:23 Baso # (Auto) 0.0 10^3/uL (0.0-0.1) 04/12/24 17: Nucleated RBC % (auto) 0 % 04/12/24 17: Nucleated RBCs # 0.0 /100WBC 04/12/24 17:23 PT 15.90 SECONDS (12.1-14.9) H 04/17/24 15:20 INR 1.23 (0.8-1.2) H 04/17/24 15:20 APTT 60.4 SECONDS (23.9-36.7) H 04/17/24 15:20 Sodium 136 mmol/L (136-145) 04/12/24 17:23 Potassium 4.3 mmol/L (3.5-5.1) 04/12/24 17:23 Chloride 97 mmol/L (98-107) L 04/12/24 17:23 Carbon Dioxide 29 mmol/L (22-29) 04/12/24 17:23 Anion Gap 14.3 (5-19) 04/12/24 17:23 BUN 37 mg/dL (8-23) H 04/12/24 17:23 Creatinine 1.0 mg/dL (0.5-0.9) H 04/12/24 17:23 GFR Calculation Not Reportable 04/12/24 17:23 Glucose 102 mg/dL (65-115) 04/12/24 17:23 Calculated Osmolality 291 mOsm/kg (285-295) 04/12/24 17:23 Calcium 9.7 mg/dL (8.5-10.5) 04/12/24 17:23 Total Bilirubin 0.4 mg/dL (0.15-1.2) 04/12/24 17:23 AST 21 U/L (0-32) 04/12/24 17:23 ALT 17 U/L (0-33) 04/12/24 17:23 Alkaline Phosphatase 107 U/L (35-105) H 04/12/24 17:23 Total Protein 7.9 g/dL (6.6-8.7) 04/12/24 17:23 Albumin 4.4 g/dL (3.5-5.2) 04/12/24 17:23 Globulin 3.5 g/dL (1.3-4.6) 04/12/24 17:23 A&P Assessment and plan (1) Pacemaker at end of battery life: Status post pacemaker revision, currently seems to be stable. No hematoma at the pacemaker pocket (2) Aortic valve replaced: Patient had TAVR in 2009. 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 Continue on the current management (3) Mitral valve replaced: The initial mitral replacement was in 2001. This had a redo surgery in 2009?. Will continue on the current treatment measures. (4) History of atrial fibrillation: Patient is on Coumadin and IV heparin. INR is subtherapeutic (5) Multiple drug allergies: Patient is allergic to Lovenox. So for that reason, she was brought to the hospital for IV heparin. Heparin will be restarted today. Dose will be adjusted as per protocol Plan Continue the heparin as mentioned above. INR in the morning. Based on the clinical progress, further Management decisions will be made Attestations 2 Medical Necessity Statement*: Patient requires continued hospital stay for close monitoring and further management Coding Level of Care Code 44090 Diagnoses Pacemaker at end of battery life Z45.010 Aortic valve replaced Z95.2 Mitral valve replaced Z95.2 History of atrial fibrillation Z86.79 Multiple drug allergies Z88.9
[2024-04-17] MEDS: amlodipine 5 mg Tablet PO (20:20)
[2024-04-17 22:25] LABS: INR 1.28 (0.8-1.2)
[2024-04-17 22:26] LABS: Partial Thromboplastin Time 52.8 SECONDS (23.9-36.7)
[2024-04-18] VITALS (9 sets, daily range): BP systolic 119–149; BP diastolic 55–68; PULSE 60–83; RESP 16–18; TEMP 36.4–37; O2SAT 93–98
[2024-04-18 03:30] LABS: Platelet Count 142 10^3/cmm (157-399)
[2024-04-18 03:45] LABS: Partial Thromboplastin Time 76.6 SECONDS (23.9-36.7)
[2024-04-18 06:38] LABS: INR 1.32 (0.8-1.2)
[2024-04-18] MEDS: calcium carb-vit d 600mg/400unit 1 Tablet 1 EACH PO (09:12)
[2024-04-18] MEDS: docusate sodium 100 mg Capsule PO (09:12)
[2024-04-18] MEDS: lisinopril 20 mg Tablet PO ×2 (09:12→17:25)
[2024-04-18] MEDS: bumetanide 1 mg Tablet PO ×2 (09:12→17:25)
[2024-04-18] MEDS: metoprolol tartrate 25 mg Tablet 12.5 MG PO ×2 (09:12→17:25)
[2024-04-18] MEDS: cetirizine 10 mg Tablet PO (09:12)
[2024-04-18] MEDS: ascorbic acid 500 mg Tablet PO (09:12)
[2024-04-18] MEDS: cephALEXin 500 mg Capsule PO ×3 (09:12→17:25)
[2024-04-18] MEDS: potassium chloride ER 10 mEq Tablet PO ×2 (09:12→17:25)
[2024-04-18] MEDS: ALPRAZOLAM 0.25 MG 0.125 EACH PO (09:21)
[2024-04-18 11:03] LABS: Partial Thromboplastin Time 55.6 SECONDS (23.9-36.7)
[2024-04-18] MEDS: sodium chloride 0.9% 1,000 ML 75 ML IV (11:37)
[2024-04-18] MEDS: warfarin 5 mg Tablet PO (13:47)
[2024-04-18] MEDS: montelukast sodium 10 mg Tablet PO (17:25)
[2024-04-18 18:04] LABS: Partial Thromboplastin Time 54.6 SECONDS (23.9-36.7)
[2024-04-18] MEDS: amlodipine 5 mg Tablet PO (21:33)
--- NOTE | 2024-04-18 21:37 | P.PN_ITS ---
Subjective 2 Subjective: Patient is feeling okay. She is tolerating the IV heparin and p.o. Keflex. No chest pain or shortness of breath. Pacemaker site has no hematoma or bleeding. Medications: Medication Review Details: Current Medications Acetaminophen (Acetaminophen 325 Mg Tablet) 325 mg PO QID PRN PRN Reason: Pain (Scale Score 1-3) Last Admin: 04/15/24 20:02 Dose: 325 mg Amlodipine Besylate (Amlodipine 5 Mg Tablet) 5 mg PO BEDTIME [facility] Last Admin: 04/18/24 21:33 Dose: 5 mg Ascorbic Acid (Ascorbic Acid 500 Mg Tablet) 500 mg PO DAILY [facility] Last Admin: 04/18/24 09:12 Dose: 500 mg Bumetanide (Bumetanide 1 Mg Tablet) 1 mg PO BID [facility] Last Admin: 04/18/24 17:25 Dose: 1 mg Calcium Carbonate (Calcium Carb-Vit D 600mg/400unit 1 Tablet) 1 each PO DAILY [facility] Last Admin: 04/18/24 09:12 Dose: 1 each Cephalexin HCl (Cephalexin 500 Mg Capsule) 500 mg PO QID [facility]; Protocol Last Admin: 04/18/24 21:33 Dose: Not Given Cetirizine HCl (Cetirizine 10 Mg Tablet) 10 mg PO DAILY [facility] Last Admin: 04/18/24 09:12 Dose: 10 mg Diclofenac Sodium (Diclofenac 1% Topical Gel 100 Gm) 1 applic TOPICAL QID PRN PRN Reason: Pain (Scale Score 1-3) Docusate Sodium (Docusate Sodium 100 Mg Capsule) 100 mg PO DAILY [facility] Last Admin: 04/18/24 09:12 Dose: 100 mg Famotidine (Famotidine 20 Mg Tablet) 10 mg PO DAILY PRN PRN Reason: indigestion Fluticasone Propionate (Fluticasone Nasal [place] 16gm Btl) 2 spray INTRANASAL DAILY PRN PRN Reason: allergy symptoms Sodium Chloride (Sodium Chloride 0.9%) 1,000 mls @ 75 mls/hr IV .[id number] [facility] Last Admin: 04/18/24 11:37 Dose: 75 mls/hr Heparin Sodium/Sodium Chloride (Heparin Drip) 25,000 unit in 500 mls @ 0 mls/hr IV CONT [facility]; Protocol Last Titration: 04/18/24 18:52 Dose: 7.53 unit/kg/hr, 13 mls/hr Lisinopril (Lisinopril 20 Mg Tablet) 20 mg PO BID [facility] Last Admin: 04/18/24 17:25 Dose: 20 mg Metoprolol Tartrate (Metoprolol Tartrate 25 Mg Tablet) 12.5 mg PO BID [facility] Last Admin: 04/18/24 17:25 Dose: 12.5 mg Montelukast Sodium (Montelukast Sodium 10 Mg Tablet) 10 mg PO QPM [facility] Last Admin: 04/18/24 17:25 Dose: 10 mg Non-Formulary Medication (Alprazolam) 0.125 mg PO BID PRN PRN Reason: anxiety Last Admin: 04/18/24 09:21 Dose: 0.125 mg [id number] Ethyl Esters ([place]-3 Fatty Acids 1,000 Mg Capsule) 1,000 mg PO DAILY [facility] Last Admin: 04/18/24 09:11 Dose: Not Given Potassium Chloride (Potassium Chloride Er 10 Meq Tablet) 10 meq PO BID [facility] Last Admin: 04/18/24 17:25 Dose: 10 meq Warfarin Sodium (Warfarin 5 Mg Tablet) 5 mg PO DAILY@1400 [facility] Last Admin: 04/18/24 13:47 Dose: 5 mg Vitals/I&O/Wt Last Vital Signs Temp 98.4 F 04/18/24 20:00 Pulse 60 04/18/24 20:00 Resp 17 04/18/24 20:00 BP 138/68 04/18/24 20:00 Pulse Ox 95 04/18/24 20:00 O2 Del Method Room Air 04/18/24 20:00 04/18/24 04/18/24 04/18/24 06:59 14:59 22:59 Intake Total 67.167 / 3338.167 1522.167 / 1522.167 282.5 / 1804.667 Balance 67.167 / 3338.167 1522.167 / 1522.167 282.5 / 1804.667 Weight last 48 hrs Weight 206 lb 9 oz Weight 197 lb 9.6 oz Physical Exam 2 Narrative: GENERAL: The patient is alert and oriented times three. Not in any acute distress. HEENT: No significant pallor, icterus or lymphadenopathy.Oral cavity: There are no mucous membrane lesions. NECK: Trachea appears to be central. No masses noted. No JVD or thyromegaly appreciated. RESPIRATORY: Chest is symmetrical. No intercostals muscle retraction or any accessory muscle activation. There is no chest wall tenderness. Breath sounds are heard bilaterally. No rales or rhonchi heard. No evidence of any consolidation. The pacemaker site has no hematoma or bleeding BREASTS: Deferred. HEART: The aortic and mitral valve opening and closing sounds are normal. No S3 or S4. Short systolic murmur in the lower sternal border. No diastolic murmurs.. No pericardial rub ABDOMEN: No vessel pulsations or distention. No tenderness. No organomegaly appreciated. Bowel sounds are normally heard. : Deferred. RECTAL: Deferred. LYMPHATIC: No lymphadenopathy noted in the neck. EXTREMITIES: No edema or cyanosis. No clubbing. MUSCULOSKELETAL: No acute joint deformities or swelling SKIN: There are no significant rashes or ecchymosis NEUROPSYCHIATRIC: The patient is alert and oriented x3. Appears to be in a good mood. No tremors or rigidity noted. Data 04/18/24 03:17 04/12/24 17:23 Other Labs: Laboratory Last Values WBC 5.92 10^3/uL (3.29-11.43) 04/12/24 17:23 RBC 3.78 10^6/uL (3.85-5.65) L 04/12/24 17:23 Hgb 10.20 g/dL (11.27-16.99) L 04/12/24 17:23 Hct 32.8 % (36-47) L 04/12/24 17:23 MCV 86.8 fl (85-98) 04/12/24 17: MCH 27.0 pg (27-33) 04/12/24 17: MCHC 31.1 g/dL (30-55) 04/12/24 17:23 RDW 16.2 % (12.1-15.1) H 04/12/24 17:23 Plt Count 142 10^3/cmm (157-399) L 04/18/24 03:17 MPV 10.1 fL (7.4-10.4) 04/12/24 17:23 Neut % (Auto) 74.1 % 04/12/24 17:23 Lymph % (Auto) 13.0 % 04/12/24 17: [place] % (Auto) 10.0 % 04/12/24 17:23 Eos % (Auto) 1.9 % 04/12/24 17:23 Baso % (Auto) 0.7 % 04/12/24 17:23 Neut # (Auto) 4.39 10^3/uL (1.8-7.7) 04/12/24 17:23 Lymph # (Auto) 0.8 10^3/uL (0.8-4.8) 04/12/24 17:23 [place] # (Auto) 0.6 10^3/uL (0.2-0.9) 04/12/24 17:23 Eos # (Auto) 0.1 10^3/uL (0.0-0.8) 04/12/24 17:23 Baso # (Auto) 0.0 10^3/uL (0.0-0.1) 04/12/24 17:23 Nucleated RBC % (auto) 0 % 04/12/24 17:23 Nucleated RBCs # 0.0 /100WBC 04/12/24 17:23 PT 16.80 SECONDS (12.1-14.9) H 04/18/24 05:56 INR 1.32 (0.8-1.2) H 04/18/24 05:56 APTT 54.6 SECONDS (23.9-36.7) H 04/18/24 17:35 Sodium 136 mmol/L (136-145) 04/12/24 17:23 Potassium 4.3 mmol/L (3.5-5.1) 04/12/24 17:23 Chloride 97 mmol/L (98-107) L 04/12/24 17:23 Carbon Dioxide 29 mmol/L (22-29) 04/12/24 17:23 Anion Gap 14.3 (5-19) 04/12/24 17:23 BUN 37 mg/dL (8-23) H 04/12/24 17:23 Creatinine 1.0 mg/dL (0.5-0.9) H 04/12/24 17:23 GFR Calculation Not Reportable 04/12/24 17:23 Glucose 102 mg/dL (65-115) 04/12/24 17:23 Calculated Osmolality 291 mOsm/kg (285-295) 04/12/24 17:23 Calcium 9.7 mg/dL (8.5-10.5) 04/12/24 17:23 Total Bilirubin 0.4 mg/dL (0.15-1.2) 04/12/24 17:23 AST 21 U/L (0-32) 04/12/24 17:23 ALT 17 U/L (0-33) 04/12/24 17:23 Alkaline Phosphatase 107 U/L (35-105) H 04/12/24 17:23 Total Protein 7.9 g/dL (6.6-8.7) 04/12/24 17:23 Albumin 4.4 g/dL (3.5-5.2) 04/12/24 17:23 Globulin 3.5 g/dL (1.3-4.6) 04/12/24 17:23 A&P Assessment and plan (1) Pacemaker at end of battery life: Status post pacemaker revision, currently seems to be stable. No hematoma at the pacemaker pocket. Tolerating the Keflex so far well (2) Aortic valve replaced: Patient had TAVR in 2009. 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 Continue on the current management (3) Mitral valve replaced: The initial mitral replacement was in 2001. This had a redo surgery in 2009?. Will continue on the current treatment measures. (4) History of atrial fibrillation: Patient is on Coumadin and IV heparin. INR is subtherapeutic (5) Multiple drug allergies: Patient is allergic to Lovenox. So for that reason, she was brought to the hospital for IV heparin. Continue the heparin. INR is 1.32 today Plan Continue the heparin as mentioned above. INR in the morning. Based on the clinical progress, further Management decisions will be made Also may repeat the BMP in the morning since the BMP on 04/12/2024 revealed a BUN of 37 with a creatinine of 1.0 Attestations 2 Medical Necessity Statement*: Patient requires continued hospital stay for close monitoring and further management Coding Level of Care Code 18707 Diagnoses Pacemaker at end of battery life Z45.010 Aortic valve replaced Z95.2 Mitral valve replaced Z95.2 History of atrial fibrillation Z86.79 Multiple drug allergies Z88.9
[2024-04-19] VITALS (10 sets, daily range): BP systolic 104–154; BP diastolic 54–70; PULSE 61–82; RESP 17–19; TEMP 36.4–36.8; O2SAT 92–98
[2024-04-19] MEDS: heparin drip 25,000 UNIT/500 ML PREMIX 13 UNIT IV (01:06)
[2024-04-19 01:20] LABS: Partial Thromboplastin Time 69.5 SECONDS (23.9-36.7)
[2024-04-19 01:24] LABS: Anion Gap 12.3 (5-19); Blood Urea Nitrogen 28 mg/dL (8-23); Calcium 9.2 mg/dL (8.5-10.5); Carbon Dioxide 26 mmol/L (22-29); Chloride 101 mmol/L (98-107); Creatinine Clr Calc Pharmacy 55.0029; Glucose 111 mg/dL (65-115); Osmolality Calculated 286 mOsm/kg (285-295); Potassium 4.3 mmol/L (3.5-5.1); Sodium 135 mmol/L (136-145)
[2024-04-19 01:31] LABS: INR 1.29 (0.8-1.2)
[2024-04-19] MEDS: sodium chloride 0.9% 1,000 ML 75 ML IV ×2 (02:55→13:30)
[2024-04-19 07:14] LABS: Partial Thromboplastin Time 69.8 SECONDS (23.9-36.7)
[2024-04-19] MEDS: cetirizine 10 mg Tablet PO (09:19)
[2024-04-19] MEDS: lisinopril 20 mg Tablet PO ×2 (09:19→18:05)
[2024-04-19] MEDS: ascorbic acid 500 mg Tablet PO (09:19)
[2024-04-19] MEDS: bumetanide 1 mg Tablet PO ×2 (09:19→18:05)
[2024-04-19] MEDS: cephALEXin 500 mg Capsule PO ×4 (09:20→21:19)
[2024-04-19] MEDS: potassium chloride ER 10 mEq Tablet PO ×2 (09:20→18:06)
[2024-04-19] MEDS: metoprolol tartrate 25 mg Tablet 12.5 MG PO ×2 (09:20→18:05)
[2024-04-19] MEDS: calcium carb-vit d 600mg/400unit 1 Tablet 1 EACH PO (09:20)
[2024-04-19] MEDS: docusate sodium 100 mg Capsule PO (09:20)
[2024-04-19] MEDS: ALPRAZOLAM 0.25 MG 0.125 EACH PO (09:27)
--- NOTE | 2024-04-19 10:36 | PM.PN ---
Subjective Subjective: Patient is on IV heparin. No specific complaints. The INR today is 1.23. PTT is therapeutic. No hematoma bleeding at the pacemaker site. The BUN has improved since 04/12/2024. Medications: Medication Review Details: Current Medications Acetaminophen (Acetaminophen 325 Mg Tablet) 325 mg PO QID PRN PRN Reason: Pain (Scale Score 1-3) Last Admin: 04/15/24 20:02 Dose: 325 mg Amlodipine Besylate (Amlodipine 5 Mg Tablet) 5 mg PO BEDTIME [facility] Last Admin: 04/18/24 21:33 Dose: 5 mg Ascorbic Acid (Ascorbic Acid 500 Mg Tablet) 500 mg PO DAILY [facility] Last Admin: 04/19/24 09:19 Dose: 500 mg Bumetanide (Bumetanide 1 Mg Tablet) 1 mg PO BID [facility] Last Admin: 04/19/24 09:19 Dose: 1 mg Calcium Carbonate (Calcium Carb-Vit D 600mg/400unit 1 Tablet) 1 each PO DAILY [facility] Last Admin: 04/19/24 09:20 Dose: 1 each Cephalexin HCl (Cephalexin 500 Mg Capsule) 500 mg PO QID [facility]; Protocol Last Admin: 04/19/24 09:20 Dose: 500 mg Cetirizine HCl (Cetirizine 10 Mg Tablet) 10 mg PO DAILY [facility] Last Admin: 04/19/24 09:19 Dose: 10 mg Diclofenac Sodium (Diclofenac 1% Topical Gel 100 Gm) 1 applic TOPICAL QID PRN PRN Reason: Pain (Scale Score 1-3) Docusate Sodium (Docusate Sodium 100 Mg Capsule) 100 mg PO DAILY [facility] Last Admin: 04/19/24 09:20 Dose: 100 mg Famotidine (Famotidine 20 Mg Tablet) 10 mg PO DAILY PRN PRN Reason: indigestion Fluticasone Propionate (Fluticasone Nasal [place] 16gm Btl) 2 spray INTRANASAL DAILY PRN PRN Reason: allergy symptoms Sodium Chloride (Sodium Chloride 0.9%) 1,000 mls @ 75 mls/hr IV .[id number] [facility] Last Admin: 04/19/24 02:55 Dose: 75 mls/hr Heparin Sodium/Sodium Chloride (Heparin Drip) 25,000 unit in 500 mls @ 0 mls/hr IV CONT [facility]; Protocol Last Titration: 04/19/24 07:51 Dose: 7.53 unit/kg/hr, 13 mls/hr Lisinopril (Lisinopril 20 Mg Tablet) 20 mg PO BID [facility] Last Admin: 04/19/24 09:19 Dose: 20 mg Metoprolol Tartrate (Metoprolol Tartrate 25 Mg Tablet) 12.5 mg PO BID [facility] Last Admin: 04/19/24 09:20 Dose: 12.5 mg Montelukast Sodium (Montelukast Sodium 10 Mg Tablet) 10 mg PO QPM [facility] Last Admin: 04/18/24 17:25 Dose: 10 mg Non-Formulary Medication (Alprazolam) 0.125 mg PO BID PRN PRN Reason: anxiety Last Admin: 04/19/24 09:27 Dose: 0.125 mg [id number] Ethyl Esters ([place]-3 Fatty Acids 1,000 Mg Capsule) 1,000 mg PO DAILY [facility] Last Admin: 04/19/24 09:21 Dose: Not Given Potassium Chloride (Potassium Chloride Er 10 Meq Tablet) 10 meq PO BID [facility] Last Admin: 04/19/24 09:20 Dose: 10 meq Warfarin Sodium (Warfarin 7.5 Mg Tablet) 7.5 mg PO DAILY@1400 [facility] Vitals/I&O/Wt Last Vital Signs Temp 97.8 F 04/19/24 07:52 Pulse 82 04/19/24 07:52 Resp 19 H 04/19/24 07:52 BP 154/70 04/19/24 07:52 Pulse Ox 94 04/19/24 07:52 O2 Del Method Room Air 04/19/24 07:52 04/18/24 04/19/24 04/19/24 22:59 06:59 14:59 Intake Total 432.5 / 9826.941 5646.250 / 3048.917 434.533 / 434.533 Balance 432.5 / 7744.780 7977.250 / 3048.917 434.533 / 434.533 Weight last 48 hrs Weight 209 lb 8 oz Weight 206 lb 9 oz Physical Exam Narrative: GENERAL: The patient is alert and oriented times three. Not in any acute distress. HEENT: No significant pallor, icterus or lymphadenopathy.Oral cavity: There are no mucous membrane lesions. NECK: Trachea appears to be central. No masses noted. No JVD or thyromegaly appreciated. RESPIRATORY: Chest is symmetrical. No intercostals muscle retraction or any accessory muscle activation. There is no chest wall tenderness. Breath sounds are heard bilaterally. No rales or rhonchi heard. No evidence of any consolidation. The pacemaker site has no hematoma or bleeding BREASTS: Deferred. HEART: The aortic and mitral valve opening and closing sounds are normal. No S3 or S4. Short systolic murmur in the lower sternal border. No diastolic murmurs.. No pericardial rub ABDOMEN: No vessel pulsations or distention. No tenderness. No organomegaly appreciated. Bowel sounds are normally heard. : Deferred. RECTAL: Deferred. LYMPHATIC: No lymphadenopathy noted in the neck. EXTREMITIES: No edema or cyanosis. No clubbing. MUSCULOSKELETAL: No acute joint deformities or swelling SKIN: There are no significant rashes or ecchymosis NEUROPSYCHIATRIC: The patient is alert and oriented x3. Appears to be in a good mood. No tremors or rigidity noted. Data 04/18/24 03:17 04/19/24 00:57 Other Labs: Laboratory Last Values WBC 5.92 10^3/uL (3.29-11.43) 04/12/24 17: RBC 3.78 10^6/uL (3.85-5.65) L 04/12/24 17: Hgb 10.20 g/dL (11.27-16.99) L 04/12/24 17: Hct 32.8 % (36-47) L 04/12/24 17:23 MCV 86.8 fl (85-98) 04/12/24 17: MCH 27.0 pg (27-33) 04/12/24 17: MCHC 31.1 g/dL (30-55) 04/12/24 17: RDW 16.2 % (12.1-15.1) H 04/12/24 17:23 Plt Count 142 10^3/cmm (157-399) L 04/18/24 03:17 MPV 10.1 fL (7.4-10.4) 04/12/24 17:23 Neut % (Auto) 74.1 % 04/12/24 17: Lymph % (Auto) 13.0 % 04/12/24 17: [place] % (Auto) 10.0 % 04/12/24 17: Eos % (Auto) 1.9 % 04/12/24 17: Baso % (Auto) 0.7 % 04/12/24 17:23 Neut # (Auto) 4.39 10^3/uL (1.8-7.7) 04/12/24 17:23 Lymph # (Auto) 0.8 10^3/uL (0.8-4.8) 04/12/24 17:23 [place] # (Auto) 0.6 10^3/uL (0.2-0.9) 04/12/24 17: Eos # (Auto) 0.1 10^3/uL (0.0-0.8) 04/12/24 17: Baso # (Auto) 0.0 10^3/uL (0.0-0.1) 04/12/24 17: Nucleated RBC % (auto) 0 % 04/12/24 17: Nucleated RBCs # 0.0 /100WBC 04/12/24 17: PT 16.50 SECONDS (12.1-14.9) H 04/19/24 00:57 INR 1.29 (0.8-1.2) H 04/19/24 00:57 APTT 69.8 SECONDS (23.9-36.7) H 04/19/24 06:44 Sodium 135 mmol/L (136-145) L 04/19/24 00:57 Potassium 4.3 mmol/L (3.5-5.1) 04/19/24 00:57 Chloride 101 mmol/L (98-107) 04/19/24 00:57 Carbon Dioxide 26 mmol/L (22-29) 04/19/24 00:57 Anion Gap 12.3 (5-19) 04/19/24 00:57 BUN 28 mg/dL (8-23) H 04/19/24 00:57 Creatinine 1.0 mg/dL (0.5-0.9) H 04/19/24 00:57 GFR Calculation Not Reportable 04/19/24 00:57 Glucose 111 mg/dL (65-115) 04/19/24 00:57 Calculated Osmolality 286 mOsm/kg (285-295) 04/19/24 00:57 Calcium 9.2 mg/dL (8.5-10.5) 04/19/24 00:57 Total Bilirubin 0.4 mg/dL (0.15-1.2) 04/12/24 17:23 AST 21 U/L (0-32) 04/12/24 17:23 ALT 17 U/L (0-33) 04/12/24 17:23 Alkaline Phosphatase 107 U/L (35-105) H 04/12/24 17:23 Total Protein 7.9 g/dL (6.6-8.7) 04/12/24 17:23 Albumin 4.4 g/dL (3.5-5.2) 04/12/24 17:23 Globulin 3.5 g/dL (1.3-4.6) 04/12/24 17:23 A&P Assessment and plan (1) Anticoagulation goal of INR 2.5 to 3.5: Patient has multivalvular heart disease. The INR goal is 2.5-3.5. I may go ahead and give Coumadin 7.5 mg p.o. today. Repeat INR in the morning. (2) Pacemaker at end of battery life: Status post pacemaker revision, currently seems to be stable. No hematoma at the pacemaker pocket. Tolerating the Keflex so far well. Will continue for a total of 5 days. (3) Aortic valve replaced: Patient had TAVR in 2009. 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 Continue on the current management (4) Mitral valve replaced: The initial mitral replacement was in 2001. This had a redo surgery in 2009?. Will continue on the current treatment measures. (5) History of atrial fibrillation: Patient is on Coumadin and IV heparin. INR is subtherapeutic (6) Multiple drug allergies: Patient is allergic to Lovenox. So for that reason, she was brought to the hospital for IV heparin. Continue the heparin. INR is 1.32 today Plan Continue the heparin as mentioned above. INR in the morning. Based on the clinical progress, further Management decisions will be made Attestations Medical Necessity Statement*: Patient requires continued hospital stay for close monitoring and further management Coding Level of Care Code 08995 Diagnoses Anticoagulation goal of INR 2.5 to 3.5 Z51.81; Z79.01 Pacemaker at end of battery life Z45.010 Aortic valve replaced Z95.2 Mitral valve replaced Z95.2 History of atrial fibrillation Z86.79 Multiple drug allergies Z88.9
--- NOTE | 2024-04-19 13:15 | PC.SOCIAL ---
IMM Updated Updated pt on IMM. No questions voiced. Provided pt a copy. Initialed, dated, & timed copy in chart.
[2024-04-19 13:39] LABS: Partial Thromboplastin Time 63.2 SECONDS (23.9-36.7)
[2024-04-19] MEDS: amlodipine 5 mg Tablet PO (21:19)
[2024-04-19 22:02] LABS: Partial Thromboplastin Time 44.8 SECONDS (23.9-36.7)
[2024-04-20] MEDS: sodium chloride 0.9% 1,000 ML 75 ML IV (02:12)
[2024-04-20 04:00] VITALS: BP 150/55; PULSE 84; RESP 17; TEMP 36.9; O2SAT 92
[2024-04-20 05:24] LABS: Platelet Count 149 10^3/cmm (157-399)
[2024-04-20 05:49] LABS: Partial Thromboplastin Time 97.5 SECONDS (23.9-36.7)
[2024-04-20 06:45] VITALS: PULSE 78
[2024-04-20 07:39] VITALS: BP 156/68; PULSE 93; RESP 20; TEMP 36.7; O2SAT 90
[2024-04-20 08:36] LABS: Glucose Point of Care 127 mg/dL (70-110)
[2024-04-20] MEDS: ascorbic acid 500 mg Tablet PO (09:00)
[2024-04-20] MEDS: calcium carb-vit d 600mg/400unit 1 Tablet 1 EACH PO (09:00)
[2024-04-20] MEDS: bumetanide 1 mg Tablet PO ×2 (09:00→12:07)
[2024-04-20] MEDS: cephALEXin 500 mg Capsule PO ×2 (09:00→12:07)
[2024-04-20] MEDS: cetirizine 10 mg Tablet PO (09:00)
[2024-04-20] MEDS: omega-3 fatty acids 1,000 mg Capsule 1000 MG PO (09:01)
[2024-04-20] MEDS: docusate sodium 100 mg Capsule PO (09:01)
[2024-04-20] MEDS: ALPRAZOLAM 0.25 MG 0.125 EACH PO (09:01)
[2024-04-20] MEDS: lisinopril 20 mg Tablet PO (09:01)
[2024-04-20] MEDS: metoprolol tartrate 25 mg Tablet 12.5 MG PO (09:01)
[2024-04-20] MEDS: potassium chloride ER 10 mEq Tablet PO (09:01)
[2024-04-20 09:46] LABS: INR 1.64 (0.8-1.2)
--- NOTE | 2024-04-20 10:55 | PC.NURSE ---
Fluids paused this AM d/t SOB, wheezing, and increased leg swelling. Notified Dr. Harris. New order for Bumex entered.
[2024-04-20 11:28] VITALS: BP 146/63; PULSE 71; RESP 18; TEMP 36.6; O2SAT 96
[2024-04-20 12:39] LABS: Partial Thromboplastin Time 55.3 SECONDS (23.9-36.7)
--- NOTE | 2024-04-20 13:16 | PM.DCS ---
Discharge Providers Date of Admission: 04/12/24 13:54 Date of Discharge: April 20, 2024 Attending Provider at Admission: Zachariah Harris MD Attending Provider at Discharge: Zachariah Harris MD Consults: None Primary Care Provider: Wilner Nelson MD Diagnoses at Discharge Discharge Diagnosis (1) Anticoagulation goal of INR 2.5 to 3.5: Details from hospital stay: The INR today is 1.64. Status: Acute (2) Pacemaker at end of battery life: Details from hospital stay: The pacemaker was revised on last Monday. She had an uncomplicated post procedure course. No allergies to any medications. Status: Acute (3) Aortic valve replaced: Details from hospital stay: Continue on the current monitoring schedule Status: Acute (4) Mitral valve replaced: Details from hospital stay: Functioning okay. Continue on the current follow-up schedule Status: Acute (5) History of atrial fibrillation: Details from hospital stay: The patient premature atrial contractions on AV paced rhythm. Status: Acute (6) Multiple drug allergies: Details from hospital stay: Apparently has not had any allergies to the any of the medications during the hospital stay Status: Acute Reason for Visit Reason for Visit: Brief History: This is a 74-year-old white female with a history of multiple valvular heart disease and chronic atrial fibrillation, had a permanent pacer implantation for symptomatic bradycardia. She had the elective replacement indication STANISLAW. She is at high risk for thromboembolic events. Apparently she has multiple drug allergies including Lovenox and lidocaine. So she was preadmitted for bridging anticoagulation. Hospital Course Hospital Course She had an uneventful postprocedure course. She was started on IV heparin after 24 hours. She was started on the Coumadin on the same day. Her INR today is 1.64. Yesterday's INR was 1.23. She was given 7.5 mg of Coumadin today. The INR level is going up as expected. The patient is wanting to go home today. She seems understand the implications. Since she is seems to be stable, it was thought to be appropriate to discharge home today. She has an INR machine at home. Will repeat the INR in the morning. Physical Exam Narrative: GENERAL: The patient is alert and oriented times three. Not in any acute distress. HEENT: No significant pallor, icterus or lymphadenopathy.Oral cavity: There are no mucous membrane lesions. NECK: Trachea appears to be central. No masses noted. No JVD or thyromegaly appreciated. RESPIRATORY: Chest is symmetrical. No intercostals muscle retraction or any accessory muscle activation. There is no chest wall tenderness. Breath sounds are heard bilaterally. No rales or rhonchi heard. No evidence of any consolidation. The pacemaker site has no hematoma or bleeding BREASTS: Deferred. HEART: The aortic and mitral valve opening and closing sounds are normal. No S3 or S4. Short systolic murmur in the lower sternal border. No diastolic murmurs.. No pericardial rub ABDOMEN: No vessel pulsations or distention. No tenderness. No organomegaly appreciated. Bowel sounds are normally heard. : Deferred. RECTAL: Deferred. LYMPHATIC: No lymphadenopathy noted in the neck. EXTREMITIES: No edema or cyanosis. No clubbing. MUSCULOSKELETAL: No acute joint deformities or swelling SKIN: There are no significant rashes or ecchymosis NEUROPSYCHIATRIC: The patient is alert and oriented x3. Appears to be in a good mood. No tremors or rigidity noted. 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 Routine Exams 04/15/24 06:37 Completed Laboratory Results WBC 5.92 10^3/uL (3.29-11.43) 04/12/24 17: RBC 3.78 10^6/uL (3.85-5.65) L 04/12/24 17:23 Hgb 10.20 g/dL (11.27-16.99) L 04/12/24 17:23 Hct 32.8 % (36-47) L 04/12/24 17: MCV 86.8 fl (85-98) 04/12/24 17:23 MCH 27.0 pg (27-33) 04/12/24 17: MCHC 31.1 g/dL (30-55) 04/12/24 17: RDW 16.2 % (12.1-15.1) H 04/12/24 17:23 Plt Count 149 10^3/cmm (157-399) L 04/20/24 05:12 MPV 10.1 fL (7.4-10.4) 04/12/24 17: Neut % (Auto) 74.1 % 04/12/24 17:23 Lymph % (Auto) 13.0 % 04/12/24 17:23 [place] % (Auto) 10.0 % 04/12/24 17:23 Eos % (Auto) 1.9 % 04/12/24 17:23 Baso % (Auto) 0.7 % 04/12/24 17:23 Neut # (Auto) 4.39 10^3/uL (1.8-7.7) 04/12/24 17:23 Lymph # (Auto) 0.8 10^3/uL (0.8-4.8) 04/12/24 17:23 [place] # (Auto) 0.6 10^3/uL (0.2-0.9) 04/12/24 17:23 Eos # (Auto) 0.1 10^3/uL (0.0-0.8) 04/12/24 17:23 Baso # (Auto) 0.0 10^3/uL (0.0-0.1) 04/12/24 17: Nucleated RBC % (auto) 0 % 04/12/24 17: Nucleated RBCs # 0.0 /100WBC 04/12/24 17:23 PT 20.00 SECONDS (12.1-14.9) H 04/20/24 05:12 INR 1.64 (0.8-1.2) H 04/20/24 05:12 APTT 55.3 SECONDS (23.9-36.7) H 04/20/24 12:20 Sodium 135 mmol/L (136-145) L 04/19/24 00:57 Potassium 4.3 mmol/L (3.5-5.1) 04/19/24 00:57 Chloride 101 mmol/L (98-107) 04/19/24 00:57 Carbon Dioxide 26 mmol/L (22-29) 04/19/24 00:57 Anion Gap 12.3 (5-19) 04/19/24 00:57 BUN 28 mg/dL (8-23) H 04/19/24 00:57 Creatinine 1.0 mg/dL (0.5-0.9) H 04/19/24 00:57 GFR Calculation Not Reportable 04/19/24 00:57 Glucose 111 mg/dL (65-115) 04/19/24 00:57 POC Glucose 127 mg/dL (70-110) H 04/20/24 08:21 Calculated Osmolality 286 mOsm/kg (285-295) 04/19/24 00:57 Calcium 9.2 mg/dL (8.5-10.5) 04/19/24 00:57 Total Bilirubin 0.4 mg/dL (0.15-1.2) 04/12/24 17:23 AST 21 U/L (0-32) 04/12/24 17:23 ALT 17 U/L (0-33) 04/12/24 17:23 Alkaline Phosphatase 107 U/L (35-105) H 04/12/24 17:23 Total Protein 7.9 g/dL (6.6-8.7) 04/12/24 17:23 Albumin 4.4 g/dL (3.5-5.2) 04/12/24 17:23 Globulin 3.5 g/dL (1.3-4.6) 04/12/24 17:23 Additional Data from Hospital Stay INR from today is 1.64. Procedures Performed Pacemaker revision Vitals Last Vital Signs Temp 97.9 F 04/20/24 11:28 Pulse 71 04/20/24 11:28 Resp 18 04/20/24 11:28 BP 146/63 04/20/24 11:28 Pulse Ox 96 04/20/24 11:28 O2 Del Method Room Air 04/20/24 11:28 Discharge Plan Discharge Patient Disposition: Home Condition: Stable Prescriptions: Continued amlodipine 5 mg tablet 5 mg PO DAILY lisinopril 20 mg tablet 20 mg PO BID fluticasone propionate 50 mcg/actuation spray,suspension 2 spray INTRANASAL DAILY PRN (Reason: allergy symptoms) calcium carbonate-vitamin D3 600 mg(1,500mg) -500 unit capsule 1 cap PO DAILY omega-3 fatty acids [Fish Oil Concentrate] 1,000 mg capsule 1,000 mg PO DAILY famotidine 10 mg tablet,chewable 10 mg PO DAILY PRN (Reason: indigestion) ascorbic acid (vitamin C) 500 mg capsule 500 mg PO DAILY docusate sodium [Colace] 100 mg capsule 100 mg PO DAILY alprazolam 0.25 mg tablet 0.125 mg PO BID PRN (Reason: anxiety) potassium chloride 10 mEq tablet extended release 10 meq PO BID cefpodoxime 200 mg tablet 200 mg PO DAILY PRN (Reason: infection) Rx Instructions: predental procedure warfarin 5 mg tablet 5 mg PO DAILY Protocol: Dose Management Condition: Monday Dose/Route: 5 mg Instruction: 1 x 5 mg tablet Condition: Monday Dose/Route: 5 mg Instruction: 1 x 5 mg tablet Condition: Monday Dose/Route: 2.5 mg Instruction: 0.5 x 5 mg tablets Condition: Monday Dose/Route: 2.5 mg Instruction: 0.5 x 5 mg tablets Condition: Dose/Route: 5 mg Instruction: 1 x 5 mg tablet Condition: Monday Dose/Route: 5 mg Instruction: 1 x 5 mg tablet Condition: Monday Dose/Route: 5 mg Instruction: 1 x 5 mg tablet Protocol Text: Adjustment Start Date: Monday04/10/24 INR Value: 2.7 INR Date: 04/08/24 Recheck Date: 04/17/24 bumetanide 1 mg tablet 1 mg PO BID levocetirizine [Xyzal] 5 mg tablet 2.5 mg PO DAILY (DME) comp.stocking,knee,long,medium Misc See Rx Instructions .Route Qty: 12 1RF Rx Instructions: As directed metoprolol tartrate 25 mg tablet 12.5 mg PO BID Qty: 90 2RF Voltaren 1 % Gel 2 g TOPICAL QID PRN (Reason: Pain (Scale Score 1-3)) Rx Instructions: apply to single elbow, wrist or hand; for hand includes palm/fingers/back of hand montelukast 10 mg Tablet 10 mg PO DAILY doxycycline hyclate 100 mg Tablet 100 mg PO BID Tylenol 325 mg Capsule 325 mg PO QID PRN (Reason: Pain (Scale Score 1-3)) Discharge Orders: Discharge Order (Routine); Ordered 04/20/24 Ordered By: Zachariah Harris Referrals: Guadalupe Dominguez FNP [Nurse Practitioner] - 04/22/24 8:30 am Discharge Diet: Advance as tolerated Discharge Activity: Resume usual activity and Increase activity as tolerated Patient Instructions: Warfarin (By mouth), Pacemaker (DC), Opioid Safety, Post Pacemaker - Steven Activity Restrictions/Additional Instructions: Minimize the movements of the left shoulder to 45 degrees for a total of 10 days Appointment the [facility] next Monday or Monday for a wound check and pacemaker check-with Guadalupe Dominguez Appointment with me in the office as scheduled Discharge Attestations Time Spent in Discharge Care*: less than 30 min Quality Metrics Clinical Quality Measures [ No reported AMI, CVA or VTE this stay] Coding Level of Care Code 29738 Diagnoses Anticoagulation goal of INR 2.5 to 3.5 Z51.81; Z79.01 Pacemaker at end of battery life Z45.010 Aortic valve replaced Z95.2 Mitral valve replaced Z95.2 History of atrial fibrillation Z86.79 Multiple drug allergies Z88.9 Time Spent (min) 30
[2024-04-20 14:33] VITALS: BP 146/63; PULSE 71; RESP 18; TEMP 36.6; O2SAT 96
== END 2024-04-20 14:33 | disposition home or self-care (01) | DRG 259 ==
PROVIDERS: Internal Medicine; Admitting Provider Internal Medicine Cardiovascular Disease; PCP Family Medicine; Visit Provider Internal Medicine Cardiovascular Disease
PROC: 0JH604Z Insertion of Pacemaker, Single Chamber into Chest Subcutaneous Tissue and Fascia, Open Approach (ICD-10-PCS; principal; 2024-04-15 08:30)
DX: Z45.010 Encounter for checking and testing of cardiac pacemaker pulse generator [battery] (principal); I48.20 Chronic atrial fibrillation, unspecified; Z95.2 Presence of prosthetic heart valve; Z79.01 Long term (current) use of anticoagulants; Z88.0 Allergy status to penicillin; Z88.2 Allergy status to sulfonamides; Z88.8 Allergy status to other drugs, medicaments and biological substances
CPT/HCPCS: 33227; 36415; 36416; 80048; 80053; 82962; 85025; 85049; 85610; 85730; 93005; 94664; 96374; 97165; 99152; 99153; A4216; C1769; C1786; J1644; J2250; J3010; J3370; J7030; J7050

== ENCOUNTER → 2024-04-23 11:44 | Outpatient (BNVA) | payer MEDICARE, OTHER, SELFPAY | PROVIDERS: PCP Family Medicine; Visit Provider Internal Medicine Cardiovascular Disease | DX: R06.02 Shortness of breath (principal) | CPT/HCPCS: 36415; 80048; 83880; 99214 ==

== ENCOUNTER → 2024-06-20 10:49 | Outpatient (BNVA) | payer MEDICARE, OTHER, SELFPAY | PROVIDERS: PCP Family Medicine; Visit Provider Nurse Practitioner Family | DX: I10 Essential (primary) hypertension (principal); Z95.0 Presence of cardiac pacemaker; Z95.2 Presence of prosthetic heart valve; I48.91 Unspecified atrial fibrillation; Z79.01 Long term (current) use of anticoagulants; R06.09 Other forms of dyspnea | CPT/HCPCS: 99214 ==

== ENCOUNTER 2024-07-01 11:52 | Outpatient (CLI) | payer MEDICARE, OTHER, SELFPAY ==
[2024-07-01 12:39] LABS: INR 3.95 (0.83-1.21); Prothrombin Time (Patient) 40.2 Seconds (12.0-15.1)
== END 2024-07-01 11:53 | disposition home or self-care (01) ==
LOC: LAB 11:55
PROVIDERS: PCP Family Medicine; Visit Provider Internal Medicine Cardiovascular Disease
DX: Z95.2 Presence of prosthetic heart valve (principal)
CPT/HCPCS: 36415; 85610

== ENCOUNTER 2024-07-09 09:39 | Outpatient (CLI) | payer MEDICARE, OTHER, SELFPAY ==
[2024-07-09 10:09] LABS: INR 2.79 (0.83-1.21); Prothrombin Time (Patient) 30.5 Seconds (12.0-15.1)
== END 2024-07-09 09:40 | disposition home or self-care (01) ==
LOC: LAB 09:41
PROVIDERS: PCP Family Medicine; Visit Provider Internal Medicine Cardiovascular Disease
DX: Z95.2 Presence of prosthetic heart valve (principal)
CPT/HCPCS: 36415; 85610

== ENCOUNTER 2024-07-16 10:25 | Outpatient (CLI) | payer MEDICARE, OTHER, SELFPAY ==
[2024-07-16 11:27] LABS: INR 2.55 (0.83-1.21); Prothrombin Time (Patient) 28.4 Seconds (12.0-15.1)
== END 2024-07-16 10:26 | disposition home or self-care (01) ==
PROVIDERS: Internal Medicine Cardiovascular Disease; PCP Family Medicine; Visit Provider Family Medicine
DX: Z95.2 Presence of prosthetic heart valve (principal)
CPT/HCPCS: 36415; 85610

== ENCOUNTER → 2024-07-30 16:03 | Outpatient (BNVA) | payer MEDICARE, OTHER, SELFPAY | PROVIDERS: PCP Family Medicine | DX: Z45.018 Encounter for adjustment and management of other part of cardiac pacemaker (principal) | CPT/HCPCS: 93296 ==

== ENCOUNTER → 2024-10-22 10:48 | Outpatient (BNVA) | payer MEDICARE, OTHER, SELFPAY | PROVIDERS: PCP Family Medicine; Visit Provider Nurse Practitioner Family | DX: I10 Essential (primary) hypertension (principal); Z95.2 Presence of prosthetic heart valve; Z86.79 Personal history of other diseases of the circulatory system; Z95.0 Presence of cardiac pacemaker | CPT/HCPCS: 99214 ==

== ENCOUNTER 2024-11-21 14:05 | Outpatient (CLI) | payer MEDICARE, OTHER, SELFPAY ==
--- NOTE | 2024-11-21 14:15 | USCV_ITS ---
Richelle Klein Age: 74 Gender: F : 1950 Exam Date: 11/21/2024 14:18 Ordering Phys: Adrianna Santos NP Technologist: Exam Location: [facility] [place] Indication: mitral and ao prost BP: 124 / 60 HR: 80 Rhythm: Sinus Technical Quality: Adequate MEASUREMENTS (Male / Female) Normal Values 2D ECHO LV Diastolic Diameter PLAX 5.0 cm 4.2 - 5.9 / 3.9 - 5.3 cm IVS Diastolic Thickness 1.5 cm 0.6 - 1.0 / 0.6 - 0.9 cm IVS Systolic Thickness 1.5 cm LVPW Diastolic Thickness 1.2 cm 0.6 - 1.0 / 0.6 - 0.9 cm LVPW Systolic Thickness 1.7 cm LVOT Diameter 2.5 cm LV Ejection Fraction 2D Teich 48.4 % LV Ejection Fraction MOD 4C 44.9 % LV Ejection Fraction MOD 2C 62.1 % LV Ejection Fraction 2C AL 64.1 % LA Diameter 3.9 cm RA Systolic Volume 4C AL 130.6 ml RA Systolic Volume 4C MOD 126.1 ml Aorta at Sinotubular Diameter 3.6 cm IVC Diameter 2.5 cm M-MODE LA Ao Ratio MM 1.2 AV Cusp Separation MM 2.3 cm DOPPLER AV Peak Velocity 312.5 cm/s LVOT Peak Velocity 123.0 cm/s AV Area Cont Eq vti 2.0 cm squared AV Area Cont Eq pk 1.9 cm squared MV Area PHT 3.9 cm squared Mitral E to A Ratio 6.9 TV Peak Velocity 310.0 cm/s TR Peak Velocity 330.0 cm/s TR Peak Gradient 43.6 mmHg TV Peak E Velocity 156.0 cm/s PV Peak Velocity 99.7 cm/s FINDINGS Left Ventricle Moderate concentric left ventricular hypertrophy. No regional wall motion abnormalities. LV ejection fraction of 62%. Right Ventricle Catheter/pacemaker wire in the right ventricular cavity. Right Atrium Catheter/pacemaker wire in the right atrial appendage. Moderately increased right atrial size. Left Atrium Markedly increased left atrial size. Mitral Valve The prosthetic valve at the mitral position appears to be well- seated. Peak gradient across the mitral valve was found to be 15 mmHg Aortic Valve The bioprosthetic valve the aortic position appears to be well- seated.trace aortic valve regurgitation. Peak velocity across the aortic valve was 3.12 m/s with a valve area of 2.0 cm squared Tricuspid Valve [id number] tricuspid valve regurgitation. Estimated pulmonary artery peak systolic pressure 54 mmHg Pulmonic Valve Wgoe-lo-eoirdodm pulmonary valve regurgitation. Pericardium No pericardial effusion. Aorta Normal aortic annulus size. IVC Normal IVC dimension with <50% respiratory change of the inferior vena cava. CONCLUSIONS Moderate concentric left ventricular hypertrophy. No regional wall motion abnormalities. LV ejection fraction of 62%. The bioprosthetic valve the aortic position appears to be well- seated.trace aortic valve regurgitation. Peak velocity across the aortic valve was 3.12 m/s with a valve area of 2.0 cm squared. The prosthetic valve at the mitral position appears to be well- seated. Peak gradient across the mitral valve was found to be 15 mmHg. [id number] tricuspid valve regurgitation. Moderate pulmonary hypertension -estimated pulmonary artery peak systolic pressure 54 mmHg. Uzpg-rc-haruhxja pulmonary valve regurgitation. There is no pericardial effusion. There are no intracardiac masses. Compared to the study from 01/30/2023, there may be significant change Dr Zachariah Harris MD [facility] (Electronically Signed) Final Date: 21 November 2024 22:35 S
== END 2024-11-21 14:06 | disposition home or self-care (01) ==
LOC: RAD 14:06
PROVIDERS: PCP Family Medicine; Visit Provider Nurse Practitioner Family
DX: Z95.2 Presence of prosthetic heart valve (principal); R93.1 Abnormal findings on diagnostic imaging of heart and coronary circulation; I07.1 Rheumatic tricuspid insufficiency; I37.1 Nonrheumatic pulmonary valve insufficiency; I27.20 Pulmonary hypertension, unspecified
CPT/HCPCS: 93306

== ENCOUNTER → 2025-01-28 11:22 | Outpatient (BNVA) | payer MEDICARE, OTHER, SELFPAY | PROVIDERS: PCP Family Medicine; Visit Provider Internal Medicine Cardiovascular Disease | DX: Z45.018 Encounter for adjustment and management of other part of cardiac pacemaker (principal) | CPT/HCPCS: 93296 ==

== ENCOUNTER → 2025-07-02 10:03 | Outpatient (BNVA) | payer MEDICARE, OTHER, SELFPAY | PROVIDERS: PCP Family Medicine; Visit Provider Internal Medicine Cardiovascular Disease | DX: R06.02 Shortness of breath (principal); Z95.0 Presence of cardiac pacemaker; Z95.2 Presence of prosthetic heart valve; Z79.01 Long term (current) use of anticoagulants; Z86.79 Personal history of other diseases of the circulatory system | CPT/HCPCS: 36415; 80048; 83880; 99214 ==

== ENCOUNTER 2025-07-22 10:04 | Outpatient (CLI) | payer MEDICARE, OTHER, SELFPAY ==
[2025-07-22 11:28] LABS: Anion Gap 12.4 (5-19); Blood Urea Nitrogen 28 mg/dL (8-23); Calcium 9.7 mg/dL (8.5-10.5); Carbon Dioxide 31 mmol/L (22-29); Chloride 99 mmol/L (98-107); Glucose 135 mg/dL (65-115); NT Pro B Type Natriuretic Pept 498 pg/mL (0-450); Osmolality Calculated 294 mOsm/kg (285-295); Potassium 4.4 mmol/L (3.5-5.1); Sodium 138 mmol/L (136-145)
== END 2025-07-22 10:05 | disposition home or self-care (01) ==
LOC: LAB 10:06
PROVIDERS: PCP Family Medicine; Visit Provider Internal Medicine Cardiovascular Disease
DX: Z86.79 Personal history of other diseases of the circulatory system (principal); I10 Essential (primary) hypertension; R06.02 Shortness of breath
CPT/HCPCS: 36415; 80048; 83880

== ENCOUNTER → 2025-07-30 12:37 | Outpatient (BNVA) | payer MEDICARE, OTHER, SELFPAY | PROVIDERS: PCP Family Medicine; Visit Provider Internal Medicine Cardiovascular Disease | DX: Z45.018 Encounter for adjustment and management of other part of cardiac pacemaker (principal) | CPT/HCPCS: 93296 ==